=== PATIENT | female | born 1965 | race American Indian/Alaskan Native ===

== ENCOUNTER 2018-03-28 11:01 | Inpatient (IN) | payer MEDICARE, MEDICAID ==
--- NOTE | 2018-03-28 11:18 | ED PDOC ---
Arrival/HPI - General Chief Complaint: Weakness/Neurological Deficit Time Seen by Provider: 03/28/18 11:17 - History of Present Illness Narrative History of Present Illness (Text): 03/28/18 11:18 A 52 year old female, whose past medical history includes renal failure ( currently undergoing dialysis) and TIA, presents to the emergency department accompanied by family complaining of weakness in her bilateral lower extremities since yesterday. Patient reports her legs feel heavy and has been unable to ambulate due to this. Patient denies any fever, chills, shortness of breath, chest pain, diarrhea, nausea, vomiting, urinary symptoms, back pain, neck pain, headache, dizziness, or any other complaints. PMD: Dr. Pruitt Time/Duration: 24 hours (yesterday ) Symptom Onset: Gradual Symptom Course: Unchanged Activities at Onset: Light Context: Home Past Medical History - Provider Review Nursing Documentation Reviewed: Yes - Tetanus Immunization Tetanus Immunization: Unknown - Cardiac Hx Cardiac Disorders: Yes Hx Peripheral Vascular Disease: Yes - Pulmonary Hx Respiratory Disorders: Yes Hx Chronic Obstructive Pulmonary Disease (COPD): Yes Hx Emphysema: Yes - Neurological Hx Neurological Disorder: Yes Hx Transient Ischemic Attacks (TIA): Yes - HEENT Hx HEENT Disorder: Yes - Renal Hx Renal Disorder: Yes Hx Dialysis: Yes - Endocrine/Metabolic Hx Endocrine Disorders: Yes Hx Diabetes Mellitus Type 2: Yes - Integumentary Hx Dermatological Disorder: No - Musculoskeletal/Rheumatological Hx Musculoskeletal Disorders: Yes Hx Unsteady Gait: Yes - Gastrointestinal Hx Gastrointestinal Disorders: Yes Hx Gastroesophageal Reflux: Yes Other/Comment: Gastroparesis - Psychiatric Hx Psychophysiologic Disorder: Yes Hx Anxiety: Yes Hx Depression: Yes Hx Substance Use: No - Surgical History Hx Coronary Stent: Yes Hx Vascular Access Device: Yes - Anesthesia Hx Anesthesia: Yes Hx Anesthesia Reactions: No Family/Social History - Physician Review Nursing Documentation Reviewed: Yes Family/Social History: Unknown Family HX Smoking Status: Former Smoker Hx Alcohol Use: No Hx Substance Use: No Allergies/Home Meds Allergies/Adverse Reactions: Allergies levofloxacin [From Levaquin] Allergy (Verified 03/28/18 11:11) RASH Penicillins Allergy (Verified 03/28/18 11:11) RASH acetaminophen [From Tylenol PM] Adverse Reaction (Verified 03/28/18 11:11) NAUSEA diphenhydramine HCl [From Tylenol PM] Adverse Reaction (Verified 03/28/18 11:11) NAUSEA gabapentin Adverse Reaction (Verified 03/28/18 11:11) NAUSEA heparin Adverse Reaction (Verified 03/28/18 11:11) NAUSEA Shellfish Allergy (Uncoded 03/28/18 11:11) SWELLING Home Medications: Home Meds Medication Instructions Recorded Confirmed Aspirin [Ecotrin] 325 mg PO DAILY 08/03/17 03/28/18 Cinacalcet [Sensipar] 30 mg PO DAILY 08/03/17 03/28/18 Clopidogrel [Plavix] 1 tab PO DAILY 08/03/17 03/28/18 Isosorbide Mononitrate [Imdur] 1 tab PO DAILY 08/03/17 03/28/18 Multivitamin [Daily Mila] 1 tab PO DAILY 08/03/17 03/28/18 Omeprazole [Omeprazole] 40 mg PO DAILY 08/03/17 03/28/18 cloNIDine [Catapres] 1 tab PO TID 08/03/17 03/28/18 Labetalol [Trandate] 100 mg PO Q12 03/28/18 03/28/18 Review of Systems - Physician Review All systems were reviewed & negative as marked: Yes - Review of Systems Constitutional: absent: Fevers, Night Sweats Respiratory: absent: SOB Cardiovascular: absent: Chest Pain Gastrointestinal: absent: Diarrhea, Nausea, Vomiting Genitourinary Female: absent: Urine Output Changes Musculoskeletal: absent: Back Pain, Neck Pain Neurological: Other (weakness in bilateral lower extremities). absent: Headache , Dizziness Physical Exam Vital Signs Reviewed: Yes Vital Signs Temp Pulse Resp BP Pulse Ox 03/28/18 14:41 88 18 187/93 H 100 03/28/18 13:36 86 18 198/71 H 100 03/28/18 12:16 89 18 151/105 H 100 03/28/18 11:02 98.7 F 85 18 194/95 H 100 Temperature: Afebrile Blood Pressure: Hypertensive Pulse: Regular Respiratory Rate: Normal Appearance: Positive for: Well-Appearing, Non-Toxic, Comfortable Pain Distress: None Mental Status: Positive for: Alert and Oriented X 3 - Systems Exam Head: Present: Atraumatic, Normocephalic Pupils: Present: PERRL Extroacular Muscles: Present: EOMI Conjunctiva: Present: Normal Mouth: Present: Moist Mucous Membranes Neck: Present: Normal Range of Motion Respiratory/Chest: Present: Clear to Auscultation, Good Air Exchange. No: Respiratory Distress, Accessory Muscle Use Cardiovascular: Present: Murmurs (systolic ejection murmur radiating up to the neck), Other (thrill in right forearm ). No: Regular Rate and Rhythm, Normal S1 , S2, Irregular Rhythm, Peripheal Pulses Present, Tachycardic, Bradycardic, Rub , Gallop, Muffled Abdomen: No: Tenderness, Distention, Peritoneal Signs Back: Present: Normal Inspection Upper Extremity: Present: Normal Inspection. No: Cyanosis, Edema Lower Extremity: Present: Neurovascularly Intact (diminished sensations on bilateral lower extremities), Other (4 to 5 strenght bilateral extremities ). No: Normal Inspection, Edema, CALF TENDERNESS, NORMAL PULSES, Cyanosis, Normal ROM, Ankit's Sign, Tenderness, Swelling, Erythema, Deformity, Temperature Abnormalties, Capillary Refill < 2 s Neurological: Present: GCS=15, CN II-XII Intact, Speech Normal Skin: Present: Warm, Dry, Normal Color. No: Rashes Psychiatric: Present: Alert, Oriented x 3, Normal Insight, Normal Concentration Medical Decision Making ED Course and Treatment: 03/28/18 11:27 Impression: A 52 year old female presents to the emergency department complaining of weakness in her bilateral lower extremities. Differential Diagnosis included but are not limited to: Stroke Plan: -- Type and Screen stat -- Head CT without contrast [Code Stroke] -- EKG -- Labs -- Stroke Team consult -- CBC -- COAG -- Chest X-ray -- IV fluids -- Reassess and disposition Prior Visits: Notes and results from previous visits were reviewed. Progress Notes: 03/28/18 12:33 Dr. Newberry, neurology in the ED for eval 03/28/18 12:45 Dictator : Rafal Kim MD PROCEDURE: CT HEAD WITHOUT CONTRAST. FINDINGS: HEMORRHAGE: No acute parenchymal, subarachnoid or extra-axial hemorrhage. BRAIN: Mild moderate diffuse/confluent chronic periventricular white matter ischemic changes seen extending peripherally into the deep and subcortical white matter both cerebral hemispheres. In addition, there are age-indeterminate infarct changes seen in the left anterior basal ganglia. There appears to be a chronic small infarct left caudate head is well with localized ex vacuo dilatation of the left frontal horn. In addition, there are chronic appearing brainstem lacunar type infarcts. . Note that the possibility of a small hyperacute infarct cannot be excluded on this exam. VENTRICLES: No obstructive hydrocephalus CALVARIUM: There are no acute calvarial fracture seen. , PARANASAL SINUSES: Mild mucosal thickening seen within a few ethmoid air cells. MASTOID AIR CELLS: Unremarkable as visualized. No inflammatory changes. OTHER FINDINGS: Changes of bilateral cataract surgery. IMPRESSION: No acute intracranial hemorrhage. Chronic white matter ischemic changes. Age- indeterminate left anterior ganglia lacunar type infarcts. In addition, there are a few chronic appearing lacunar seen in the left caudate head and left the brainstem. Note that the possibility of a small hyperacute infarct cannot be excluded on this exam. Findings discussed with emergency room resident Dr. Bateman at approximately 11:45 a.m. with written down and read back verification. 03/28/18 15:[address] newberry, patient to maintain plavix for now. admit accepted by hospitalist, patient to be admitted for acute cva and further workup.mirian was not a candiate for thrombolysis as she presented far out of therpeutic window. 03/28/18 15:12 patient is able to swallow, patient does not have swallowing difficulty and can take po aspirin 03/28/18 15:13 03/28/18 15:41 Staff Home Therapy Rn : Rafal Kim MD PROCEDURE: CHEST XRAY Portable FINDINGS: LUNGS: Poor inspiration with low lung volumes, crowded bronchovascular markings and minor bibasilar atelectasis. PLEURA: No significant pleural effusion identified, no pneumothorax apparent. CARDIOVASCULAR: Heart appears mildly enlarged. . Re- demonstrated is an endovascular stent in the right subclavian region. The OSSEOUS STRUCTURES: No significant abnormalities. VISUALIZED UPPER ABDOMEN: Normal. OTHER FINDINGS: None. IMPRESSION: Poor inspiration with low lung volumes, crowded bronchovascular markings and minor bibasilar atelectasis. -------- Dictator: Rafal Kim MD PROCEDURE: MRI BRAIN WITHOUT CONTRAST FINDINGS: HEMORRHAGE: No acute parenchymal, subarachnoid or extra-axial hemorrhage. No evidence of hemosiderin deposition seen on gradient echo weighted sequence. DWI: There is a tiny acute infarct in the left posterolateral thalamus. . BRAIN PARENCHYMA: Moderate diffuse/ confluent chronic periventricular white matter ischemic changes the seen extending peripherally into the deep and subcortical white matter both cerebral hemispheres. There is also some involvement of the anterior margin of the corpus callosum as well. Chronic appearing bilateral basal nuclei and brainstem lacunar type infarcts also present. Moderate generalized volume loss. VENTRICLES: No obstructive hydrocephalus. CRANIUM: Unremarkable. ORBITS: Grossly unremarkable. PARANASAL SINUSES/MASTOIDS: Clear VASCULAR SYSTEM: Skull base flow voids intact. OTHER FINDINGS: None. IMPRESSION: Very limited motion degraded study. There is a small acute infarct left posterolateral thalamus. Mild to moderate chronic white matter ischemic changes with scattered chronic bilateral basal nuclei lacunar type infarcts. Chronic appearing brainstem Moderate generalized volume loss. Lacunar type infarcts also present. Findings discussed with me at approximately 2:40 p.m. with written down and read back verification. - Lab Interpretations Lab Results: 03/28/18 11:35 03/28/18 13:25 Lab Results 03/28/18 13:25: Sodium 139, Potassium 5.4 H, Chloride 96 L, Carbon Dioxide 26, Anion Gap 22 H, BUN 38 H, Creatinine 9.0 H*, Est GFR ( Amer) 6, Est GFR ( Non-Af Amer) 5, Random Glucose 126 H, Calcium 8.8, Total Bilirubin 1.0, AST 23, ALT 11, Alkaline Phosphatase 240 H D, Troponin I 0.04, Total Protein 8.2, Albumin 4.8, Globulin 3.5, Albumin/Globulin Ratio 1.4, Triglycerides 106, Cholesterol 232 H, LDL Cholesterol Direct 117, HDL Cholesterol 55 03/28/18 12:55: Blood Type Confirm O POSITIVE 03/28/18 12:04: Blood Type O POSITIVE, Antibody Screen Negative, BBK History Checked No verified bt 03/28/18 11:35: PT 10.9, INR 0.95, APTT 31.6 03/28/18 11:35: WBC 5.8, RBC 4.55, Hgb 13.2, Hct 39.2, MCV 86.2, MCH 29.0, MCHC 33.7, RDW 15.9 H, Plt Count 259, MPV 12.7 H, Gran % 57.4, Lymph % (Auto) 26.1, Coffey % (Auto) 6.6 H, Eos % (Auto) 8.7 H, Baso % (Auto) 1.2, Gran # 3.32, Lymph # (Auto) 1.5, Coffey # (Auto) 0.4, Eos # (Auto) 0.5, Baso # (Auto) 0.07 - RAD Interpretation Radiology Orders: 03/28/18 11:20 HEAD W/O (CODE STROKE) [CT] Stat CHEST PORTABLE [RAD] Stat 03/28/18 12:38 BRAIN WITHOUT CONTRAST [MRI] Stat 03/28/18 12:39 SPINAL CANAL LUMBAR W/O CONT [MRI] Stat - EKG Interpretation EKG Interpretation (Text): 03/28/18 12:14 1206: nsr at 87 bpm, nml qrs, nml axis, lateral t wave abn, prolonged qt, findings unchanged from prior ekg in [facility] records Interpreted by ED Physician: Yes - Medication Orders Current Medication Orders: Sodium Chloride (Sodium Chloride 0.9%) 1,000 mls @ 100 mls/hr IV .Q10H LUIS Last Admin: 03/28/18 12:20 Dose: 100 mls/hr eMAR Start Stop Document 03/28/18 12:20 GMD (Rec: 03/28/18 12:20 GMD [id number]) Intravenous Solution Start Date 03/28/18 Start Time 12:20 Discontinued Medications Aspirin (Ecotrin) 81 mg PO STAT STA Stop: 03/28/18 15:11 Last Admin: 03/28/18 15:38 Dose: 81 mg Lorazepam (Ativan) 1 mg IVP ONCE ONE PRN Reason: Protocol Stop: 03/28/18 13:18 Last Admin: 03/28/18 13:28 Dose: 1 mg IVP Administration Document 03/28/18 13:28 GMD (Rec: 03/28/18 13:28 GMD [id number]) Charges for Administration # of IVP Administrations 1 NIHSS Stroke Scale 3 - Date/Time Evaluation Performed Date Performed: 03/28/18 Time Performed: 15:13 When Was NIHSS Performed: Baseline - How Severe is the Stroke Level of Consciousness: 0=Alert LOC to Questions: 0=Both comments correct LOC to commands: 0=Obeys both correctly Best Gaze: 0=Normal Visual: 0=No visual loss Facial: 0=Normal Motor Arm - Left: 0=No drift Motor Arm - Right: 0=No drift Motor Leg - Left: 0=No drift Motor Leg - Right: 0=No drift Limb Ataxia: 0=Absent Sensory: 1=Mild to moderate loss Best Language: 0=No aphasia Dysarthia: 0=Normal articulation Extinction & Inattention (Neglect): 0=Normal, no object Score: 1 - Scribe Statement The provider has reviewed the documentation as recorded by the Ildefonsoibeva Pabon All medical record entries made by the Scribe were at my direction and personally dictated by me. I have reviewed the chart and agree that the record accurately reflects my personal performance of the history, physical exam, medical decision making, and the department course for this patient. I have also personally directed, reviewed, and agree with the discharge instructions and disposition. Disposition/Present on Arrival - Present on Arrival Any Indicators Present on Arrival: No History of DVT/PE: No History of Uncontrolled Diabetes: Yes Urinary Catheter: No History of Decub. Ulcer: No History Surgical Site Infection Following: None - Disposition Have Diagnosis and Disposition been Completed?: Yes Diagnosis: CVA (cerebral vascular accident) Disposition: HOSPITALIZED Disposition Time: 15:09 Patient Plan: Admission Patient Problems: Current Active Problems Problem Status Onset CVA (cerebral vascular accident) Acute Condition: STABLE Forms: [employer] (Finnish)
[2018-03-28] MEDS ORDERED: Sodium Chloride 0.9% 1,000 ML IV SCH (11:30)
--- NOTE | 2018-03-28 12:02 | CT ---
Date of service: 03/28/2018 PROCEDURE: CT HEAD WITHOUT CONTRAST. HISTORY: Code Stroke COMPARISON: No prior study available comparison TECHNIQUE: Axial computed tomography images were obtained through the head/brain without intravenous contrast. Radiation dose: Total exam DLP = 921.68 mGy-cm. This CT exam was performed using one or more of the following dose reduction techniques: Automated exposure control, adjustment of the mA and/or kV according to patient size, and/or use of iterative reconstruction technique. FINDINGS: HEMORRHAGE: No acute parenchymal, subarachnoid or extra-axial hemorrhage. BRAIN: Mild moderate diffuse/confluent chronic periventricular white matter ischemic changes seen extending peripherally into the deep and subcortical white matter both cerebral hemispheres. In addition, there are age-indeterminate infarct changes seen in the left anterior basal ganglia. There appears to be a chronic small infarct left caudate head is well with localized ex vacuo dilatation of the left frontal horn. In addition, there are chronic appearing brainstem lacunar type infarcts. . Note that the possibility of a small hyperacute infarct cannot be excluded on this exam. VENTRICLES: No obstructive hydrocephalus CALVARIUM: There are no acute calvarial fracture seen. , PARANASAL SINUSES: Mild mucosal thickening seen within a few ethmoid air cells. MASTOID AIR CELLS: Unremarkable as visualized. No inflammatory changes. OTHER FINDINGS: Changes of bilateral cataract surgery. IMPRESSION: No acute intracranial hemorrhage. Chronic white matter ischemic changes. Age-indeterminate left anterior ganglia lacunar type infarcts. In addition, there are a few chronic appearing lacunar seen in the left caudate head and left the brainstem. Note that the possibility of a small hyperacute infarct cannot be excluded on this exam. Findings discussed with emergency room resident Dr. Bateman at approximately 11:45 a.m. with written down and read back verification.
[2018-03-28 12:20] LABS: BASO # 0.07 K/mm3 (0.0-2.0); BASO % 1.2 % (0.0-3.0); EOS # 0.5 (0.0-0.7); EOS % 8.7 % (1.5-5.0); GRAN # 3.32 (1.4-6.5); GRAN % 57.4 % (50.0-68.0); HEMOGLOBIN 13.2 g/dL (12.0-16.0); LYMPH # 1.5 (1.2-3.4); LYMPH % 26.1 % (22.0-35.0); MEAN CELL VOLUME 86.2 fl (80.0-105.0); MEAN CORPUSCULAR HGB CONC 33.7 g/dl (31.0-37.0); MEAN PLATELET VOLUME 12.7 fl (7.0-11.0); MONO # 0.4 (0.1-0.6); MONO % 6.6 % (1.0-6.0); RBC 4.55 10^6/uL (3.5-6.1); RED CELL DISTRIBUTION WIDTH 15.9 % (11.5-14.5); WHITE BLOOD COUNT 5.8 10^3/ul (4.5-11.0)
[2018-03-28 12:25] LABS: INR 0.95; PARTIAL THROMBOPLASTIN TIME 31.6 Seconds (25.1-36.5); PROTHROMBIN TIME 10.9 SECONDS (9.4-12.5)
--- NOTE | 2018-03-28 12:56 | CP.PCM.CON ---
History of Present Illness - History of Present Illness History of Present Illness: As per chart: 52 year old female, whose past medical history includes renal failure (currently undergoing dialysis) and TIA, presents to the emergency department accompanied by family complaining of weakness in her bilateral lower extremities since yesterday. Patient reports her legs feel heavy and has been unable to ambulate due to this. Patient denies any fever, chills, shortness of breath, chest pain, diarrhea, nausea, vomiting, urinary symptoms, back pain, neck pain, headache, dizziness, or any other complaints. PMD: Dr. Pruitt on exam: Neurological exam is normal, with normal strength, sensory and reflexes in upper and lower limbs. There is no sensory level, nor is there bowel or bladder incontinence. Patient refusing to walk. Past Patient History - Tetanus Immunizations Tetanus Immunization: Unknown - Past Medical History & Family History Past Medical History?: Yes - Past Social History Smoking Status: Former Smoker - CARDIAC Hx Cardiac Disorders: Yes Hx Peripheral Vascular Disease: Yes - PULMONARY Hx Respiratory Disorders: Yes Hx Chronic Obstructive Pulmonary Disease (COPD): Yes Hx Emphysema: Yes - NEUROLOGICAL Hx Neurological Disorder: Yes Hx Transient Ischemic Attacks (TIA): Yes - HEENT Hx HEENT Problems: Yes - RENAL Hx Chronic Kidney Disease: Yes Hx Dialysis: Yes - ENDOCRINE/METABOLIC Hx Endocrine Disorders: Yes Hx Diabetes Mellitus Type 2: Yes - INTEGUMENTARY Hx Dermatological Problems: No - MUSCULOSKELETAL/RHEUMATOLOGICAL Hx Musculoskeletal Disorders: Yes Hx Unsteady Gait: Yes - GASTROINTESTINAL Hx Gastrointestinal Disorders: Yes Hx Gastroesophageal Reflux: Yes Other/Comment: Gastroparesis - PSYCHIATRIC Hx Psychophysiologic Disorder: Yes Hx Anxiety: Yes Hx Depression: Yes Hx Substance Use: No - SURGICAL HISTORY Hx Coronary Stent: Yes Hx Vascular Access Device: Yes - ANESTHESIA Hx Anesthesia: Yes Hx Anesthesia Reactions: No Meds Allergies/Adverse Reactions: Allergies Allergy/AdvReac Type Severity Reaction Status Date / Time levofloxacin [From Levaquin] Allergy RASH Verified 03/28/18 18:14 Penicillins Allergy RASH Verified 03/28/18 18:14 acetaminophen AdvReac NAUSEA Verified 03/28/18 18:14 [From Tylenol PM] diphenhydramine HCl AdvReac NAUSEA Verified 03/28/18 18:14 [From Tylenol PM] gabapentin AdvReac NAUSEA Verified 03/28/18 18:14 heparin AdvReac NAUSEA Verified 03/28/18 18:14 Shellfish Allergy SWELLING Uncoded 03/28/18 18:14 - Medications Medications: Current Medications Sodium Chloride (Sodium Chloride 0.9%) 1,000 mls @ 100 mls/hr IV .Q10H LUIS Last Admin: 03/28/18 12:20 Dose: 100 mls/hr Results - Vital Signs Recent Vital Signs: Last Vital Signs Temp 98.7 F 03/28/18 11:02 Pulse 89 03/28/18 12:16 Resp 18 03/28/18 12:16 BP 151/105 H 03/28/18 12:16 Pulse Ox 100 03/28/18 12:16 - Labs Result Diagrams: 03/29/18 06:30 03/29/18 06:30 Labs: Laboratory Results - last 24 hr 03/28/18 03/28/18 03/28/18 11:35 11:35 12:04 WBC 5.8 RBC 4.55 Hgb 13.2 Hct 39.2 MCV 86.2 MCH 29.0 MCHC 33.7 RDW 15.9 H Plt Count 259 MPV 12.7 H Gran % 57.4 Lymph % (Auto) 26.1 Bryan % (Auto) 6.6 H Eos % (Auto) 8.7 H Baso % (Auto) 1.2 Gran # 3.32 Lymph # (Auto) 1.5 Bryan # (Auto) 0.4 Eos # (Auto) 0.5 Baso # (Auto) 0.07 PT 10.9 INR 0.95 APTT 31.6 BBK History Checked No verified bt Assessment & Plan - Assessment and Plan (Free Text) Assessment: Ct head : shows no acute strokes, but chronic lacunar infarcts. A/p: 52 yr old woman with ESRD on HD, who has a perception of generalized leg weakness, but no neurological indication of weakness. However, with her old history of stroke, we will obtain an MRI Brain and await results. This also does not appear to be Guillain Felicity syndrome. Plan: 1. MRI brain without contrast If normal, would recommend discharge. Thank you Dr. Magana
[2018-03-28 14:00] LABS: TROPONIN I 0.04 ng/mL
[2018-03-28 14:10] LABS: ALB/GLOB RATIO 1.4 (1.1-1.8); ALBUMIN 4.8 g/dL (3.0-4.8); CALCIUM 8.8 mg/dL (8.4-10.5)
--- NOTE | 2018-03-28 14:39 | MRI ---
Date of service: 03/28/2018 PROCEDURE: MRI BRAIN WITHOUT CONTRAST HISTORY: weakness COMPARISON: None available. TECHNIQUE: Multiplanar, multisequence MR images of the brain were obtained without intravenous contrast enhancement. Limited motion degraded study. FINDINGS: HEMORRHAGE: No acute parenchymal, subarachnoid or extra-axial hemorrhage. No evidence of hemosiderin deposition seen on gradient echo weighted sequence. DWI: There is a tiny acute infarct in the left posterolateral thalamus. . BRAIN PARENCHYMA: Moderate diffuse/ confluent chronic periventricular white matter ischemic changes the seen extending peripherally into the deep and subcortical white matter both cerebral hemispheres. There is also some involvement of the anterior margin of the corpus callosum as well. Chronic appearing bilateral basal nuclei and brainstem lacunar type infarcts also present. Moderate generalized volume loss. VENTRICLES: No obstructive hydrocephalus. CRANIUM: Unremarkable. ORBITS: Grossly unremarkable. PARANASAL SINUSES/MASTOIDS: Clear VASCULAR SYSTEM: Skull base flow voids intact. OTHER FINDINGS: None. IMPRESSION: Very limited motion degraded study. There is a small acute infarct left posterolateral thalamus. Mild to moderate chronic white matter ischemic changes with scattered chronic bilateral basal nuclei lacunar type infarcts. Chronic appearing brainstem Moderate generalized volume loss. Lacunar type infarcts also present Findings discussed with Dr. Tobar at approximately 2:40 p.m. with written down and read back verification.
--- NOTE | 2018-03-28 15:34 | RAD ---
Date of service: 03/28/2018 HISTORY: Code Stroke COMPARISON: No prior. FINDINGS: LUNGS: Poor inspiration with low lung volumes, crowded bronchovascular markings and minor bibasilar atelectasis. PLEURA: No significant pleural effusion identified, no pneumothorax apparent. CARDIOVASCULAR: Heart appears mildly enlarged. . Re- demonstrated is an endovascular stent in the right subclavian region. The OSSEOUS STRUCTURES: No significant abnormalities. VISUALIZED UPPER ABDOMEN: Normal. OTHER FINDINGS: None. IMPRESSION: Poor inspiration with low lung volumes, crowded bronchovascular markings and minor bibasilar atelectasis.
[2018-03-28] MEDS ORDERED: Aspirin 325 mg EC Tablets PO SCH (16:30)
--- NOTE | 2018-03-28 16:43 | MRI ---
Date of service: 03/28/2018 PROCEDURE: MR LUMBAR SPINE WITHOUT CONTRAST HISTORY: leg weakness COMPARISON: None available. TECHNIQUE: Multiecho multiplanar sequences were performed through the lumbar spine without the use of intravenous contrast. FINDINGS: Study is limited by motion artifact. Normal lumbar lordosis. Vertebral body heights are preserved. Marrow signal unremarkable. Conus medullaris unremarkable at the level of Paraspinal soft tissues are unremarkable. T12-L1: No disc herniation, spinal canal stenosis or neural foraminal narrowing. L1-2: No disc herniation, spinal canal stenosis or neural foraminal narrowing. L2-3: Adequate disc height and hydration. No disc herniation or significant disc bulge. Mild facet overgrowth. Central canal and exit foramina adequate. L3-4: Adequate disc height and hydration No disc herniation or significant disc bulge. Mild facet arthropathy. L4-5: Adequate disc height and hydration. No disc herniation or significant disc bulge. Mild to moderate facet arthropathy. The proximal exit format on marginal to minimally narrowed. . L5-S1: Adequate disc height and hydration. No disc herniation or significant disc bulge. Mild facet arthropathy. . Central canal appears adequate. Proximal exit foramina appear narrowed. OTHER FINDINGS: Note made of bilateral atrophic kidneys which contain multiple varying sized cysts. IMPRESSION: Limited motion degraded study. There are no acute compression fractures no retropulsed fragments. . Atrophic kidneys with containing multiple bilateral renal cysts.
--- NOTE | 2018-03-28 19:31 | CP.PCM.HP ---
<ParveenGordy morales - Last Filed: 03/30/18 15:20> History of Present Illness - History of Present Illness History of Present Illness: Gordy Tate, PGY-[address] Connors 52 y/o female PMHx of ESRD on HD (MWF), GERD, HTN, DM, CVA, TIA dyslipidemia presents to the ED with bilateral lower extremities weakness for 2 days . Her blood pressure is consistently high despite taking her BP meds. She is on Metoprolol 50 mg and Clonidine 0.1 mg x3 and Labetalol 100 mg BID. She also complains of abdominal pain that is persistent for more than one year which she relates to her diabetes. Patient denies headache, blurry vision, chest pain, palpitations, shortness of breath, nausea vomiting or diarrhea, urinary or bowel incontinence, numbness or tingling, loss of sensation or other focal newrologic symptoms. 12-point ROS reviewed with pertinent positives as per HPI PMH: DM2, Diabetic Neuropathy; Gastroparesis,HTN, ESRD on HD, CAD s/p stentsX4, COPD, TIA, GERD PSH: Kidney transplant 2007; Reversal on transplant 2014; retinopathy surgery to both eyes; Cataract surgery;Dialysis graft at the right upper arm SH: ex smoker. denied alcohol, illicit drug use. lives alone FH: mother at age 74 of CAD, bother had complicated diabetic limb amputation. Father of TB MEDS: Metoprolol 50 mg and Clonidine 0.1 mg x3 and Labetalol 100 mg BID Allergies: Levaquin.PCN;Tylenol; Benadryl Pharmacy: [facility] Quarter Backer : Dr Churchill Present on Admission - Present on Admission Any Indicators Present on Admission: No Review of Systems - Constitutional Constitutional: absent: Chills, Fever, Headache - EENT Eyes: absent: Blurred Vision, Discharge, Pain Nose/Mouth/Throat: absent: Nasal Congestion, Sinus Pain, Bleeding Gums - Cardiovascular Cardiovascular: absent: Chest Pain, Claudication, Edema, Palpitations, Pedal Edema - Respiratory Respiratory: absent: Cough, Dyspnea, Hemoptysis - Gastrointestinal Gastrointestinal: Bloating, Dyspepsia, Early Satiety, Heartburn. absent: Cramping, Diarrhea - Genitourinary Genitourinary: absent: Change in Urinary Stream, Pyuria, Urinary Hesitance, Freq UTI - Musculoskeletal Musculoskeletal: Muscle Weakness, Numbness - Integumentary Integumentary: absent: Lesions, Rash - Neurological Neurological: Burning Sensations. absent: Focal Weakness, Headaches, Radicular Pain, Sensory Deficit - Psychiatric Psychiatric: absent: Anxiety, Panic Attacks - Endocrine Endocrine: absent: Cold Intolorance, Flushing - Hematologic/Lymphatic Hematologic: absent: Easy Bleeding, Easy Bruising Past Patient History - Tetanus Immunizations Tetanus Immunization: Unknown - Past Medical History & Family History Past Medical History?: Yes - Past Social History Smoking Status: Former Smoker - CARDIAC Hx Cardiac Disorders: Yes Hx Peripheral Vascular Disease: Yes - PULMONARY Hx Respiratory Disorders: Yes Hx Chronic Obstructive Pulmonary Disease (COPD): Yes Hx Emphysema: Yes - NEUROLOGICAL Hx Neurological Disorder: Yes Hx Transient Ischemic Attacks (TIA): Yes - HEENT Hx HEENT Problems: Yes - RENAL Hx Chronic Kidney Disease: Yes Hx Dialysis: Yes - ENDOCRINE/METABOLIC Hx Endocrine Disorders: Yes Hx Diabetes Mellitus Type 2: Yes - INTEGUMENTARY Hx Dermatological Problems: No - MUSCULOSKELETAL/RHEUMATOLOGICAL Hx Musculoskeletal Disorders: Yes Hx Unsteady Gait: Yes - GASTROINTESTINAL Hx Gastrointestinal Disorders: Yes Hx Gastroesophageal Reflux: Yes Other/Comment: Gastroparesis - PSYCHIATRIC Hx Psychophysiologic Disorder: Yes Hx Anxiety: Yes Hx Depression: Yes Hx Substance Use: No - SURGICAL HISTORY Hx Coronary Stent: Yes Hx Vascular Access Device: Yes - ANESTHESIA Hx Anesthesia: Yes Hx Anesthesia Reactions: No Meds Allergies/Adverse Reactions: Allergies Allergy/AdvReac Type Severity Reaction Status Date / Time levofloxacin [From Levaquin] Allergy RASH Verified 03/28/18 18:14 Penicillins Allergy RASH Verified 03/28/18 18:14 acetaminophen AdvReac NAUSEA Verified 03/28/18 18:14 [From Tylenol PM] diphenhydramine HCl AdvReac NAUSEA Verified 03/28/18 18:14 [From Tylenol PM] gabapentin AdvReac NAUSEA Verified 03/28/18 18:14 heparin AdvReac NAUSEA Verified 03/28/18 18:14 Shellfish Allergy SWELLING Uncoded 03/28/18 18:14 Physical Exam - Constitutional Appears: Well, No Acute Distress - Head Exam Head Exam: ATRAUMATIC, NORMAL INSPECTION, NORMOCEPHALIC - Eye Exam Eye Exam: EOMI, Normal appearance, PERRL Pupil Exam: NORMAL ACCOMODATION, PERRL - ENT Exam ENT Exam: Mucous Membranes Moist, Normal Exam - Neck Exam Neck exam: Positive for: Normal Inspection. Negative for: Thyromegaly - Respiratory Exam Respiratory Exam: Clear to Auscultation Bilateral, NORMAL BREATHING PATTERN - Cardiovascular Exam Cardiovascular Exam: REGULAR RHYTHM, +S1, +S2 - GI/Abdominal Exam GI & Abdominal Exam: Normal Bowel Sounds, Soft. absent: Organomegaly, Rigid Additional comments: diffuse TTP - Rectal Exam Rectal Exam: Deferred - Extremities Exam Extremities exam: Positive for: normal inspection - Back Exam Back exam: NORMAL INSPECTION - Neurological Exam Neurological exam: Alert, CN II-XII Intact, Normal Gait, Oriented x3, Reflexes Normal Additional comments: 4/5 muscle strength b/l. intact sensation. - Skin Skin Exam: Dry, Intact, Normal Color, Warm Results - Vital Signs Recent Vital Signs: Last Vital Signs Temp 98.7 F 03/28/18 11:02 Pulse 93 H 03/28/18 18:12 Resp 18 03/28/18 18:12 BP 177/61 H 03/28/18 18:12 Pulse Ox 100 03/28/18 18:12 - Labs Result Diagrams: 03/28/18 11:35 03/28/18 13:25 Assessment & Plan - Assessment and Plan (Free Text) Assessment: 52 y/o female PMHx of ESRD on HD (MWF), GERD, HTN, DM, CVA, TIA dyslipidemia presents to the ED with bilateral lower extremities weakness for [address] head is negative for acute changes. Patient was admitted to the telemetry unit for blood pressure management Plan: Bilateral lower extremity weakness -Patient has 4/5 muscle strength b/l LE on physical exam -CT head : shows no acute strokes. chronic lacunar infarcts -Neuo consulted Dr Magana: perception of generalized leg weakness, but no neurological indication of weakness. MRI brain without contrast, if normal, would recommend discharge -MRI Brain ordered -Swallow screen test ESRD on HD: - Patient on HD M/W/F. last HD yesterday - Nephro consulted Dr Dimitri Churchill - Renal diet. Low potassium - Trop 0.4 x1 - BUN/Cr 38/9 - K 5.4 HTN -Uncontrolled BP despite patient's compliance with meds -Admitted to the telemetry unit for blood pressure management -Resume home meds amlodipine 10 -Continue home med Clonidine 0.1mg TID -Continue home med Labetalol 100 mg BID -Continue home med asa 81, plavix 75, lipitor 80 -Vital signs q4hr DM2 -HgA1c -ISS-medium -Accu-check -neuro check -Fall precations -Aspiration precaution -PT eval/treat -GI ppx Pantoprazole -DVT ppx SCD - Date & Time Date: 03/28/18 Time: 16:15 <Lexi Connors - Last Filed: 03/30/18 18:15> Results - Vital Signs Recent Vital Signs: Last Vital Signs Temp 99 F 03/30/18 12:00 Pulse 72 03/30/18 12:00 Resp 18 03/30/18 12:00 BP 179/78 H 03/30/18 12:00 Pulse Ox 100 03/30/18 06:00 - Labs Result Diagrams: 03/30/18 11:20 03/30/18 11:20 Labs: Laboratory Results - last 24 hr 03/28/18 03/28/18 03/29/18 15:13 21:49 07:03 WBC RBC Hgb Hct MCV MCH MCHC RDW Plt Count MPV Gran % Lymph % (Auto) [place] % (Auto) Eos % (Auto) Baso % (Auto) Gran # Lymph # (Auto) [place] # (Auto) Eos # (Auto) Baso # (Auto) Sodium Potassium Chloride Carbon Dioxide Anion Gap BUN Creatinine Est GFR ( Amer) Est GFR (Non-Af Amer) POC Glucose (mg/dL) 128 H 223 H 221 H Random Glucose Calcium Total Bilirubin AST ALT Alkaline Phosphatase Total Protein Albumin Globulin Albumin/Globulin Ratio 03/29/18 03/29/18 03/29/18 11:01 16:05 21:35 WBC RBC Hgb Hct MCV MCH MCHC RDW Plt Count MPV Gran % Lymph % (Auto) [place] % (Auto) Eos % (Auto) Baso % (Auto) Gran # Lymph # (Auto) [place] # (Auto) Eos # (Auto) Baso # (Auto) Sodium Potassium Chloride Carbon Dioxide Anion Gap BUN Creatinine Est GFR ( Amer) Est GFR (Non-Af Amer) POC Glucose (mg/dL) 240 H 214 H 310 H Random Glucose Calcium Total Bilirubin AST ALT Alkaline Phosphatase Total Protein Albumin Globulin Albumin/Globulin Ratio 03/30/18 03/30/18 03/30/18 07:08 11:20 11:20 WBC 4.9 RBC 4.24 Hgb 12.4 Hct 36.5 MCV 86.1 MCH 29.2 MCHC 34.0 RDW 15.7 H Plt Count 202 MPV 11.6 H Gran % 49.5 L Lymph % (Auto) 33.9 [place] % (Auto) 6.7 H Eos % (Auto) 8.3 H Baso % (Auto) 1.6 Gran # 2.44 Lymph # (Auto) 1.7 [place] # (Auto) 0.3 Eos # (Auto) 0.4 Baso # (Auto) 0.08 Sodium 140 Potassium 5.6 H* Chloride 96 L Carbon Dioxide 23 Anion Gap 27 H BUN 73 H Creatinine 13.8 H* D Est GFR ( Amer) 3 Est GFR (Non-Af Amer) 3 POC Glucose (mg/dL) 233 H Random Glucose 201 H Calcium 8.3 L Total Bilirubin 0.8 AST 18 ALT 12 Alkaline Phosphatase 209 H Total Protein 8.2 Albumin 4.8 Globulin 3.4 Albumin/Globulin Ratio 1.4 03/30/18 11:58 WBC RBC Hgb Hct MCV MCH MCHC RDW Plt Count MPV Gran % Lymph % (Auto) [place] % (Auto) Eos % (Auto) Baso % (Auto) Gran # Lymph # (Auto) [place] # (Auto) Eos # (Auto) Baso # (Auto) Sodium Potassium Chloride Carbon Dioxide Anion Gap BUN Creatinine Est GFR ( Amer) Est GFR (Non-Af Amer) POC Glucose (mg/dL) 234 H Random Glucose Calcium Total Bilirubin AST ALT Alkaline Phosphatase Total Protein Albumin Globulin Albumin/Globulin Ratio Attending/Attestation - Attestation I have personally seen and examined this patient.: Yes I have fully participated in the care of the patient.: Yes I have reviewed all pertinent clinical information: Yes Notes (Text): 03/30/18 18:07 Attending note; Patient seen and examined with resident. Patient is a 52 year old female with PMHx of ESRD on HD (MWF), GERD, HTN, DM, CVA, TIA dyslipidemia presents to the ED with bilateral lower extremities weakness for 2 days. The patient was found to have elevated blood pressure in the ER. CT head is negative for acute stroke. MRI ordered. Patient passed the swallow eval. Continue aspirin and Plavix. End-stage renal disease on dialysis; patient got dialysis yesterday. Hyperkalemia; low potassium diet ordered. Hypertension; uncontrolled. Started on clonidine, labetalol and Norvasc. Monitor blood pressure closely. Neurology evaluation requested. Monitor patient closely in telemetry floor. Upon discharge the patient will follow-up with PMD Dr. Mcgowan.
[2018-03-28 21:13] VITALS: BMI 31.5
[2018-03-28] MEDS ORDERED: Pneumococcal 23-Valent Vaccine IM ONE (21:13)
[2018-03-28] MEDS: Insulin Reg-MEDIUM-Coverage SC SCH (22:17)
--- NOTE | 2018-03-29 05:41 | CP.PCM.PN ---
<[place] - Last Filed: 03/29/18 05:46> Subjective - Date & Time of Evaluation Date of Evaluation: 03/29/18 Time of Evaluation: 05:39 - Subjective Subjective: Ms. Bah was seen and examined at the bedside. She is alert, oriented in all spheres. She denies any headache. 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 Her pupils are reactive to the left eye, 2 mm., sensation is asymmetrical especially in her right facial area which is diminished. She has slight right side weakness ( pt. has hx of CVA). MRI of the brain showed There is a small acute infarct left posterolateral thalamus.Mild to moderate chronic white matter ischemic changes with scattered chronic bilateral basal nuclei lacunar type infarcts. Chronic appearing brainstem .Moderate generalized volume loss. Lacunar type infarcts also present. MRI of the lumbar spine showed There are no acute compression fractures no retropulsed fragments. Atrophic kidneys with containing multiple bilateral renal cysts. There was no untoward events overnight. Objective - Vital Signs/Intake and Output Vital Signs (last 24 hours): Temp Pulse Resp BP Pulse Ox 98.6 F 82 18 166/82 H 100 03/28/18 20:49 03/29/18 05:19 03/28/18 20:49 03/29/18 00:00 03/28/18 18:12 Intake and Output: 03/28/18 03/29/18 18:59 06:59 Intake Total 240 Balance 240 - Medications Medications: Current Medications Amlodipine Besylate (Norvasc) 10 mg PO DAILY [facility] Last Admin: 03/28/18 19:15 Dose: Not Given Aspirin (Ecotrin) 81 mg PO DAILY [facility] Atorvastatin Calcium (Lipitor) 80 mg PO HS [facility] Last Admin: 03/28/18 22:16 Dose: 80 mg Cinacalcet (Sensipar) 30 mg PO DAILY [facility] Clonidine HCl (Catapres) 0.1 mg PO TID [facility] Clopidogrel Bisulfate (Plavix) 75 mg PO DAILY [facility] Insulin Human Regular (Humulin R Med) 0 units SC ACHS [facility] PRN Reason: Protocol Last Admin: 03/28/18 22:17 Dose: Not Given Labetalol HCl (Trandate) 100 mg PO Q12 [facility] Last Admin: 03/28/18 22:16 Dose: 100 mg Multivitamins/Minerals (Therapeutic-M Tab) 1 tab PO DAILY [facility] Pantoprazole Sodium (Protonix Ec Tab) 40 mg PO 0600 [facility] - Labs Labs: PT 10.9 SECONDS (9.4-12.5) 03/28/18 11:35 INR 0.95 03/28/18 11:35 APTT 31.6 Seconds (25.1-36.5) 03/28/18 11:35 - Constitutional Appears: No Acute Distress - Head Exam Head Exam: NORMAL INSPECTION - Eye Exam Pupil Exam: Unequal Additional comments: right eye 4 mm fixed ( blind), left eye 2mm sluggish - Neurological Exam Neurological Exam: Alert, Awake, Oriented x3 Neuro motor strength exam: Left Upper Extremity: 5, Right Upper Extremity: 5, Left Lower Extremity: 5, Right Lower Extremity: 4 Additional comments: alert, awake, oriented in all spheres, follows commands, sensation is asymmetrical in her right facial area. Assessment and Plan (1) CVA (cerebral vascular accident) Assessment & Plan: Continue all current medical, physical, occupational therapies. Recommend permissive HTN until 12 noon today, treat blood pressure above 220/110 mmHG. Blood pressure control after 12 nn, echocardiogram, carotid doppler, hypercoagulability studt, ST eval and treat, keep head of bed elevated at least 30 degrees. Status: Acute <Newberry,Gautami - Last Filed: 03/31/18 12:55> Objective - Vital Signs/Intake and Output Vital Signs (last 24 hours): Temp Pulse Resp BP Pulse Ox 98.3 F 71 20 130/73 100 03/31/18 11:55 03/31/18 11:55 03/31/18 11:55 03/31/18 11:55 03/31/18 06:00 Intake and Output: 03/31/18 03/31/18 06:59 18:59 Intake Total 180 Output Total 0 Balance 180 - Medications Medications: Current Medications Amlodipine Besylate (Norvasc) 10 mg PO DAILY [facility] Last Admin: 03/31/18 10:09 Dose: 10 mg Aspirin (Ecotrin) 81 mg PO DAILY [facility] Last Admin: 03/31/18 10:09 Dose: 81 mg Atorvastatin Calcium (Lipitor) 80 mg PO HS [facility] Last Admin: 03/30/18 22:40 Dose: 80 mg Cinacalcet (Sensipar) 30 mg PO DAILY [facility] Last Admin: 03/31/18 10:10 Dose: 30 mg Clonidine HCl (Catapres) 0.1 mg PO TID [facility] Last Admin: 03/31/18 10:09 Dose: 0.1 mg Clopidogrel Bisulfate (Plavix) 75 mg PO DAILY [facility] Last Admin: 03/31/18 10:13 Dose: 75 mg Insulin Detemir (Levemir) 10 unit SC HS [facility] Last Admin: 03/30/18 22:42 Dose: 10 unit Insulin Human Regular (Humulin R Med) 0 units SC ACHS [facility] PRN Reason: Protocol Last Admin: 03/31/18 10:11 Dose: 1 units Labetalol HCl (Trandate) 100 mg PO Q12 [facility] Last Admin: 03/31/18 10:10 Dose: 100 mg Losartan Potassium (Cozaar) 50 mg PO DAILY [facility] Last Admin: 03/31/18 10:09 Dose: 50 mg Pantoprazole Sodium (Protonix Ec Tab) 40 mg PO 0600 [facility] Last Admin: 03/31/18 06:56 Dose: 40 mg Sevelamer HCl (Renagel) 1,600 mg PO TID [facility] Last Admin: 03/31/18 10:11 Dose: Not Given Vitamin B Complex/Vit C/Folic Acid (Nephro-Mila) 1 tab PO 0800 [facility] Last Admin: 03/31/18 10:10 Dose: 1 tab - Labs Labs: 03/31/18 07:00 03/31/18 06:30 PT 10.9 SECONDS (9.4-12.5) 03/28/18 11:35 INR 0.95 03/28/18 11:35 APTT 31.6 Seconds (25.1-36.5) 03/28/18 11:35 Assessment and Plan - Assessment and Plan (Free Text) Plan: Attestation: I examined the patient myself and found the neurological exam to be unchanged. Agree with the assessment and the plan that i assisted in formulating. Thank you Dr. newberry
[2018-03-29] MEDS: Pantoprazole 40 mg EC Tab PO SCH (06:13)
[2018-03-29 07:29] LABS: BASO # 0.06 K/mm3 (0.0-2.0); BASO % 1.3 % (0.0-3.0); EOS # 0.5 (0.0-0.7); EOS % 10.2 % (1.5-5.0); GRAN # 2.01 (1.4-6.5); GRAN % 43.7 % (50.0-68.0); HEMOGLOBIN 12.4 g/dL (12.0-16.0); LYMPH # 1.8 (1.2-3.4); LYMPH % 38.3 % (22.0-35.0); MEAN CELL VOLUME 86.9 fl (80.0-105.0); MEAN CORPUSCULAR HGB CONC 33.4 g/dl (31.0-37.0); MEAN PLATELET VOLUME 11.1 fl (7.0-11.0); MONO # 0.3 (0.1-0.6); MONO % 6.5 % (1.0-6.0); RBC 4.27 10^6/uL (3.5-6.1); RED CELL DISTRIBUTION WIDTH 15.8 % (11.5-14.5); WHITE BLOOD COUNT 4.6 10^3/ul (4.5-11.0)
[2018-03-29 07:53] LABS: ALB/GLOB RATIO 1.4 (1.1-1.8); ALBUMIN 4.3 g/dL (3.0-4.8); CALCIUM 8.5 mg/dL (8.4-10.5)
[2018-03-29] MEDS: Insulin Reg-MEDIUM-Coverage SC SCH ×4 (08:13→21:43)
--- NOTE | 2018-03-29 10:03 | CP.PCM.PN ---
<Gordy Tate - Last Filed: 03/29/18 13:40> Subjective - Date & Time of Evaluation Date of Evaluation: 03/29/18 Time of Evaluation: 06:10 - Subjective Subjective: Patient seen and examined at bedside. No significant overnight events. Patent states that her lower extremity weakness is improving on left side but still the same on the right side. She does not ambulate out of bed and waiting for PT to evaluate her. She denied chest pain, SOB, palpitation, fever, N/V/D, headache, dizziness, blurry vision. Objective - Vital Signs/Intake and Output Vital Signs (last 24 hours): Temp Pulse Resp BP Pulse Ox 98 F 82 20 193/89 H 100 03/29/18 05:51 03/29/18 05:51 03/29/18 05:51 03/29/18 05:51 03/28/18 18:12 Intake and Output: 03/29/18 03/29/18 06:59 18:59 Intake Total 720 Balance 720 - Medications Medications: Current Medications Amlodipine Besylate (Norvasc) 10 mg PO DAILY [facility] Last Admin: 03/28/18 19:15 Dose: Not Given Aspirin (Ecotrin) 81 mg PO DAILY [facility] Atorvastatin Calcium (Lipitor) 80 mg PO HS [facility] Last Admin: 03/28/18 22:16 Dose: 80 mg Cinacalcet (Sensipar) 30 mg PO DAILY [facility] Clonidine HCl (Catapres) 0.1 mg PO TID [facility] Clopidogrel Bisulfate (Plavix) 75 mg PO DAILY [facility] Insulin Human Regular (Humulin R Med) 0 units SC ACHS [facility] PRN Reason: Protocol Last Admin: 03/29/18 08:13 Dose: 3 units Labetalol HCl (Trandate) 100 mg PO Q12 [facility] Last Admin: 03/28/18 22:16 Dose: 100 mg Multivitamins/Minerals (Therapeutic-M Tab) 1 tab PO DAILY [facility] Pantoprazole Sodium (Protonix Ec Tab) 40 mg PO 0600 [facility] Last Admin: 03/29/18 06:13 Dose: 40 mg - Labs Labs: 03/29/18 06:30 03/29/18 06:30 PT 10.9 SECONDS (9.4-12.5) 03/28/18 11:35 INR 0.95 03/28/18 11:35 APTT 31.6 Seconds (25.1-36.5) 03/28/18 11:35 - Constitutional Appears: Well - Head Exam Head Exam: ATRAUMATIC, NORMAL INSPECTION, NORMOCEPHALIC - Eye Exam Eye Exam: EOMI, Normal appearance, PERRL - ENT Exam ENT Exam: Mucous Membranes Moist, Normal Exam - Neck Exam Neck Exam: Full ROM, Normal Inspection. absent: Lymphadenopathy - Respiratory Exam Respiratory Exam: Clear to Ausculation Bilateral, NORMAL BREATHING PATTERN - Cardiovascular Exam Cardiovascular Exam: REGULAR RHYTHM, +S1, +S2. absent: Murmur - GI/Abdominal Exam GI & Abdominal Exam: Soft, Normal Bowel Sounds. absent: Tenderness - Rectal Exam Rectal Exam: Deferred - Extremities Exam Extremities Exam: Full ROM, Normal Capillary Refill, Normal Inspection. absent : Joint Swelling, Pedal Edema - Back Exam Back Exam: NORMAL INSPECTION - Neurological Exam Neurological Exam: Alert, Awake, CN II-XII Intact, Motor Sensory Deficit (5/5 muscle strength left LE. 4/5 muscle strength right LE), Normal Gait, Oriented x3 - Psychiatric Exam Psychiatric exam: Normal Affect, Normal Mood - Skin Skin Exam: Dry, Intact, Normal Color, Warm Assessment and Plan - Assessment and Plan (Free Text) Assessment: 52 y/o female PMHx of ESRD on HD (MWF), GERD, HTN, DM, CVA, TIA dyslipidemia presents to the ED with bilateral lower extremities weakness for 2 days . Her blood pressure is consistently high despite taking her BP meds Plan: Bilateral lower extremity weakness -Patient has 5/5 muscle strength left LE. 4/5 muscle strength right LE, on physical exam today -CT head : shows no acute strokes. chronic lacunar infarcts -Neuo consulted Dr Magana: perception of generalized leg weakness, but no neurological indication of weakness. -MRI brain: There is a small acute infarct left posterolateral thalamus -As per consult, permissive HTN until 12 noon today, treat blood pressure above 220/110 mmHG. Blood pressure control after 12 nn, -Echocardiogram, carotid doppler, hypercoagulability study -ST eval and treat -keep head of bed elevated at least 30 degrees ESRD on HD: - Patient on HD M// - As per Nephro consulted Dr Dimitri Churchill: continue sensipar, will start renagel for phos, takes velphoro at home, will resume nephrocap. HD Friday. HgB ok no need for SANDEEP - Renal diet. Low potassium HTN -Uncontrolled BP despite patient's compliance with meds -Admitted to the telemetry unit for blood pressure management -Resume home meds amlodipine 10 -Continue home med Clonidine 0.1mg TID -Continue home med Labetalol 100 mg BID -Continue home med asa 81, plavix 75, lipitor 80 -can resume home med hydralazine 100 TID, depending on neuro BP goal -Vital signs q4hr DM2 -HgA1c -ISS-medium -Accu-check -neuro check -Fall precations -Aspiration precaution -PT eval/treat -GI ppx Pantoprazole -DVT ppx SCD <Lexi Connors - Last Filed: 03/30/18 18:19> Objective - Vital Signs/Intake and Output Vital Signs (last 24 hours): Temp Pulse Resp BP Pulse Ox 99 F 72 18 179/78 H 100 03/30/18 12:00 03/30/18 12:00 03/30/18 12:00 03/30/18 12:00 03/30/18 06:00 - Medications Medications: Current Medications Amlodipine Besylate (Norvasc) 10 mg PO DAILY [facility] Last Admin: 03/30/18 17:47 Dose: Not Given Aspirin (Ecotrin) 81 mg PO DAILY [facility] Last Admin: 03/29/18 10:05 Dose: 81 mg Atorvastatin Calcium (Lipitor) 80 mg PO HS [facility] Last Admin: 03/29/18 21:25 Dose: 80 mg Cinacalcet (Sensipar) 30 mg PO DAILY [facility] Last Admin: 03/30/18 17:46 Dose: Not Given Clonidine HCl (Catapres) 0.1 mg PO TID [facility] Last Admin: 03/30/18 17:46 Dose: Not Given Clopidogrel Bisulfate (Plavix) 75 mg PO DAILY [facility] Last Admin: 03/29/18 10:05 Dose: 75 mg Insulin Human Regular (Humulin R Med) 0 units SC [facility] PRN Reason: Protocol Last Admin: 03/30/18 17:46 Dose: Not Given Labetalol HCl (Trandate) 100 mg PO Q12 [facility] Last Admin: 03/30/18 17:47 Dose: Not Given Losartan Potassium (Cozaar) 50 mg PO DAILY [facility] Pantoprazole Sodium (Protonix Ec Tab) 40 mg PO 0600 [facility] Last Admin: 03/30/18 05:56 Dose: 40 mg Sevelamer HCl (Renagel) 1,600 mg PO TID [facility] Last Admin: 03/30/18 17:46 Dose: Not Given Vitamin B Complex/Vit C/Folic Acid (Nephro-Mila) 1 tab PO 0800 [facility] Last Admin: 03/30/18 17:46 Dose: Not Given - Labs Labs: 03/30/18 11:20 03/30/18 11:20 PT 10.9 SECONDS (9.4-12.5) 03/28/18 11:35 INR 0.95 03/28/18 11:35 APTT 31.6 Seconds (25.1-36.5) 03/28/18 11:35 Attending/Attestation - Attestation I have personally seen and examined this patient.: Yes I have fully participated in the care of the patient.: Yes I have reviewed all pertinent clinical information, including history, physical exam and plan: Yes Notes (Text): 03/30/18 18:16 Attending note; Patient seen and examined with resident. Patient is alert and awake. Still complaining of bilateral leg weakness right greater than the left. Patient is a 52 year old female with PMHx of ESRD on HD (MWF), GERD, HTN, DM, CVA, TIA dyslipidemia presents to the ED with bilateral lower extremities weakness for 2 days. The patient was found to have elevated blood pressure in the ER. CT head is negative for acute stroke. MRI showed small acute left thalamic infarct. Patient passed the swallow eval. Continue aspirin and Plavix. End-stage renal disease on dialysis; nephrology evaluation appreciated. Plan for hemodialysis on Friday via right arm AV graft. Hypertension; blood pressure is improving. Started on clonidine, labetalol and Norvasc. Monitor blood pressure closely. Neurology evaluation appreciated . Carotid Doppler, echocardiogram ordered. PT evaluation requested. Upon discharge the patient will follow-up with PMD Dr. Mcgowan.
[2018-03-29] MEDS: Multivitamin With Minerals Tab PO SCH (10:25)
--- NOTE | 2018-03-29 11:24 | CARD ---
APPROVED REPORT Date of service: 03/28/2018 EKG Measurement Heart [id number] <Conclusion> Normal sinus rhythm Septal infarct, age undetermined T wave abnormality, consider lateral ischemia Prolonged QT Abnormal ECG
[2018-03-29 12:59] LABS: FOLATE > 20.0 ng/mL
--- NOTE | 2018-03-29 13:03 | CP.PCM.CON ---
History of Present Illness - History of Present Illness History of Present Illness: RENAL CONSULT 52 y/o female PMHx of ESRD on HD (MWF), CVA, HTN, DM that presented w/ wweakness. SHe states that she had some sort of negative verbal interaction w/ another pt at her HD unit on Friday and came home to rest after dialysis. She needed some assistance she states with ambulation from her transportation company that evening and when she awoke still felt weak w/ difficulty walking. She came for further evaluation. She also states that she is normally on clonidine but ran out of it about 1-2 weeks ago she wasnt clear exactly what date. She had been trying to get in touch w/ cardiology re: this she states. She is being worked up for CVA. A full detailed ros is otherwise negative except as above PMH: ESRD MWF, DM, HTN, CVA, CAD SH: no active etoh ivdu or smoking FH: brother dm all: as below pe: VS as below GEN: nad sclera: anicteric op: clear neck: Supple No thyromegaly cv: +s1+s2 no rub lungs: cta b/l abd: soft ntnd no organomegaly ext: no edema neuro: a+ox3 follows command no appreciable focal defecit psych: nml affect skin no rash labs and imaging reviewed IMP: ESRD/ Hypertensive kidney disease/ CVA/ Anemia of renal disease/ Secondary hyperparathyroidism/hyperphosphatemia plan: HD tomorrow Resume home bp meds w/ goal BP as per neurology, was also taking hydralazine 100 mg tid at home she stated, can resume hydral depending on neuro bp goal hgb ok no need for SANDEEP continue sensipar will start renagel for phos, takes velphoro at home will resume nephrocap Past Patient History - Tetanus Immunizations Tetanus Immunization: Unknown - Past Medical History & Family History Past Medical History?: Yes - Past Social History Smoking Status: Former Smoker - CARDIAC Hx Cardiac Disorders: Yes Hx Hypercholesterolemia: Yes Hx Peripheral Vascular Disease: Yes - PULMONARY Hx Respiratory Disorders: Yes (USED TO SMOKE CIGARETTES . 6-8 CIG A DAY. QUIT 2002) Hx Chronic Obstructive Pulmonary Disease (COPD): Yes Hx Emphysema: Yes Hx Sleep Apnea: Yes (IS NOT USING HER CPAP) - NEUROLOGICAL Hx Neurological Disorder: Yes (CEREBRAL INFARCT 03-28-18) HX Cerebrovascular Accident: Yes Hx Transient Ischemic Attacks (TIA): Yes - HEENT Hx HEENT Problems: Yes - RENAL Hx Chronic Kidney Disease: Yes Hx Dialysis: Yes ([facility]) Date of Last Dialysis Treatment: 03/27/18 - ENDOCRINE/METABOLIC Hx Endocrine Disorders: Yes Hx Diabetes Mellitus Type 2: Yes - HEMATOLOGICAL/ONCOLOGICAL Hx Blood Disorders: No - INTEGUMENTARY Hx Dermatological Problems: No (R ARM SHUNT WITH STRONG BRUIT) - MUSCULOSKELETAL/RHEUMATOLOGICAL Hx Musculoskeletal Disorders: Yes Hx Falls: Yes Hx Unsteady Gait: Yes - GASTROINTESTINAL Hx Gastrointestinal Disorders: Yes Hx Gastroesophageal Reflux: Yes Other/Comment: Gastroparesis - GENITOURINARY/GYNECOLOGICAL Hx Genitourinary Disorders: Yes (ANURIC) - PSYCHIATRIC Hx Psychophysiologic Disorder: Yes Hx Anxiety: Yes Hx Depression: Yes Hx Substance Use: No - SURGICAL HISTORY Hx Surgeries: Yes (RIGHT CHEST UDALL IN/OUT,FISTULA RIGHT ARM.) Hx Coronary Stent: Yes (X4) - ANESTHESIA Hx Anesthesia: Yes Hx Anesthesia Reactions: No Meds Allergies/Adverse Reactions: Allergies Allergy/AdvReac Type Severity Reaction Status Date / Time levofloxacin [From Levaquin] Allergy RASH Verified 03/28/18 18:14 Penicillins Allergy RASH Verified 03/28/18 18:14 acetaminophen AdvReac NAUSEA Verified 03/28/18 18:14 [From Tylenol PM] diphenhydramine HCl AdvReac NAUSEA Verified 03/28/18 18:14 [From Tylenol PM] gabapentin AdvReac NAUSEA Verified 03/28/18 18:14 heparin AdvReac NAUSEA Verified 03/28/18 18:14 Shellfish Allergy SWELLING Uncoded 03/28/18 18:14 - Medications Medications: Current Medications Amlodipine Besylate (Norvasc) 10 mg PO DAILY [facility] Last Admin: 03/29/18 10:05 Dose: 10 mg Aspirin (Ecotrin) 81 mg PO DAILY [facility] Last Admin: 03/29/18 10:05 Dose: 81 mg Atorvastatin Calcium (Lipitor) 80 mg PO HS [facility] Last Admin: 03/28/18 22:16 Dose: 80 mg Cinacalcet (Sensipar) 30 mg PO DAILY [facility] Last Admin: 03/29/18 10:26 Dose: 30 mg Clonidine HCl (Catapres) 0.1 mg PO TID [facility] Last Admin: 03/29/18 10:25 Dose: 0.1 mg Clopidogrel Bisulfate (Plavix) 75 mg PO DAILY [facility] Last Admin: 03/29/18 10:05 Dose: 75 mg Insulin Human Regular (Humulin R Med) 0 units SC ACHS [facility] PRN Reason: Protocol Last Admin: 03/29/18 12:19 Dose: 3 units Labetalol HCl (Trandate) 100 mg PO Q12 [facility] Last Admin: 03/29/18 10:05 Dose: 100 mg Multivitamins/Minerals (Therapeutic-M Tab) 1 tab PO DAILY [facility] Last Admin: 03/29/18 10:25 Dose: 1 tab Pantoprazole Sodium (Protonix Ec Tab) 40 mg PO 0600 [facility] Last Admin: 03/29/18 06:13 Dose: 40 mg Results - Vital Signs Recent Vital Signs: Last Vital Signs Temp 98 F 03/29/18 05:51 Pulse 82 03/29/18 10:25 Resp 20 03/29/18 05:51 BP 193/89 H 03/29/18 10:25 Pulse Ox 100 03/28/18 18:12 - Labs Result Diagrams: 03/29/18 06:30 03/29/18 06:30 Labs: Laboratory Results - last 24 hr 03/29/18 03/29/18 03/29/18 06:30 06:30 06:30 WBC 4.6 D RBC 4.27 Hgb 12.4 Hct 37.1 MCV 86.9 MCH 29.0 MCHC 33.4 RDW 15.8 H Plt Count 197 MPV 11.1 H Gran % 43.7 L Lymph % (Auto) 38.3 H [place] % (Auto) 6.5 H Eos % (Auto) 10.2 H Baso % (Auto) 1.3 Gran # 2.01 Lymph # (Auto) 1.8 [place] # (Auto) 0.3 Eos # (Auto) 0.5 Baso # (Auto) 0.06 ESR 20 Sodium 140 Potassium 5.1 H Chloride 95 L Carbon Dioxide 27 Anion Gap 23 H BUN 52 H Creatinine 10.8 H* Est GFR ( Amer) 5 Est GFR (Non-Af Amer) 4 Random Glucose 206 H Calcium 8.5 Phosphorus 6.4 H Magnesium 2.4 H Total Bilirubin 0.9 AST 22 ALT 22 Alkaline Phosphatase 205 H C-React Prot High Sens 2.34 Total Protein 7.6 Albumin 4.3 Globulin 3.2 Albumin/Globulin Ratio 1.4 25-OH Vitamin D Total 03/29/18 06:30 WBC RBC Hgb Hct MCV MCH MCHC RDW Plt Count MPV Gran % Lymph % (Auto) [place] % (Auto) Eos % (Auto) Baso % (Auto) Gran # Lymph # (Auto) [place] # (Auto) Eos # (Auto) Baso # (Auto) ESR Sodium Potassium Chloride Carbon Dioxide Anion Gap BUN Creatinine Est GFR ( Amer) Est GFR (Non-Af Amer) Random Glucose Calcium Phosphorus Magnesium Total Bilirubin AST ALT Alkaline Phosphatase C-React Prot High Sens Total Protein Albumin Globulin Albumin/Globulin Ratio 25-OH Vitamin D Total 34.6
--- NOTE | 2018-03-29 20:00 | US ---
PROCEDURE: Bilateral carotid artery duplex ultrasound HISTORY: Carotid stenosis PHYSICIAN(S): Chester Espinoza MD. TECHNIQUE: Duplex sonography and color-flow Doppler were used to evaluate the carotid bifurcations and limited segments of the vertebral arteries bilaterally. FINDINGS: There is mild smooth heterogeneous plaque noted at the carotid bifurcations bilaterally. The peak systolic velocity in the proximal right internal carotid artery is 69 cm/sec. This corresponds to a 20 to 39% proximal right ICA stenosis. Normal systolic velocities are noted in the proximal right external carotid artery. There is antegrade flow in the right vertebral artery. The peak systolic velocity in the proximal left internal carotid artery is 62 cm/sec. This corresponds to a 20 to 39% proximal left ICA stenosis. Normal systolic velocities are noted in the proximal left external carotid artery. There is antegrade flow in the left vertebral artery. IMPRESSION: 1. Bilateral 20-39% proximal ICA stenoses. 2. Antegrade flow in both vertebral arteries.
[2018-03-30 01:23] VITALS: O2SAT 100
[2018-03-30] MEDS: Pantoprazole 40 mg EC Tab PO SCH (05:56)
--- NOTE | 2018-03-30 06:18 | CP.PCM.PN ---
<Gordy Tate - Last Filed: 03/30/18 14:33> Subjective - Date & Time of Evaluation Date of Evaluation: 03/30/18 Time of Evaluation: 05:45 - Subjective Subjective: Patient seen and examined at bedside. No significant overnight events. Patent states that her lower extremity weakness is improving on left side but still the same on the right side. She does not ambulate out of bed and waiting for PT to evaluate her. She denied chest pain, SOB, palpitation, fever, N/V/D, headache , dizziness, blurry vision. No bowel movement since Friday. Objective - Vital Signs/Intake and Output Vital Signs (last 24 hours): Temp Pulse Resp BP Pulse Ox 98.6 F 73 18 127/61 100 03/30/18 00:01 03/30/18 00:01 03/30/18 00:01 03/30/18 00:01 03/30/18 00:01 Intake and Output: 03/29/18 03/30/18 18:59 06:59 Intake Total 840 Output Total 0 Balance 840 - Medications Medications: Current Medications Amlodipine Besylate (Norvasc) 10 mg PO DAILY [facility] Last Admin: 03/29/18 10:05 Dose: 10 mg Aspirin (Ecotrin) 81 mg PO DAILY [facility] Last Admin: 03/29/18 10:05 Dose: 81 mg Atorvastatin Calcium (Lipitor) 80 mg PO HS [facility] Last Admin: 03/29/18 21:25 Dose: 80 mg Cinacalcet (Sensipar) 30 mg PO DAILY [facility] Last Admin: 03/29/18 10:26 Dose: 30 mg Clonidine HCl (Catapres) 0.1 mg PO TID [facility] Last Admin: 03/29/18 17:04 Dose: 0.1 mg Clopidogrel Bisulfate (Plavix) 75 mg PO DAILY [facility] Last Admin: 03/29/18 10:05 Dose: 75 mg Insulin Human Regular (Humulin R Med) 0 units SC ACHS [facility] PRN Reason: Protocol Last Admin: 03/29/18 21:43 Dose: 2 units Labetalol HCl (Trandate) 100 mg PO Q12 [facility] Last Admin: 03/29/18 21:25 Dose: 100 mg Multivitamins/Minerals (Therapeutic-M Tab) 1 tab PO DAILY [facility] Last Admin: 03/29/18 10:25 Dose: 1 tab Pantoprazole Sodium (Protonix Ec Tab) 40 mg PO 0600 [facility] Last Admin: 03/30/18 05:56 Dose: 40 mg Sevelamer HCl (Renagel) 1,600 mg PO TID [facility] Last Admin: 03/29/18 13:16 Dose: Not Given Vitamin B Complex/Vit C/Folic Acid (Nephro-Mila) 1 tab PO 0800 [facility] - Labs Labs: 03/29/18 06:30 03/29/18 06:30 PT 10.9 SECONDS (9.4-12.5) 03/28/18 11:35 INR 0.95 03/28/18 11:35 APTT 31.6 Seconds (25.1-36.5) 03/28/18 11:35 - Constitutional Appears: Well, No Acute Distress - Head Exam Head Exam: ATRAUMATIC, NORMAL INSPECTION, NORMOCEPHALIC - Eye Exam Eye Exam: EOMI, Normal appearance, PERRL Pupil Exam: NORMAL ACCOMODATION, PERRL - Neck Exam Neck Exam: Full ROM, Normal Inspection. absent: Lymphadenopathy - Respiratory Exam Respiratory Exam: Clear to Ausculation Bilateral, NORMAL BREATHING PATTERN - Cardiovascular Exam Cardiovascular Exam: REGULAR RHYTHM, +S1, +S2. absent: Murmur - Rectal Exam Rectal Exam: Deferred - Extremities Exam Extremities Exam: Full ROM, Normal Capillary Refill, Normal Inspection. absent : Calf Tenderness, Joint Swelling, Pedal Edema, Tenderness Additional comments: 5/5 muscle strength left LE. 4/5 muscle strength right LE 5/5 muscle strength both UE no sensory deficits dialysis graft on right forearm, clean, no signs of infection, bruit heard. - Back Exam Back Exam: NORMAL INSPECTION - Neurological Exam Neurological Exam: Alert, Awake, CN II-XII Intact, Oriented x3 - Psychiatric Exam Psychiatric exam: Normal Affect, Normal Mood - Skin Skin Exam: Dry, Intact, Normal Color, Warm Assessment and Plan - Assessment and Plan (Free Text) Assessment: 52 y/o female PMHx of ESRD on HD (MWF), GERD, HTN, DM, CVA, TIA, dyslipidemia presents to the ED with bilateral lower extremities weakness for 2 days . MRI brain showed a small acute infarct left posterolateral thalamus. Plan: Bilateral lower extremity weakness in the setting of acute left thalamic stroke -Patient has 5/5 muscle strength left LE. 4/5 muscle strength right LE, on physical exam today -MRI brain: There is a small acute infarct left posterolateral thalamus -CT head : shows no acute strokes. chronic lacunar infarcts -Carotid doppler: b/l 20-39% proximal ICA stenosis -MRI lumbar spine: no acute fractures, no retropulsed fragments -Tomas consulted Dr Magana -Echocardiogram: read pending -PT/PTT/INR 10.9/31.6/0.95 -ST eval and treat. pending -keep head of bed elevated at least 30 degrees ESRD on HD: - Patient on HD M/W/F - Going for HD today - As per Nephro consulted Dr Dimitri Churchill: continue sensipar, will start renagel for phos, takes velphoro at home, will resume nephrocap. HgB ok no need for SANDEEP - Renal diet. Low potassium HTN -BP 127/61 -Uncontrolled BP despite patient's compliance with meds as an outpatient -Admitted to the telemetry unit for blood pressure management -Resume home meds amlodipine 10 -Continue home med Clonidine 0.1mg TID -Continue home med Labetalol 100 mg BID -Continue home med asa 81, plavix 75, lipitor 80 -can resume home med hydralazine 100 TID, depending on neuro BP goal -Vital signs q4hr DM2 -HgA1c 8.5 -ISS-medium -Accu-check -Regular diet -neuro check -Fall precations -Aspiration precaution -PT eval/treat for MARILU -GI ppx Pantoprazole -DVT ppx SCD Case reviewed and discussed with Dr Connors <Lexi Connors - Last Filed: 03/30/18 18:24> Objective - Vital Signs/Intake and Output Vital Signs (last 24 hours): Temp Pulse Resp BP Pulse Ox 99 F 82 18 179/78 H 100 03/30/18 12:00 03/30/18 18:00 03/30/18 12:00 03/30/18 12:00 03/30/18 06:00 - Medications Medications: Current Medications Amlodipine Besylate (Norvasc) 10 mg PO DAILY [facility] Last Admin: 03/30/18 17:47 Dose: Not Given Aspirin (Ecotrin) 81 mg PO DAILY [facility] Last Admin: 03/29/18 10:05 Dose: 81 mg Atorvastatin Calcium (Lipitor) 80 mg PO [facility] Last Admin: 03/29/18 21:25 Dose: 80 mg Cinacalcet (Sensipar) 30 mg PO DAILY [facility] Last Admin: 03/30/18 17:46 Dose: Not Given Clonidine HCl (Catapres) 0.1 mg PO TID [facility] Last Admin: 03/30/18 17:46 Dose: Not Given Clopidogrel Bisulfate (Plavix) 75 mg PO DAILY [facility] Last Admin: 03/29/18 10:05 Dose: 75 mg Insulin Human Regular (Humulin R Med) 0 units SC ACHS [facility] PRN Reason: Protocol Last Admin: 03/30/18 17:46 Dose: Not Given Labetalol HCl (Trandate) 100 mg PO Q12 [facility] Last Admin: 03/30/18 17:47 Dose: Not Given Losartan Potassium (Cozaar) 50 mg PO DAILY [facility] Pantoprazole Sodium (Protonix Ec Tab) 40 mg PO 0600 [facility] Last Admin: 03/30/18 05:56 Dose: 40 mg Sevelamer HCl (Renagel) 1,600 mg PO TID [facility] Last Admin: 03/30/18 17:46 Dose: Not Given Vitamin B Complex/Vit C/Folic Acid (Nephro-Mila) 1 tab PO 0800 [facility] Last Admin: 03/30/18 17:46 Dose: Not Given - Labs Labs: 03/30/18 11:20 03/30/18 11:20 PT 10.9 SECONDS (9.4-12.5) 03/28/18 11:35 INR 0.95 03/28/18 11:35 APTT 31.6 Seconds (25.1-36.5) 03/28/18 11:35 Attending/Attestation - Attestation I have personally seen and examined this patient.: Yes I have fully participated in the care of the patient.: Yes I have reviewed all pertinent clinical information, including history, physical exam and plan: Yes Notes (Text): 03/30/18 18:20 Attending note; Patient seen and examined with resident. Patient is alert and awake. Leg weakness is improving. Patient is a 52 year old female with PMHx of ESRD on HD (MWF), GERD, HTN, DM, CVA, TIA dyslipidemia presents to the ED with bilateral lower extremities weakness for [address] head is negative for acute stroke. MRI showed small acute left thalamic infarct. Continue aspirin and Plavix. End-stage renal disease on dialysis; nephrology evaluation appreciated. Plan for hemodialysis on Friday via right arm AV graft. Hypertension; blood pressure is improving. Started on clonidine, labetalol and Norvasc. Started on Cozaar. Diabetes; Levemir added. Continue regular insulin sliding scale . Dietary education given . Carotid Doppler without significant stenosis .echocardiogram pending . PT evaluation appreciated. Acute rehabilitation recommended. Will follow up with case resource manager/social science research assistant for discharge planning. Upon discharge the patient will follow-up with PMD Dr. Mcgowan. 03/30/18 18:22
[2018-03-30] MEDS: Insulin Reg-MEDIUM-Coverage SC SCH ×4 (08:04→22:42)
[2018-03-30 11:31] LABS: BASO # 0.08 K/mm3 (0.0-2.0); BASO % 1.6 % (0.0-3.0); EOS # 0.4 (0.0-0.7); EOS % 8.3 % (1.5-5.0); GRAN # 2.44 (1.4-6.5); GRAN % 49.5 % (50.0-68.0); HEMOGLOBIN 12.4 g/dL (12.0-16.0); LYMPH # 1.7 (1.2-3.4); LYMPH % 33.9 % (22.0-35.0); MEAN CELL VOLUME 86.1 fl (80.0-105.0); MEAN CORPUSCULAR HEMOGLOBIN 29.2 pg (25.0-35.0); MEAN PLATELET VOLUME 11.6 fl (7.0-11.0); MONO # 0.3 (0.1-0.6); MONO % 6.7 % (1.0-6.0); RBC 4.24 10^6/uL (3.5-6.1); RED CELL DISTRIBUTION WIDTH 15.7 % (11.5-14.5); WHITE BLOOD COUNT 4.9 10^3/ul (4.5-11.0)
--- NOTE | 2018-03-30 11:45 | CP.PCM.PN ---
Subjective - Date & Time of Evaluation Date of Evaluation: 03/30/18 Time of Evaluation: 09:44 - Subjective Subjective: Jose Alberto Ruffin PGY2 Neurology Progress Note for Dr. Magana Patient was seen and examined at bedside. There were no acute overnight events. Her symptoms are improving and she is pending PT eval. 12-pt ROS was reviewed and is otherwise unremarkable. Objective - Vital Signs/Intake and Output Vital Signs (last 24 hours): Temp Pulse Resp BP Pulse Ox 97.7 F 68 20 147/70 100 03/30/18 06:00 03/30/18 10:00 03/30/18 06:00 03/30/18 06:00 03/30/18 06:00 - Medications Medications: Current Medications Amlodipine Besylate (Norvasc) 10 mg PO DAILY [facility] Last Admin: 03/29/18 10:05 Dose: 10 mg Aspirin (Ecotrin) 81 mg PO DAILY [facility] Last Admin: 03/29/18 10:05 Dose: 81 mg Atorvastatin Calcium (Lipitor) 80 mg PO HS [facility] Last Admin: 03/29/18 21:25 Dose: 80 mg Cinacalcet (Sensipar) 30 mg PO DAILY [facility] Last Admin: 03/29/18 10:26 Dose: 30 mg Clonidine HCl (Catapres) 0.1 mg PO TID [facility] Last Admin: 03/29/18 17:04 Dose: 0.1 mg Clopidogrel Bisulfate (Plavix) 75 mg PO DAILY [facility] Last Admin: 03/29/18 10:05 Dose: 75 mg Insulin Human Regular (Humulin R Med) 0 units SC ACHS [facility] PRN Reason: Protocol Last Admin: 03/30/18 08:04 Dose: 3 units Labetalol HCl (Trandate) 100 mg PO Q12 [facility] Last Admin: 03/29/18 21:25 Dose: 100 mg Multivitamins/Minerals (Therapeutic-M Tab) 1 tab PO DAILY [facility] Last Admin: 03/29/18 10:25 Dose: 1 tab Pantoprazole Sodium (Protonix Ec Tab) 40 mg PO 0600 [facility] Last Admin: 03/30/18 05:56 Dose: 40 mg Sevelamer HCl (Renagel) 1,600 mg PO TID [facility] Last Admin: 03/29/18 18:00 Dose: Not Given Vitamin B Complex/Vit C/Folic Acid (Nephro-Mila) 1 tab PO 0800 [facility] - Labs Labs: 03/30/18 11:20 03/29/18 06:30 PT 10.9 SECONDS (9.4-12.5) 03/28/18 11:35 INR 0.95 03/28/18 11:35 APTT 31.6 Seconds (25.1-36.5) 03/28/18 11:35 - Additional Findings Additional findings: - Constitutional Appears: Well, No Acute Distress - Head Exam Head Exam: ATRAUMATIC, NORMAL INSPECTION, NORMOCEPHALIC - Eye Exam Eye Exam: EOMI, Normal appearance, PERRL Pupil Exam: NORMAL ACCOMODATION, PERRL - Neck Exam Neck Exam: Full ROM, Normal Inspection. absent: Lymphadenopathy - Respiratory Exam Respiratory Exam: Clear to Ausculation Bilateral, NORMAL BREATHING PATTERN - Cardiovascular Exam Cardiovascular Exam: REGULAR RHYTHM, +S1, +S2. absent: Murmur - Rectal Exam Rectal Exam: Deferred - Extremities Exam Extremities Exam: Full ROM, Normal Capillary Refill, Normal Inspection. absent : Calf Tenderness, Joint Swelling, Pedal Edema, Tenderness - Back Exam Back Exam: NORMAL INSPECTION - Neurological Exam Neurological Exam: Alert, Awake, CN II-XII Intact, Oriented x3 Additional comments: 5/5 muscle strength left LE. 4/5 muscle strength right LE 5/5 muscle strength both UE no sensory deficits - Psychiatric Exam Psychiatric exam: Normal Affect, Normal Mood - Skin Skin Exam: Dry, Intact, Normal Color, Warm Assessment and Plan - Assessment and Plan (Free Text) Assessment: 52 year old female with a PMH of ESRD on HD (MWF), GERD, HTN, DM, CVA, TIA, dyslipidemia presents to the ED with bilateral lower extremities weakness for 2 days. Acute thalamic stroke noted on imaging. Plan: - cont ASA/Plavix - cont Lipitor 80mg - Echo done, pending official report - patient to be dialyzed today - carotid US reviewed - PT eval pending - further recs per Dr. Magana Case was reviewed and discussed with attending, Dr. Chino Ruffin PGY2
[2018-03-30 12:00] LABS: ALB/GLOB RATIO 1.4 (1.1-1.8); ALBUMIN 4.8 g/dL (3.0-4.8); CALCIUM 8.3 mg/dL (8.4-10.5)
--- NOTE | 2018-03-30 15:53 | CP.PCM.PN ---
Subjective - Date & Time of Evaluation Date of Evaluation: 03/30/18 Time of Evaluation: 15:50 - Subjective Subjective: Nephrology Consultation Note Assessment: Stable Acute CVA Diabetic chronic Kidney Disease (E11.22) Hypertensive Chronic Kidney Disease (I12.0) End stage renal disease (N18.6) dependence on hemodialysis (Z99.2) (MWF) via AVF Anemia (D64.9), Hyperphosphatemia (E83.39), Secondary Hyperparathyroidism (E21.1 ), HTN (I12.0) Plan: Will plan for HD today as ordered. Continue with Nephrovite 1 tab/day. PRBC as needed for anemia. not on SANDEEP with dialysis as last Hb 12.4 Continue with phos binders, last phos level 6.4 Continue with sensipar BP control with meds as ordered. Patient not on RAAS yuliet hence added losartan 50 mg/day Glycemic control, Dialysis consistent diet Further work up/management as per primary team Dose meds/antibiotics (if needed) for ESRD status. Avoid fleets enema/magnesium based laxatives. neurology following Thanks for allowing me to participate in care of your patient. Will follow patient with you. Please call if any Qs Dr Con Tejada Office: [phone] Subjective: Noted events overnight. Patients feels okay. Denies chest pain, palpitation, shortness of breath, leg swelling. c/o leg weakness R>L. All other negative Physical Examination: seen on HD General Appearance: Comfortable, in no acute respiratory distress, co-operative . Vitals reviewed and noted as below Head; Atraumatic, normocephalic ENT: no ulcers no thrush. Tongue is midline. Oropharynx: no rash or ulcers. EYES: Pupils are equal, round and reactive to light accommodation. Eye muscles and extraocular movement intact. Sclera is anicteric. Neck; supple no lymphadenopathy, no thyromegaly or bruit Lungs: Normal respiratory rate/effort. Breath sounds bilateral equal and clear Heart: Normal rate. s1s2 normal. No rub or gallop. Extremities: no edema. No varicose veins Neurological: Patient is alert, awake and oriented to person, place and time. b/ l lower legs weakness R>L Skin: Warm and dry. Normal turgor. No rash. Palpitation: Normal elasticity for age Abdomen: Abdomen is soft. Bowel sounds +. There is no abdominal tenderness, no guarding/rigidity or organomegaly Psych: normal insight and normal affect/mood MSK: no joint tenderness or swelling. Digits and nails normal, no deformity : kidney or bladder not palpable Access: AVF Labs/imaging reviewed. Past medical history, past surgical history, family history, social history, allergy reviewed and noted as below Family Hx: no hx of CKD. Non contributory Objective - Vital Signs/Intake and Output Vital Signs (last 24 hours): Temp Pulse Resp BP Pulse Ox 99 F 72 18 179/78 H 100 03/30/18 12:00 03/30/18 12:00 03/30/18 12:00 03/30/18 12:00 03/30/18 06:00 - Medications Medications: Current Medications Amlodipine Besylate (Norvasc) 10 mg PO DAILY [facility] Last Admin: 03/29/18 10:05 Dose: 10 mg Aspirin (Ecotrin) 81 mg PO DAILY [facility] Last Admin: 03/29/18 10:05 Dose: 81 mg Atorvastatin Calcium (Lipitor) 80 mg PO HS [facility] Last Admin: 03/29/18 21:25 Dose: 80 mg Cinacalcet (Sensipar) 30 mg PO DAILY [facility] Last Admin: 03/29/18 10:26 Dose: 30 mg Clonidine HCl (Catapres) 0.1 mg PO TID [facility] Last Admin: 03/30/18 12:07 Dose: Not Given Clopidogrel Bisulfate (Plavix) 75 mg PO DAILY [facility] Last Admin: 03/29/18 10:05 Dose: 75 mg Insulin Human Regular (Humulin R Med) 0 units SC [facility] PRN Reason: Protocol Last Admin: 03/30/18 13:14 Dose: 3 units Labetalol HCl (Trandate) 100 mg PO Q12 [facility] Last Admin: 03/29/18 21:25 Dose: 100 mg Multivitamins/Minerals (Therapeutic-M Tab) 1 tab PO DAILY [facility] Last Admin: 03/29/18 10:25 Dose: 1 tab Pantoprazole Sodium (Protonix Ec Tab) 40 mg PO 0600 [facility] Last Admin: 03/30/18 05:56 Dose: 40 mg Sevelamer HCl (Renagel) 1,600 mg PO TID [facility] Last Admin: 08/20/18 12:07 Dose: Not Given Vitamin B Complex/Vit C/Folic Acid (Nephro-Mila) 1 tab PO 0800 [facility] - Labs Labs: 03/30/18 11:20 03/30/18 11:20 PT 10.9 SECONDS (9.4-12.5) 03/28/18 11:35 INR 0.95 03/28/18 11:35 APTT 31.6 Seconds (25.1-36.5) 03/28/18 11:35
[2018-03-30] MEDS: Multivitamin Vitamin B Complex (Nephro-Vite) Tab PO SCH (17:46)
[2018-03-30] MEDS: Multivitamin With Minerals Tab PO SCH (17:47)
--- NOTE | 2018-03-30 19:21 | CARD ---
APPROVED REPORT Date of service: 03/30/2018 EXAM: Two-dimensional and M-mode echocardiogram with Doppler and color Doppler. INDICATION CVA/TIA 2D DIMENSIONS Left Atrium (2D)5.0 (1.6-4.0cm)IVSd1.8 (0.7-1.1cm) LVDd4.2 (3.9-5.9cm)PWd1.6 (0.7-1.1cm) LVDs2.7 (2.5-4.0cm)FS (%) 35.2 % LVEF (%)65.0 (>50%) M-Mode DIMENSIONS Aortic Root2.60 (2.2-3.7cm)Aortic Cusp Exc.1.30 (1.5-2.0cm) Aortic Valve AoV Peak Jzkisozo151.0cm/Nadine Peak GR.10mmHg Mitral Valve MV E Djvegbsf081.0cm/sMV A Oafpnfys983.0cm/sMV [id number] E/A ratio0.7MVA (PHT)1.80cm2 TDI E/Lateral E'0.0E/Medial E'0.0 Tricuspid Valve TR Peak [id number]/sRAP [id number] Peak Gr.18mmHg [id number] LEFT VENTRICLE The left ventricle is normal size. There is moderate to severe concentric left ventricular hypertrophy. The left ventricular function is normal. The left ventricular ejection fraction is within the normal range. There is normal LV segmental wall motion. Transmitral Doppler flow pattern is Grade I-abnormal relaxation pattern. RIGHT VENTRICLE The right ventricle is normal size. There is normal right ventricular wall thickness. The right ventricular systolic function is normal. ATRIA The left atrium is mildly dilated. The right atrium size is normal. AORTIC VALVE The aortic valve is moderately thickened. There is trace subvalvular aortic stenosis. MITRAL VALVE The mitral valve is moderately thickened. Mitral annular calcification is moderate. Mitral regurgitation is mild to moderate. TRICUSPID VALVE The tricuspid valve is normal in structure. There is trace tricuspid regurgitation. GREAT VESSELS The aortic root displays severe sclerocalcific changes of the aortic <Conclusion> The left ventricle is normal size. There is moderate to severe concentric left ventricular hypertrophy. The left ventricular function is normal. The left ventricular ejection fraction is within the normal range. There is normal LV segmental wall motion. Transmitral Doppler flow pattern is Grade I-abnormal relaxation pattern. Mitral regurgitation is mild to moderate. The aortic root displays severe sclerocalcific changes of the aortic A small PFO can not be ruled out
[2018-03-30] MEDS ORDERED: Insulin Detemir 100 units/ml Vial (Levemir) SC SCH (22:00)
[2018-03-31 02:32] VITALS: RESP 20
--- NOTE | 2018-03-31 06:04 | CP.PCM.PN ---
Subjective - Date & Time of Evaluation Date of Evaluation: 03/31/18 Time of Evaluation: 05:35 Objective - Vital Signs/Intake and Output Vital Signs (last 24 hours): Temp Pulse Resp BP Pulse Ox 98.8 F 81 20 142/74 100 03/31/18 00:01 03/31/18 02:00 03/31/18 00:01 03/31/18 00:01 03/31/18 00:01 Intake and Output: 03/30/18 03/31/18 18:59 06:59 Intake Total 780 Output Total 0 Balance 780 - Medications Medications: Current Medications Amlodipine Besylate (Norvasc) 10 mg PO DAILY [facility] Last Admin: 03/30/18 17:47 Dose: Not Given Aspirin (Ecotrin) 81 mg PO DAILY [facility] Last Admin: 03/30/18 18:59 Dose: 81 mg Atorvastatin Calcium (Lipitor) 80 mg PO HS [facility] Last Admin: 03/30/18 22:40 Dose: 80 mg Cinacalcet (Sensipar) 30 mg PO DAILY [facility] Last Admin: 03/30/18 17:46 Dose: Not Given Clonidine HCl (Catapres) 0.1 mg PO TID [facility] Last Admin: 03/30/18 18:58 Dose: 0.1 mg Clopidogrel Bisulfate (Plavix) 75 mg PO DAILY [facility] Last Admin: 03/30/18 18:58 Dose: 75 mg Insulin Detemir (Levemir) 10 unit SC [facility] Last Admin: 03/30/18 22:42 Dose: 10 unit Insulin Human Regular (Humulin R Med) 0 units SC [facility] PRN Reason: Protocol Last Admin: 03/30/18 22:42 Dose: Not Given Labetalol HCl (Trandate) 100 mg PO Q12 [facility] Last Admin: 03/30/18 22:40 Dose: 100 mg Losartan Potassium (Cozaar) 50 mg PO DAILY [facility] Pantoprazole Sodium (Protonix Ec Tab) 40 mg PO 0600 [facility] Last Admin: 03/30/18 05:56 Dose: 40 mg Sevelamer HCl (Renagel) 1,600 mg PO TID [facility] Last Admin: 03/30/18 17:46 Dose: Not Given Vitamin B Complex/Vit C/Folic Acid (Nephro-Mila) 1 tab PO 0800 [facility] Last Admin: 03/30/18 17:46 Dose: Not Given - Labs Labs: 03/30/18 11:20 03/30/18 11:20 PT 10.9 SECONDS (9.4-12.5) 03/28/18 11:35 INR 0.95 03/28/18 11:35 APTT 31.6 Seconds (25.1-36.5) 03/28/18 11:35
[2018-03-31] MEDS: Pantoprazole 40 mg EC Tab PO SCH (06:56)
[2018-03-31 07:45] LABS: BASO # 0.05 K/mm3 (0.0-2.0); BASO % 1.1 % (0.0-3.0); EOS # 0.4 (0.0-0.7); EOS % 8.9 % (1.5-5.0); GRAN # 2.04 (1.4-6.5); GRAN % 46.5 % (50.0-68.0); HEMOGLOBIN 11.7 g/dL (12.0-16.0); LYMPH # 1.7 (1.2-3.4); LYMPH % 37.6 % (22.0-35.0); MEAN CORPUSCULAR HEMOGLOBIN 28.2 pg (25.0-35.0); MEAN CORPUSCULAR HGB CONC 32.8 g/dl (31.0-37.0); MEAN PLATELET VOLUME 11.7 fl (7.0-11.0); MONO # 0.3 (0.1-0.6); MONO % 5.9 % (1.0-6.0); RBC 4.15 10^6/uL (3.5-6.1); RED CELL DISTRIBUTION WIDTH 15.5 % (11.5-14.5); WHITE BLOOD COUNT 4.4 10^3/ul (4.5-11.0)
[2018-03-31 08:06] LABS: ALB/GLOB RATIO 1.3 (1.1-1.8); ALBUMIN 4.3 g/dL (3.0-4.8); CALCIUM 8.5 mg/dL (8.4-10.5)
--- NOTE | 2018-03-31 09:53 | CP.PCM.PN ---
Subjective - Date & Time of Evaluation Date of Evaluation: 03/31/18 Time of Evaluation: 08:47 - Subjective Subjective: Jose Alberto Ruffin PGY2 Neurology Progress Note for Dr. Magana Patient was seen and examined at bedside. There were no acute overnight events. Her symptoms are improving and PT eval recommending acute rehab, pending placement. She states that she was tolerated the therapy very well, and was able to ambulate with minimal assistance with me. 12-pt ROS was reviewed and is otherwise unremarkable. Objective - Vital Signs/Intake and Output Vital Signs (last 24 hours): Temp Pulse Resp BP Pulse Ox 97.8 F 76 20 151/76 H 100 03/31/18 06:00 03/31/18 06:00 03/31/18 06:00 03/31/18 06:00 03/31/18 06:00 Intake and Output: 03/31/18 03/31/18 06:59 18:59 Intake Total 180 Output Total 0 Balance 180 - Medications Medications: Current Medications Amlodipine Besylate (Norvasc) 10 mg PO DAILY [facility] Last Admin: 03/30/18 17:47 Dose: Not Given Aspirin (Ecotrin) 81 mg PO DAILY [facility] Last Admin: 03/30/18 18:59 Dose: 81 mg Atorvastatin Calcium (Lipitor) 80 mg PO HS [facility] Last Admin: 03/30/18 22:40 Dose: 80 mg Cinacalcet (Sensipar) 30 mg PO DAILY [facility] Last Admin: 03/30/18 17:46 Dose: Not Given Clonidine HCl (Catapres) 0.1 mg PO TID [facility] Last Admin: 03/30/18 18:58 Dose: 0.1 mg Clopidogrel Bisulfate (Plavix) 75 mg PO DAILY [facility] Last Admin: 03/30/18 18:58 Dose: 75 mg Insulin Detemir (Levemir) 10 unit SC HS [facility] Last Admin: 03/30/18 22:42 Dose: 10 unit Insulin Human Regular (Humulin R Med) 0 units SC [facility] PRN Reason: Protocol Last Admin: 03/30/18 22:42 Dose: Not Given Labetalol HCl (Trandate) 100 mg PO Q12 [facility] Last Admin: 03/30/18 22:40 Dose: 100 mg Losartan Potassium (Cozaar) 50 mg PO DAILY [facility] Pantoprazole Sodium (Protonix Ec Tab) 40 mg PO 0600 [facility] Last Admin: 08/21/18 06:56 Dose: 40 mg Sevelamer HCl (Renagel) 1,600 mg PO TID [facility] Last Admin: 03/30/18 17:46 Dose: Not Given Vitamin B Complex/Vit C/Folic Acid (Nephro-Mila) 1 tab PO 0800 [facility] Last Admin: 03/30/18 17:46 Dose: Not Given - Labs Labs: 03/31/18 07:00 03/31/18 06:30 PT 10.9 SECONDS (9.4-12.5) 03/28/18 11:35 INR 0.95 03/28/18 11:35 APTT 31.6 Seconds (25.1-36.5) 03/28/18 11:35 - Additional Findings Additional findings: - Constitutional Appears: Well, No Acute Distress - Head Exam Head Exam: ATRAUMATIC, NORMAL INSPECTION, NORMOCEPHALIC - Eye Exam Eye Exam: EOMI, Normal appearance, PERRL Pupil Exam: NORMAL ACCOMODATION, PERRL - Neck Exam Neck Exam: Full ROM, Normal Inspection. absent: Lymphadenopathy - Respiratory Exam Respiratory Exam: Clear to Ausculation Bilateral, NORMAL BREATHING PATTERN - Cardiovascular Exam Cardiovascular Exam: REGULAR RHYTHM, +S1, +S2. absent: Murmur - Rectal Exam Rectal Exam: Deferred - Extremities Exam Extremities Exam: Full ROM (limited hip flexion RLE due to pain, likely arthritic), Normal Capillary Refill, Normal Inspection. absent: Calf Tenderness , Joint Swelling, Pedal Edema, Tenderness - Back Exam Back Exam: NORMAL INSPECTION - Neurological Exam Neurological Exam: Alert, Awake, CN II-XII Intact, Oriented x3 Additional comments: 5/5 muscle strength b/l LE 5/5 muscle strength b/l UE no sensory deficits - Psychiatric Exam Psychiatric exam: Normal Affect, Normal Mood - Skin Skin Exam: Dry, Intact, Normal Color, Warm Assessment and Plan - Assessment and Plan (Free Text) Assessment: 52 year old female with a PMH of ESRD on HD (MWF), CVA, DM2, peripheral neuropathy, arthritis, GERD, HTN, and HLD presents to the ED with bilateral lower extremities weakness for 2 days. Acute thalamic stroke noted on imaging. Plan: - cont ASA/Plavix - cont Lipitor 80mg - Echo, carotid US and Lumbar MRI reviewed - PT eval recommending acute rehab, pending placement - further recs per Dr. Magana Case was reviewed and discussed with attending, Dr. Chino Ruffin PGY2
[2018-03-31] MEDS: Multivitamin Vitamin B Complex (Nephro-Vite) Tab PO SCH (10:10)
[2018-03-31] MEDS: Insulin Reg-MEDIUM-Coverage SC SCH ×2 (10:11→13:34)
[2018-03-31 11:56] VITALS: PULSE 71; TEMP 98.3
--- NOTE | 2018-03-31 12:55 | CP.PCM.DIS ---
<ParveenGordy morales - Last Filed: 03/31/18 20:58> Provider - Provider Date of Admission: 03/28/18 15:10 Attending physician: Lexi Connors MD Primary care physician: Dr Mcgowan Consults: Neurology Nephrology Time Spent in preparation of Discharge (in minutes): 45 Hospital Course - Lab Results Lab Results: Most Recent Lab Values WBC 4.4 10^3/ul (4.5-11.0) L 03/31/18 07:00 RBC 4.15 10^6/uL (3.5-6.1) 03/31/18 07:00 Hgb 11.7 g/dL (12.0-16.0) L 03/31/18 07:00 Hct 35.7 % (36.0-48.0) L 03/31/18 07:00 MCV 86.0 fl (80.0-105.0) 03/31/18 07:00 MCH 28.2 pg (25.0-35.0) 03/31/18 07:00 MCHC 32.8 g/dl (31.0-37.0) 03/31/18 07:00 RDW 15.5 % (11.5-14.5) H 03/31/18 07:00 Plt Count 183 10^3/uL (120.0-450.0) 03/31/18 07:00 MPV 11.7 fl (7.0-11.0) H 03/31/18 07:00 Gran % 46.5 % (50.0-68.0) L 03/31/18 07:00 Lymph % (Auto) 37.6 % (22.0-35.0) H 03/31/18 07:00 [place] % (Auto) 5.9 % (1.0-6.0) 03/31/18 07:00 Eos % (Auto) 8.9 % (1.5-5.0) H 03/31/18 07:00 Baso % (Auto) 1.1 % (0.0-3.0) 03/31/18 07:00 Gran # 2.04 (1.4-6.5) 03/31/18 07:00 Lymph # (Auto) 1.7 (1.2-3.4) 03/31/18 07:00 [place] # (Auto) 0.3 (0.1-0.6) 03/31/18 07:00 Eos # (Auto) 0.4 (0.0-0.7) 03/31/18 07:00 Baso # (Auto) 0.05 K/mm3 (0.0-2.0) 03/31/18 07:00 ESR 20 mm/hr (0.0-20.0) 03/29/18 06:30 PT 10.9 SECONDS (9.4-12.5) 03/28/18 11:35 INR 0.95 03/28/18 11:35 APTT 31.6 Seconds (25.1-36.5) 03/28/18 11:35 Sodium 136 mmol/L (132-148) 03/31/18 06:30 Potassium 5.1 mmol/L (3.6-5.0) H 03/31/18 06:30 Chloride 97 mmol/L (98-107) L 03/31/18 06:30 Carbon Dioxide 21 mmol/L (21-33) 03/31/18 06:30 Anion Gap 23 (10-20) H 03/31/18 06:30 BUN 52 mg/dL (7-21) H 03/31/18 06:30 Creatinine 9.9 mg/dl (0.7-1.2) H* D 03/31/18 06:30 Est GFR ( Amer) 5 03/31/18 06:30 Est GFR (Non-Af Amer) 4 03/31/18 06:30 POC Glucose (mg/dL) 188 mg/dL (65-110) H 03/31/18 07:21 Random Glucose 184 mg/dL (70-110) H 03/31/18 06:30 Hemoglobin A1c 8.5 % (4.2-6.5) H 03/28/18 11:35 Calcium 8.5 mg/dL (8.4-10.5) 03/31/18 06:30 Phosphorus 6.4 mg/dL (2.5-4.5) H 03/29/18 06:30 Magnesium 2.4 mg/dL (1.7-2.2) H 03/29/18 06:30 Total Bilirubin 0.7 mg/dL (0.2-1.3) 03/31/18 06:30 AST 17 U/L (14-36) 03/31/18 06:30 ALT 6 U/L (7-56) L 03/31/18 06:30 Alkaline Phosphatase 188 U/L (38-126) H 03/31/18 06:30 Troponin I 0.04 ng/mL 03/28/18 13:25 C-React Prot High Sens 2.34 mg/L (1.00-3.00) 03/29/18 06:30 Total Protein 7.6 g/dL (5.8-8.3) 03/31/18 06:30 Albumin 4.3 g/dL (3.0-4.8) 03/31/18 06:30 Globulin 3.3 gm/dL 03/31/18 06:30 Albumin/Globulin Ratio 1.3 (1.1-1.8) 03/31/18 06:30 Triglycerides 106 mg/dL (35-160) 03/28/18 13:25 Cholesterol 232 mg/dL (130-200) H 03/28/18 13:25 LDL Cholesterol Direct 117 mg/dL (0-129) 03/28/18 13:25 HDL Cholesterol 55 mg/dL (29-60) 03/28/18 13:25 Vitamin B12 975 pg/mL (239-931) H 03/29/18 06:30 25-OH Vitamin D Total 34.6 NG/ML (30.0-100.0) 03/29/18 06:30 Folate > 20.0 ng/mL 03/29/18 06:30 Homocysteine 23.6 umol/L (4.7-12.6) H 03/29/18 06:30 Blood Type O POSITIVE 03/28/18 12:04 Blood Type Confirm O POSITIVE 03/28/18 12:55 Antibody Screen Negative 03/28/18 12:04 BBK History Checked No verified bt 03/28/18 12:04 - Hospital Course Hospital Course: On admission: 52 y/o female PMHx of ESRD on HD (MWF), GERD, HTN, DM, CVA, TIA, dyslipidemia presents to the ED with bilateral lower extremities weakness for 2 days . MRI brain showed a small acute infarct left posterolateral thalamus. Hospital course: Patient got admitted for bilateral lower extremity weakness in the setting of acute left thalamic stroke. MRI brain brain There is a small acute infarct left posterolateral thalamus. Patient has 3/5 muscle strength left LE. 3/5 muscle strength right LE, on physical exam. CT head showed no acute strokes but there was chronic lacunar infarcts. Carotid doppler showed bilateral 20-39% proximal ICA stenosis. MRI lumbar spine showed no acute fractures, no retropulsed fragments. Echocardiogram showed . PT/PTT/INR 10.9/31.6/0.95 . Patient was adviced to keep head of bed elevated at least 30 degrees. Patient has end stage kidney disease, on HD M//. Went for HD on Friday. As per Nephro consulted Dr Dimitri Churchill, patient continued sensipar, started renagel for phosphate, takes velphoro at home, nephrocap started. HgB was ok no need for SANDEEP at that time. Renal diet with low potassium established. Patient had Uncontrolled hypertension despite patient's compliance with meds as an outpatient. She was dmitted to the telemetry unit for blood pressure management. Hypertension home meds were resumed; Clonidine 0.1mg TID, amlodipine 10, Labetalol 100 mg BID, hydralazine 100 TID. Asprin 81, plavix 75 , lipitor 80 were resumed as well. Vital signs checked q4hr. Patient had a history of DM2 WITH HgA1c 8.5. ISS-medium initiated with accuchecks. Physical therapy evaluated the patient and recommended that the patient should be transferred to a rehab facility to resume her muscle strength.. Patient was medically optimized, hemadynamically stable and was able to be discharged today for rehab. On Discharge: Follow up with your PMD Dr Mcgowan upon discharge from rehab Follow up with your director strategy Take medications as prescribed Follow exercise and diet regimen for better control of hypertension and diabetes to avoid recurrent estes Please return to emergency department if symptoms recur - Date & Time of H&P Date of H&P: 03/31/18 Time of H&P: 12:52 Discharge Exam - Head Exam Head Exam: ATRAUMATIC, NORMAL INSPECTION, NORMOCEPHALIC - Eye Exam Eye Exam: EOMI, Normal appearance, PERRL Pupil Exam: NORMAL ACCOMODATION, PERRL - ENT Exam ENT Exam: Mucous Membranes Moist, Normal Exam - Neck Exam Neck exam: Normal Inspection - Respiratory Exam Respiratory Exam: Clear to PA & Lateral, NORMAL BREATHING PATTERN - Cardiovascular Exam Cardiovascular Exam: REGULAR RHYTHM, +S1, +S2 - GI/Abdominal Exam GI & Abdominal Exam: Normal Bowel Sounds, Soft - Rectal Exam Rectal Exam: Deferred - Extremities Exam Extremities exam: normal capillary refill, normal inspection - Back Exam Back exam: FULL ROM, NORMAL INSPECTION - Neurological Exam Neurological exam: CN II-XII Intact, Oriented x3 Additional comments: bilateral lower extremity weakness. Muscle strength 3/5 right and left LE intact sensation - Psychiatric Exam Psychiatric exam: Normal Affect, Normal Mood - Skin Skin Exam: Dry, Intact, Normal Color, Warm Discharge Plan - Follow Up Plan Condition: STABLE Disposition: REHAB FACILITY/REHAB UNIT Instructions: Stroke (DC), Lowering the Risk of Having Another Stroke, Diabetes and Diet, Dialysis and Diet, Renal Failure Diet (DC), Hypertension (DC) Additional Instructions: Follow up with your PMD Dr Mcgowan upon discharge from rehab Follow up with your director strategy Take medications as prescribed Follow exercise and diet regimen for better control of hypertension and diabetes to avoid recurrent estes Please return to emergency department if symptoms recur Referrals: Mj Degroot MD [Staff Provider] - Nicky Magana MD [Staff Provider] - <Lexi Connors - Last Filed: 04/01/18 14:09> Provider - Provider Date of Admission: 03/28/18 15:10 Attending physician: Lexi Connors MD Hospital Course - Lab Results Lab Results: Most Recent Lab Values WBC 4.4 10^3/ul (4.5-11.0) L 03/31/18 07:00 RBC 4.15 10^6/uL (3.5-6.1) 03/31/18 07:00 Hgb 11.7 g/dL (12.0-16.0) L 03/31/18 07:00 Hct 35.7 % (36.0-48.0) L 03/31/18 07:00 MCV 86.0 fl (80.0-105.0) 03/31/18 07:00 MCH 28.2 pg (25.0-35.0) 03/31/18 07:00 MCHC 32.8 g/dl (31.0-37.0) 03/31/18 07:00 RDW 15.5 % (11.5-14.5) H 03/31/18 07:00 Plt Count 183 10^3/uL (120.0-450.0) 03/31/18 07:00 MPV 11.7 fl (7.0-11.0) H 03/31/18 07:00 Gran % 46.5 % (50.0-68.0) L 03/31/18 07:00 Lymph % (Auto) 37.6 % (22.0-35.0) H 03/31/18 07:00 [place] % (Auto) 5.9 % (1.0-6.0) 03/31/18 07:00 Eos % (Auto) 8.9 % (1.5-5.0) H 03/31/18 07:00 Baso % (Auto) 1.1 % (0.0-3.0) 03/31/18 07:00 Gran # 2.04 (1.4-6.5) 03/31/18 07:00 Lymph # (Auto) 1.7 (1.2-3.4) 03/31/18 07:00 [place] # (Auto) 0.3 (0.1-0.6) 03/31/18 07:00 Eos # (Auto) 0.4 (0.0-0.7) 03/31/18 07:00 Baso # (Auto) 0.05 K/mm3 (0.0-2.0) 03/31/18 07:00 ESR 20 mm/hr (0.0-20.0) 03/29/18 06:30 PT 10.9 SECONDS (9.4-12.5) 03/28/18 11:35 INR 0.95 03/28/18 11:35 APTT 31.6 Seconds (25.1-36.5) 03/28/18 11:35 Sodium 136 mmol/L (132-148) 03/31/18 06:30 Potassium 5.1 mmol/L (3.6-5.0) H 03/31/18 06:30 Chloride 97 mmol/L (98-107) L 03/31/18 06:30 Carbon Dioxide 21 mmol/L (21-33) 03/31/18 06:30 Anion Gap 23 (10-20) H 03/31/18 06:30 BUN 52 mg/dL (7-21) H 03/31/18 06:30 Creatinine 9.9 mg/dl (0.7-1.2) H* D 03/31/18 06:30 Est GFR ( Amer) 5 03/31/18 06:30 Est GFR (Non-Af Amer) 4 03/31/18 06:30 POC Glucose (mg/dL) 163 mg/dL (65-110) H 03/31/18 16:09 Random Glucose 184 mg/dL (70-110) H 03/31/18 06:30 Hemoglobin A1c 8.5 % (4.2-6.5) H 03/28/18 11:35 Calcium 8.5 mg/dL (8.4-10.5) 03/31/18 06:30 Phosphorus 6.4 mg/dL (2.5-4.5) H 03/29/18 06:30 Magnesium 2.4 mg/dL (1.7-2.2) H 03/29/18 06:30 Total Bilirubin 0.7 mg/dL (0.2-1.3) 03/31/18 06:30 AST 17 U/L (14-36) 03/31/18 06:30 ALT 6 U/L (7-56) L 03/31/18 06:30 Alkaline Phosphatase 188 U/L (38-126) H 03/31/18 06:30 Troponin I 0.04 ng/mL 03/28/18 13:25 C-React Prot High Sens 2.34 mg/L (1.00-3.00) 03/29/18 06:30 Total Protein 7.6 g/dL (5.8-8.3) 03/31/18 06:30 Albumin 4.3 g/dL (3.0-4.8) 03/31/18 06:30 Globulin 3.3 gm/dL 03/31/18 06:30 Albumin/Globulin Ratio 1.3 (1.1-1.8) 03/31/18 06:30 Triglycerides 106 mg/dL (35-160) 03/28/18 13:25 Cholesterol 232 mg/dL (130-200) H 03/28/18 13:25 LDL Cholesterol Direct 117 mg/dL (0-129) 03/28/18 13:25 HDL Cholesterol 55 mg/dL (29-60) 03/28/18 13:25 Vitamin B12 975 pg/mL (239-931) H 03/29/18 06:30 25-OH Vitamin D Total 34.6 NG/ML (30.0-100.0) 03/29/18 06:30 Folate > 20.0 ng/mL 03/29/18 06:30 Homocysteine 23.6 umol/L (4.7-12.6) H 03/29/18 06:30 Blood Type O POSITIVE 03/28/18 12:04 Blood Type Confirm O POSITIVE 03/28/18 12:55 Antibody Screen Negative 03/28/18 12:04 BBK History Checked No verified bt 03/28/18 12:04 Attending/Attestation - Attestation I have personally seen and examined this patient.: Yes I have fully participated in the care of the patient.: Yes I have reviewed all pertinent clinical information, including history, physical exam and plan: Yes Notes (Text): 04/01/18 14:05 Attending note; Patient seen and examined with resident. Patient is alert and awake. Leg weakness is improving. Patient is a 52 year old female with PMHx of ESRD on HD (MWF), GERD, HTN, DM, CVA, TIA dyslipidemia presents to the ED with bilateral lower extremities weakness for [address] head is negative for acute stroke. MRI showed small acute left thalamic infarct. Continue aspirin and Plavix. End-stage renal disease on dialysis; nephrology evaluation appreciated. Had hemodialysis on Friday via right arm AV graft. Hypertension; blood pressure improved. continue clonidine, labetalol and Norvasc. Started on Cozaar. Diabetes; continue Levemir added. Continue regular insulin sliding scale . Dietary education given . Carotid Doppler without significant stenosis. PT evaluation appreciated. Acute rehabilitation recommended. The need for strict blood pressure and diabetic control discussed with patient in detail. Education given multiple times. case discussed with casey saw operator/social sciences lecturer for discharge planning. patient will be transferred to [facility] acute rehabilitation today. Upon discharge the patient will follow-up with PMD Dr. Mcgowan.
--- NOTE | 2018-03-31 14:00 | CP.PCM.PN ---
Subjective - Date & Time of Evaluation Date of Evaluation: 03/31/18 Time of Evaluation: 13:59 - Subjective Subjective: Nephrology Consultation Note Assessment: Stable Acute CVA Diabetic chronic Kidney Disease (E11.22) Hypertensive Chronic Kidney Disease (I12.0) End stage renal disease (N18.6) dependence on hemodialysis (Z99.2) (MWF) via AVF Anemia (D64.9), Hyperphosphatemia (E83.39), Secondary Hyperparathyroidism (E21.1 ), HTN (I12.0) Plan: Will plan for HD tomorrow as ordered. Continue with Nephrovite 1 tab/day. PRBC as needed for anemia. not on SANDEEP with dialysis as last Hb 12.4 Continue with phos binders, last phos level 6.4 Continue with sensipar BP control with meds as ordered. Patient not on RAAS yuliet hence added losartan 50 mg/day Glycemic control, Dialysis consistent diet Further work up/management as per primary team Dose meds/antibiotics (if needed) for ESRD status. Avoid fleets enema/magnesium based laxatives. neurology following pt for d/c to rehab [facility] soon Thanks for allowing me to participate in care of your patient. Will follow patient with you. Please call if any Qs Dr Con Tejada Office: [phone] Subjective: Noted events overnight. Patients feels okay. Denies chest pain, palpitation, shortness of breath, leg swelling. improved leg weakness All other negative Physical Examination: General Appearance: Comfortable, in no acute respiratory distress, co-operative . Vitals reviewed and noted as below Head; Atraumatic, normocephalic ENT: no ulcers no thrush. Tongue is midline. Oropharynx: no rash or ulcers. EYES: Pupils are equal, round and reactive to light accommodation. Eye muscles and extraocular movement intact. Sclera is anicteric. Neck; supple no lymphadenopathy, no thyromegaly or bruit Lungs: Normal respiratory rate/effort. Breath sounds bilateral equal and clear Heart: Normal rate. s1s2 normal. No rub or gallop. Extremities: no edema. No varicose veins Neurological: Patient is alert, awake and oriented to person, place and time. b/ l lower legs weakness improving Skin: Warm and dry. Normal turgor. No rash. Palpitation: Normal elasticity for age Abdomen: Abdomen is soft. Bowel sounds +. There is no abdominal tenderness, no guarding/rigidity or organomegaly Psych: normal insight and normal affect/mood MSK: no joint tenderness or swelling. Digits and nails normal, no deformity : kidney or bladder not palpable Access: AVF Labs/imaging reviewed. Past medical history, past surgical history, family history, social history, allergy reviewed and noted as below Family Hx: no hx of CKD. Non contributory Objective - Vital Signs/Intake and Output Vital Signs (last 24 hours): Temp Pulse Resp BP Pulse Ox 98.3 F 71 20 130/73 100 03/31/18 11:55 03/31/18 11:55 03/31/18 11:55 03/31/18 11:55 03/31/18 06:00 Intake and Output: 03/31/18 03/31/18 06:59 18:59 Intake Total 180 Output Total 0 Balance 180 - Medications Medications: Current Medications Amlodipine Besylate (Norvasc) 10 mg PO DAILY [facility] Last Admin: 03/31/18 10:09 Dose: 10 mg Aspirin (Ecotrin) 81 mg PO DAILY [facility] Last Admin: 03/31/18 10:09 Dose: 81 mg Atorvastatin Calcium (Lipitor) 80 mg PO HS [facility] Last Admin: 03/30/18 22:40 Dose: 80 mg Cinacalcet (Sensipar) 30 mg PO DAILY [facility] Last Admin: 03/31/18 10:10 Dose: 30 mg Clonidine HCl (Catapres) 0.1 mg PO TID [facility] Last Admin: 03/31/18 10:09 Dose: 0.1 mg Clopidogrel Bisulfate (Plavix) 75 mg PO DAILY [facility] Last Admin: 03/31/18 10:13 Dose: 75 mg Insulin Detemir (Levemir) 10 unit SC [facility] Last Admin: 03/30/18 22:42 Dose: 10 unit Insulin Human Regular (Humulin R Med) 0 units SC [facility] PRN Reason: Protocol Last Admin: 03/31/18 13:34 Dose: 3 units Labetalol HCl (Trandate) 100 mg PO Q12 [facility] Last Admin: 03/31/18 10:10 Dose: 100 mg Losartan Potassium (Cozaar) 50 mg PO DAILY [facility] Last Admin: 03/31/18 10:09 Dose: 50 mg Pantoprazole Sodium (Protonix Ec Tab) 40 mg PO 0600 [facility] Last Admin: 03/31/18 06:56 Dose: 40 mg Sevelamer HCl (Renagel) 1,600 mg PO TID [facility] Vitamin B Complex/Vit C/Folic Acid (Nephro-Mila) 1 tab PO 0800 [facility] Last Admin: 03/31/18 10:10 Dose: 1 tab - Labs Labs: 03/31/18 07:00 03/31/18 06:30 PT 10.9 SECONDS (9.4-12.5) 03/28/18 11:35 INR 0.95 03/28/18 11:35 APTT 31.6 Seconds (25.1-36.5) 03/28/18 11:35
[2018-03-31 15:20] VITALS: BP 130/83
== END 2018-03-31 17:16 | DRG 64 ==
LOC: ED 11:01 → ERH 15:10 → 2RSO 18:18
PROVIDERS: ADMIT Internal Medicine; ATTEND Internal Medicine
PROC: 5A1D70Z Performance of Urinary Filtration, Intermittent, Less than 6 Hours Per Day (ICD-10-PCS; principal; 2018-03-30)
DX: I63.9 Cerebral infarction, unspecified (principal); N18.6 End stage renal disease; N25.81 Secondary hyperparathyroidism of renal origin; I12.0 Hypertensive chronic kidney disease with stage 5 chronic kidney disease or end stage renal disease; I25.10 Atherosclerotic heart disease of native coronary artery without angina pectoris; E11.22 Type 2 diabetes mellitus with diabetic chronic kidney disease; E11.319 Type 2 diabetes mellitus with unspecified diabetic retinopathy without macular edema; D63.1 Anemia in chronic kidney disease; E11.42 Type 2 diabetes mellitus with diabetic polyneuropathy; E11.43 Type 2 diabetes mellitus with diabetic autonomic (poly)neuropathy; K31.84 Gastroparesis; I65.23 Occlusion and stenosis of bilateral carotid arteries; J44.9 Chronic obstructive pulmonary disease, unspecified; E78.00 Pure hypercholesterolemia, unspecified; N28.1 Cyst of kidney, acquired; K21.9 Gastro-esophageal reflux disease without esophagitis; E83.39 Other disorders of phosphorus metabolism; Z99.2 Dependence on renal dialysis; Z86.73 Personal history of transient ischemic attack (TIA), and cerebral infarction without residual deficits; Z95.5 Presence of coronary angioplasty implant and graft; Z87.891 Personal history of nicotine dependence

== ENCOUNTER 2018-04-23 05:36 | Inpatient (IN) | payer MEDICARE, MEDICAID ==
[2018-04-23 05:38] VITALS: BMI 32.2
--- NOTE | 2018-04-23 05:39 | EDPD ---
HPI Stroke - General Time Seen by Provider: 04/23/18 05:38 Historian: Patient, EMS - History of Present Illness Narrative History of Present Illness (Free Text): 04/23/18 05:32 Carlyn Bah is a 52 year old female, whose past medical history includes ESRD on hemodialysis (Friday/Friday/Friday), hypertension, TIA/CVA, diabetes, dyslipidemia, and GERD, who presents to the Emergency department brought in by ALS complaining of left-sided facial droop. Patient states she woke up this morning at approximately 04:30 with a left-sided facial droop and slurred speech. Patient notified her sisters, who called 911. Patient was last well prior to going to bed at 20:30 yesterday evening. Patient denies any chest pain , shortness of breath, abdominal pain, vomiting, urinary symptoms, or any other complaints. Patient regularly takes Plavix. Patient was fully dialyzed yesterday. Date:: 04/23/18 Time: 05:33 Onset:: This morning Timing: Currently Symptomatic Context: Home Associated Symptoms: Dysarthria (slurred speech) Exacerbated by: Nothing Relieved by: Nothing - Location Location: Speech Locate Left: Face rTPA Inclusion/Exclusion - Refusal of Treatment Patient Refused Treatment: No - Inclusion Criteria for Altepase Patient is 18 years or Older: Yes The Clinical Diagnosis of Ischemic Stroke That is Causing a Potentially Disabling Neurological Deficit: No Time of Onset is Well Established to be Less Than 270 Minute Before Treatment Would Begin: No Risk/Benefit Discussed With Patient/Family Member Present: Yes - Exclusion Criteria for Altepase Uncontrolled Hypertension at Time of Treatment (Systolic BP above 185 or Diastolic BP above 110 mmHg): No Active Internal Bleeding: No Known Bleeding Diathesis Including but Not Limited to: Platelets Below 100,000/ mm,PTT Above 40 sec After Heparin Use, Current Use of Oral Anitcoagulant With INR Greater Than 1.7 or PT Greater Than 15 secs: No Evidence of an Intracranial Hemorrhage: No Evidence of Major Acute Infarct With Signs Greater Than 1/3 MCA Territory: No Suspicion of Subarachnoid Hemorrhage on Pretreatment Evaluation Even if CT Head Negative For Hemorrhage: No Past Medical History - Provider Review Nursing Documentation Reviewed: Yes - Tetanus Immunization Tetanus Immunization: Unknown - Cardiac Hx Cardiac Disorders: Yes Hx Congestive Heart Failure: Yes Hx Hypertension: Yes - Pulmonary Hx Chronic Obstructive Pulmonary Disease (COPD): Yes - Neurological HX Cerebrovascular Accident: Yes - HEENT Hx HEENT Disorder: Yes Hx Blind: Yes (Right eye) - Renal Hx Renal Failure: Yes - Endocrine/Metabolic Hx Diabetes Mellitus Type 1: Yes Hx Diabetes Mellitus Type 2: Yes - Hematological/Oncological Hx Blood Disorders: No Hx AIDS: No - Integumentary Hx Dermatological Disorder: No - Musculoskeletal/Rheumatological Hx Musculoskeletal Disorders: Yes Hx Falls: No Hx Unsteady Gait: Yes - Gastrointestinal Hx Gastrointestinal Disorders: Yes Hx Gastroesophageal Reflux: Yes Other/Comment: Gastroparesis - Genitourinary/Gynecological Hx Genitourinary Disorders: Yes Other/Comment: Anuric - Psychiatric Hx Psychophysiologic Disorder: Yes Hx Anxiety: Yes Hx Depression: Yes Hx Substance Use: No - Surgical History Hx Angiogram: Yes (LLE) Hx Coronary Stent: Yes (X4 2006) Hx Kidney Transplant: Yes (2007, Reversed 2014) Hx Vascular Access Device: Yes (Right Forearm AV fistula) Other/Comment: Right arm Lipoma excision - Anesthesia Hx Anesthesia: Yes Hx Anesthesia Reactions: No Hx Malignant Hyperthermia: No Family/Social History - Family/Social History Family History: Non-Contributory - Review Nursing documentation reviewed.: Yes Allergies/Home Meds Allergies/Adverse Reactions: Allergies levofloxacin [From Levaquin] Allergy (Verified 03/31/18 18:01) RASH Penicillins Allergy (Verified 03/31/18 18:01) RASH acetaminophen [From Tylenol PM] Adverse Reaction (Verified 03/31/18 18:01) NAUSEA diphenhydramine HCl [From Tylenol PM] Adverse Reaction (Verified 03/31/18 18:01) NAUSEA gabapentin Adverse Reaction (Verified 03/31/18 18:01) NAUSEA heparin Adverse Reaction (Verified 03/31/18 18:01) NAUSEA Shellfish Allergy (Uncoded 03/31/18 18:01) SWELLING Home Medications: Home Meds Medication Instructions Recorded Confirmed Aspirin [Ecotrin] 81 mg PO DAILY 08/03/17 03/31/18 Cinacalcet [Sensipar] 30 mg PO DAILY 08/03/17 03/31/18 Clopidogrel [Plavix] 1 tab PO DAILY 08/03/17 03/31/18 cloNIDine [Catapres] 0.1 mg PO Q8 08/03/17 03/31/18 Labetalol [Trandate] 100 mg PO Q12 03/28/18 03/31/18 Insulin Regular, Human [Novolin R] See Protocol SC ACHS 03/31/18 03/31/18 Losartan [Cozaar] 50 mg PO DAILY 03/31/18 03/31/18 Pantoprazole [Protonix EC Tab] 40 mg PO 0600 03/31/18 03/31/18 Review of Systems - Physician Review All systems were reviewed & negative as marked: Yes - Review of Systems Constitutional: Normal. absent: Fevers Eyes: Normal ENT: Normal Respiratory: Normal. absent: SOB, Cough Cardiovascular: Normal. absent: Chest Pain Gastrointestinal: Normal. absent: Abdominal Pain, Diarrhea, Nausea, Vomiting Genitourinary Female: Normal. absent: Dysuria, Frequency, Hematuria, Urine Output Changes Musculoskeletal: Normal. absent: Back Pain, Neck Pain Skin: Normal Neurological: Speech Changes (+slurred speech), Facial Droop Endocrine: Normal Hemo/Lymphatic: Normal Psychiatric: Normal ED Stroke Physical Exam Vital Signs Reviewed: Yes Temperature: Afebrile Blood Pressure: Normal Pulse: Regular Respiratory Rate: Normal Appearance: Positive for: Well-Appearing, Non-Toxic Pain Distress: None Mental Status: Positive for: Alert and Oriented X 3 - Systems Exam Head: Present: Atraumatic, Normocephalic Pupils: Present: PERRL Extroacular Muscles: Present: EOMI Conjunctiva: Present: Normal Mouth: Present: Moist Mucous Membranes Neck: Present: Normal Range of Motion. No: Meningeal Signs, MIDLINE TENDERNESS , Paraspinal Tenderness Respiratory/Chest: Present: Clear to Auscultation, Good Air Exchange. No: Respiratory Distress, Accessory Muscle Use Cardiovascular: Present: Regular Rate and Rhythm, Normal S1, S2. No: Murmurs Abdomen: Present: Normal Bowel Sounds. No: Tenderness, Distention, Peritoneal Signs Upper Extremity: Present: Normal Inspection. No: Cyanosis, Edema Lower Extremity: Present: Normal Inspection Neurologic: Present: GCS=15, Motor Func Grossly Intact (Mild right lower extremity weakness, residual from old stroke), Memory Normal, Facial Droop (Left -sided facial droop). No: Speech Normal (Slurred speech) Skin: Present: Warm, Dry, Normal Color. No: Rashes Psychiatric: Present: Alert, Oriented x 3 Medical Decision Making ED Course and Treatment: 04/23/18 05:39 Impression: 52 year old female complaining of left-sided facial droop and slurred speech since waking up at 04:30. Plan: -- CT Head w/o contrast -- EKG -- Chest X-ray -- Labs, blood type and screen, troponin, lipid panel, hemoglobin A1C -- Urinalysis -- IV fluids -- Reassess and disposition Prior Visits: Notes and results from previous visits were reviewed. On 03/28/2018, pt was seen in the Emergency department for bilateral lower extremity weakness. Code stroke was called. Pt was admitted to the hospital for further evaluation. Progress Notes: 04/23/18 05:32 Pt seen on arrival, Code Stroke called. Pt taken to CT scan. 04/23/18 05:[address] Magana, who is aware and agrees with plan. Pt not a candidate for CTA Head/Neck due to history of ESRD on hemodialysis. 04/23/18 05:53 Reviewed EKG, NSR at [address] bpm[address] Non-specific ST/T wave changes. Prolonged QT. 04/23/18 05:56 CT Head shows: Brain: Generalized volume loss. There is nonspecific periventricular and deep white matter disease. Left internal capsule and left pontine chronic lacunar infarcts noted. No hemorrhage. Ventricles: No acute findings. No ventriculomegaly. Bones/joints: No acute findings. No acute fracture. Soft tissues: No acute findings. Sinuses: No acute findings. No acute sinusitis. Mastoid air cells: No acute findings. No mastoid effusion. IMPRESSION: No acute findings. If there is continued clinical concern for acute ischemia, consider diffusionweighted MRI imaging. Dictated and Authenticated by: Eduardo Garcia MD 04/23/2018 5:56 AM Eastern Time ([place] & [place]) 04/23/18 06:[address] Magana, states pt is not a candidate for tPA due to history of ESRD. - Lab Interpretations I have reviewed the lab results: Yes - RAD Interpretation Hand Profiler: Radiologist - EKG Interpretation Interpreted by ED Physician: Yes Type: 12 lead EKG - Scribe Statement The provider has reviewed the documentation as recorded by the Scribe Filomena Valenzuela Provider Scribe Attestation: All medical record entries made by the Scribe were at my direction and personally dictated by me. I have reviewed the chart and agree that the record accurately reflects my personal performance of the history, physical exam, medical decision making, and the department course for this patient. I have also personally directed, reviewed, and agree with the discharge instructions and disposition. NIHSS Scale ([place]) Time Performed: 05:33 - How Severe is the Stoke Baseline Level of Consciousness: 0=Alert LOC to Questions: 0=Both comments correct LOC to commands: 0=Obeys both correctly Best Gaze: 0=Normal Visual: 0=No visual loss Facial: 2=Partial (lower face paralysis) Motor Arm - Left: 0=No drift Motor Arm - Right: 0=No drift Motor Leg - Left: 0=No drift Motor Leg - Right: 0=No drift Limb Ataxia: 0=Absent Sensory: 0=Normal Best Language: 0=No aphasia Dysarthia: 1=Mild to moderate slurring Extinction & Inattention (Neglect): 0=Normal, no object Score: 3 Risk Level: Minor Stroke Risk Disposition/Present on Arrival - Present on Arrival Any Indicators Present on Arrival: No History of DVT/PE: No History of Uncontrolled Diabetes: Yes Urinary Catheter: No History Surgical Site Infection Following: None - Disposition Have Diagnosis and Disposition been Completed?: Yes Diagnosis: CVA (cerebral vascular accident) Disposition: HOSPITALIZED Disposition Time: 06:15 Condition: FAIR
[2018-04-23] MEDS: Sodium Chloride 0.9% 1,000 ML IV SCH ×2 (05:50→17:08)
[2018-04-23 06:16] LABS: BASO # 0.06 K/mm3 (0.0-2.0); BASO % 1.3 % (0.0-3.0); EOS # 0.3 (0.0-0.7); EOS % 7.5 % (1.5-5.0); GRAN # 2.26 (1.4-6.5); GRAN % 49.8 % (50.0-68.0); HEMOGLOBIN 11.3 g/dL (12.0-16.0); LYMPH # 1.6 (1.2-3.4); LYMPH % 34.8 % (22.0-35.0); MEAN CELL VOLUME 85.6 fl (80.0-105.0); MEAN CORPUSCULAR HGB CONC 33.9 g/dl (31.0-37.0); MEAN PLATELET VOLUME 10.7 fl (7.0-11.0); MONO # 0.3 (0.1-0.6); MONO % 6.6 % (1.0-6.0); RBC 3.89 10^6/uL (3.5-6.1); RED CELL DISTRIBUTION WIDTH 15.4 % (11.5-14.5); WHITE BLOOD COUNT 4.5 10^3/ul (4.5-11.0)
[2018-04-23 06:23] LABS: INR 0.91; PARTIAL THROMBOPLASTIN TIME 35.3 Seconds (25.1-36.5); PROTHROMBIN TIME 10.5 SECONDS (9.4-12.5)
[2018-04-23 06:35] LABS: TROPONIN I 0.03 ng/mL
[2018-04-23 06:40] LABS: ALB/GLOB RATIO 1.5 (1.1-1.8); ALBUMIN 4.8 g/dL (3.0-4.8); CALCIUM 8.9 mg/dL (8.4-10.5)
--- NOTE | 2018-04-23 08:34 | CT ---
Date of service: 04/23/2018 PROCEDURE: CT HEAD WITHOUT CONTRAST. HISTORY: Code Stroke COMPARISON: 03/28/2018 TECHNIQUE: Axial computed tomography images were obtained through the head/brain without intravenous contrast. Radiation dose: Total exam DLP = 895 mGy-cm. This CT exam was performed using one or more of the following dose reduction techniques: Automated exposure control, adjustment of the mA and/or kV according to patient size, and/or use of iterative reconstruction technique. FINDINGS: HEMORRHAGE: No intracranial hemorrhage. BRAIN: No mass effect or edema. Severe chronic microvascular changes are seen in the periventricular white matter and basal ganglia. VENTRICLES: Unremarkable. No hydrocephalus. CALVARIUM: Unremarkable. PARANASAL SINUSES: Unremarkable as visualized. No significant inflammatory changes. MASTOID AIR CELLS: Unremarkable as visualized. No inflammatory changes. OTHER FINDINGS: The report concurs with the preliminary [facility] report IMPRESSION: No acute findings
--- NOTE | 2018-04-23 09:19 | RAD ---
Date of service: 04/23/2018 PROCEDURE: CHEST RADIOGRAPH, 1 VIEW HISTORY: Code Stroke COMPARISON: Frontal chest radiograph 03/28/2018. FINDINGS: LUNGS: Diminished inspiratory volume persists. Borderline patchy airspace disease right infrahilar space though this could reflect chronic crowding of bronchovascular markings due to limited inspiratory volume. Clinically correlate further. No definite left-sided airspace disease. PLEURA: No pneumothorax or pleural fluid seen. CARDIOVASCULAR: Prominent cardiac silhouette identified. No pulmonary vascular congestion. OSSEOUS STRUCTURES: No significant abnormalities. VISUALIZED UPPER ABDOMEN: Normal. OTHER FINDINGS: Incidental wall stent identified at right upper extremity medially. Right subclavian wall stent also identified. IMPRESSION: Borderline right infrahilar patchy atelectasis or infiltrate. Stable prominent cardiac silhouette. No pulmonary vascular congestion.
--- NOTE | 2018-04-23 09:44 | CARD ---
APPROVED REPORT Date of service: 04/23/2018 EKG Measurement Heart [id number] <Conclusion> Normal sinus rhythm T wave abnormality, consider lateral ischemia Prolonged QT Abnormal ECG
--- NOTE | 2018-04-23 13:00 | CP.PCM.HP ---
<Amy Chavis - Last Filed: 04/23/18 16:29> History of Present Illness - History of Present Illness History of Present Illness: PGY-3 H&P for hospitalist service 52 yo female with PMH includes ESRD on hemodialysis (Friday/Friday/Friday) last received yesterday, hypertension, TIA/CVA, diabetes, dyslipidemia, and GERD , who presents to the Emergency department brought in by ALS complaining of left -sided facial droop. Patient states last night she was talking on the phone and was told that she was slurring her speech and this morning she woke up at approximately 04:30 with a left-sided facial droop. Patient notified her sisters , who called 911. Patient was last well prior to going to bed at 20:30 yesterday evening. She states that she went to hemodialysis yesterday adn was given medication for low hgb. She also states that she was evaluated and treated for stroke about 1 month ago and was recently discharged from rehab about 1 week ago. She also reports 2 CVA last year but denies any residual defects. Patient denies any chest pain, shortness of breath, abdominal pain, vomiting, urinary symptoms, dizziness weakness, fever, chills or any other complaints. Patient regularly takes Plavix. PMH: DM2, Diabetic Neuropathy, Gastroparesis, HTN, ESRD on HD, CAD s/p stentsX4 , COPD, TIA, GERD PSH: Kidney transplant 2007; Reversal on transplant 2014; retinopathy surgery to both eyes; Cataract surgery; Dialysis graft at the right upper arm Social history: former smoker, quit 5 yo, denied alcohol, illicit drug use, Family History: mother at age 74 of stroke, bother had complicated diabetic limb amputation. Father of TB Allergies: Levaquin.PCN;Tylenol; Benadryl [facility] Behavior Therapist : Dr. Churchill Present on Admission - Present on Admission Any Indicators Present on Admission: No Review of Systems - Constitutional Constitutional: absent: Chills, Fever, Headache, Lethargy, Weakness - EENT Eyes: Loss of Vision (chronic ). absent: Change in Vision Ears: absent: Dizziness Nose/Mouth/Throat: Tongue Swelling. absent: Nasal Congestion, Nasal Discharge - Cardiovascular Cardiovascular: absent: Chest Pain, Diaphoresis, Dyspnea, Edema, Irregular Heart Rhythm - Respiratory Respiratory: absent: Cough, Dyspnea, Hemoptysis, Wheezing - Gastrointestinal Gastrointestinal: absent: Abdominal Pain, Constipation, Diarrhea, Nausea, Vomiting - Genitourinary Genitourinary: Other (does not produce urine) - Musculoskeletal Musculoskeletal: absent: Abnormal Gait, Arthralgias, Back Pain, Myalgias, Numbness, Stiffness, Tingling - Integumentary Integumentary: absent: Rash, Sores, Swelling, Wounds - Neurological Neurological: Headaches, Other (slurred speech, facial droop). absent: Dizziness, Numbness, Focal Weakness, Weakness - Hematologic/Lymphatic Hematologic: absent: Easy Bleeding, Easy Bruising Past Patient History - Tetanus Immunizations Tetanus Immunization: Unknown - Past Medical History & Family History Past Medical History?: Yes - Past Social History Smoking Status: Former Smoker - CARDIAC Hx Cardiac Disorders: Yes Hx Congestive Heart Failure: Yes Hx Hypertension: Yes - PULMONARY Hx Chronic Obstructive Pulmonary Disease (COPD): Yes - NEUROLOGICAL HX Cerebrovascular Accident: Yes - HEENT Hx HEENT Problems: Yes Hx Blind: Yes (Right eye) - RENAL Hx Renal Failure: Yes - ENDOCRINE/METABOLIC Hx Diabetes Mellitus Type 1: Yes Hx Diabetes Mellitus Type 2: Yes - HEMATOLOGICAL/ONCOLOGICAL Hx Blood Disorders: No Hx AIDS: No - INTEGUMENTARY Hx Dermatological Problems: No - MUSCULOSKELETAL/RHEUMATOLOGICAL Hx Musculoskeletal Disorders: Yes Hx Falls: No Hx Unsteady Gait: Yes - GASTROINTESTINAL Hx Gastrointestinal Disorders: Yes Hx Gastroesophageal Reflux: Yes Other/Comment: Gastroparesis - GENITOURINARY/GYNECOLOGICAL Hx Genitourinary Disorders: Yes Other/Comment: Anuric - PSYCHIATRIC Hx Psychophysiologic Disorder: Yes Hx Anxiety: Yes Hx Depression: Yes Hx Substance Use: No - SURGICAL HISTORY Hx Angiogram: Yes (LLE) Hx Coronary Stent: Yes (X4 2006) Hx Kidney Transplant: Yes (2008, Reversed 2014) Hx Vascular Access Device: Yes (Right Forearm AV fistula) Other/Comment: Right arm Lipoma excision - ANESTHESIA Hx Anesthesia: Yes Hx Anesthesia Reactions: No Hx Malignant Hyperthermia: No Meds Allergies/Adverse Reactions: Allergies Allergy/AdvReac Type Severity Reaction Status Date / Time levofloxacin [From Levaquin] Allergy RASH Verified 03/31/18 18:01 Penicillins Allergy RASH Verified 03/31/18 18:01 acetaminophen AdvReac NAUSEA Verified 03/31/18 18:01 [From Tylenol PM] diphenhydramine HCl AdvReac NAUSEA Verified 03/31/18 18:01 [From Tylenol PM] gabapentin AdvReac NAUSEA Verified 03/31/18 18:01 heparin AdvReac NAUSEA Verified 03/31/18 18:01 Shellfish Allergy SWELLING Uncoded 03/31/18 18:01 Physical Exam - Constitutional Appears: No Acute Distress - Head Exam Head Exam: ATRAUMATIC - Eye Exam Eye Exam: EOMI, Normal appearance - ENT Exam ENT Exam: Mucous Membranes Dry - Respiratory Exam Respiratory Exam: Accessory Muscle Use, Clear to Auscultation Bilateral, Rales, Rhonchi, Wheezes, NORMAL BREATHING PATTERN - Cardiovascular Exam Cardiovascular Exam: Bradycardia, Tachycardia, REGULAR RHYTHM - GI/Abdominal Exam GI & Abdominal Exam: Normal Bowel Sounds, Soft. absent: Diminished Bowel Sounds , Distended, Firm, Guarding, Tenderness - Extremities Exam Extremities exam: Positive for: normal inspection. Negative for: pedal edema, tenderness - Neurological Exam Neurological exam: Alert, Oriented x3 Additional comments: left sided facial droop - Expanded Neurological Exam Expanded Patient oriented to: person, place, time Speech: Slurred Speech Cranial nerves: EOM's Intact: Normal Upper motor neuron: Pronator Drift: Normal Neuro motor strength exam: Left Upper Extremity: 5, Right Upper Extremity: 5, Left Lower Extremity: 5, Right Lower Extremity: 5 Coma Scale Eye Opening: SPONTANEOUS Coma Scale Motor Response: OBEYS COMMANDS Coma Scale Verbal: Oriented Coma Scale Total: 15 - Skin Skin Exam: Dry, Intact, Normal Color Results - Vital Signs Recent Vital Signs: Last Vital Signs Temp 98.8 F 04/23/18 12:04 Pulse 77 04/23/18 12:04 Resp 18 04/23/18 12:04 BP 162/86 H 04/23/18 12:04 Pulse Ox 99 04/23/18 07:35 - Labs Result Diagrams: 04/23/18 06:00 04/23/18 06:00 Labs: Laboratory Results - last 24 hr 04/23/18 07:29 POC Glucose (mg/dL) 263 H Assessment & Plan - Assessment and Plan (Free Text) Assessment: 52 yo female with PMH includes ESRD on hemodialysis (Friday/Friday/Friday) last received yesterday, hypertension, TIA/CVA, diabetes, dyslipidemia, and GERD , who presents complaining of left-sided facial droop further evaluation for CVA. Plan: left sided facial droop rule out CVA - CT head negative - recent echo on 03/30/18 showed EF of 65%, small PFO, grade 1 abnormal relaxation pattern - carotid US on 03/29/18 showed bilateral 20-35% proximal ICA stenoses - Neurologist, Dr. Magana consulted on admission - patient did not qualify for tPA due to ESRD - asa 325 was given, will continue with 81mg starting tomorrow - lipid panel within normal limits - lipitor 80mg HS started - continue plavix - will hold hypertension medications to avoid hypoperfusion of possible infarct - hgb a1c was 8.7 - consulted cardiology - continue IVF - MRI pending - continue neuro checks - swallow evaluation - PT and OT evaluations ESRD on HD - last dialysis yesterday 04/22, completed - consulted neprhologist Dr. Churchill HTN - currently controlled at 132/72 - hold all Blood pressure medications to avoid hypoperfusion of possible infarct area - continue to monitor diabetes - hgba1c 8.7 - continue levemir 10 units HS - ISS- med - POC blood glucose ACHS - NPO pending swallow eval Hyperlipidemia - lipid panel was within normal limits - continue lipitor 80mg HS GERD - continue protonix 40mg daily case seen and discussed with Dr. Osborn <Rosalia Osborn R - Last Filed: 04/23/18 18:04> Results - Vital Signs Recent Vital Signs: Last Vital Signs Temp 98.6 F 04/23/18 17:37 Pulse 75 04/23/18 17:37 Resp 18 04/23/18 17:37 BP 163/73 H 04/23/18 17:37 Pulse Ox 98 04/23/18 10:00 - Labs Result Diagrams: 04/23/18 06:00 04/23/18 06:00 Labs: Laboratory Results - last 24 hr 04/23/18 04/23/18 07:29 10:57 POC Glucose (mg/dL) 263 H 202 H Attending/Attestation - Attestation I have personally seen and examined this patient.: Yes I have fully participated in the care of the patient.: Yes I have reviewed all pertinent clinical information: Yes Notes (Text): Patient seen and examined by me at 10AM with resident. Case including HPI, physical exam, and assessment and plan discussed with resident. Agree with above with following additions/corrections. CC: Slurred speech and left facial droop. Patient is a 52-year-old female past medical history significant for end-stage renal disease on dialysis Friday/Friday/ Friday, hypertension, TIA/CVA, type 2 diabetes, diabetic neuropathy, coronary artery disease, COPD, dyslipidemia, and GERD the presented to the emergency room with left-sided facial droop and slurred speech. She states she went to dialysis yesterday morning and received an injection during dialysis for anemia. She states that she wasn't feeling well since then. She states in the evening around 9:30 PM, she was on the phone and was told that she was slurring her speech. She woke up around 4:30 AM, she noticed that her tongue felt large and her face was drooping. Patient states that she was treated for a stroke approximately one month ago and was discharged from [facility] approximately 1 week ago. She states that she had some right-sided leg weakness from the stroke. She states that she feels like she is having difficulty swallowing. She also complains of left- sided headache. No nausea or vomiting. Patient states that she has abdominal pain but this is chronic. No dizziness or change in vision. No fevers or chills. No chest pain or shortness of breath. No diarrhea or constipation. 12 point review of systems reviewed by me. Please see HPI. All other systems are negative. Home medications reviewed. Physical exam: General: Awake and alert lying in bed in no acute distress HEENT: Normocephalic atraumatic. Pupils equal reactive. No scleral icterus. Oropharynx is pink and moist. No pharyngeal erythema or exudate appreciated. Neck is supple. Hearing grossly intact. Ears and nose externally unremarkable Cardiovascular: Normal rhythm. Normal S1, S2. No murmurs, rubs, or gallops appreciated Pulmonary: Normal respiratory effort. No rhonchi, rales or wheezing appreciated. Gastrointestinal: Soft, nondistended. Mild generalized abdominal pain. Positive bowel sounds all 4 quadrants, no guarding. No organomegaly appreciated. Musculoskeletal: Moves all extremities, no calf tenderness, no edema appreciated. Central nervous system: AAOx3. Positive left sided facial droop. Positive dysarthria. 5/5 muscle strength all extremities. No pronator drift. Dermatologic: Skin warm and dry. Assessment and plan: Patient is a 52-year-old female past medical history significant for end-stage renal disease on dialysis Friday/Friday/ Friday, hypertension, TIA/CVA, type 2 diabetes, diabetic neuropathy, coronary artery disease, COPD, dyslipidemia, and GERD the presented to the emergency room with left-sided facial droop and slurred speech. 1. Left-sided facial droop. Dysarthria. Rule out CVA. CT head per radiologist shows no acute findings. MRI brain pending. Neurology checks every 4 hours. PT/ OT/speech and swallow evaluation and treatment. Patient did not qualify for post TPA due to end-stage renal disease. Aspirin 325 mg by mouth 1 dose given. Aspirin 81 mg daily. Started on Lipitor. Patient had carotid ultrasound on 03/29 which showed bilateral 20-35% proximal ICA stenosis. 2-D echo on 2017 per youth officer showed EF of 65%, possible small PFO, grade 1 abnormal relaxation pattern (see official read for full details). Neurology consulted, follow-up recommendations. Cardiology consulted, follow-up recommendations. We' ll hold blood pressure medications to allow for permissive hypertension for 24- 48 hours or until CVA is ruled out. Monitor on telemetry. 2. End-stage renal disease on dialysis. Continue dialysis Friday, Friday, Friday. Nephrology consulted, follow up recommendations. Continue nephrovite. 3. Hypertension. Patient's blood pressure medications held for now to allow for permissive hypertension for possible CVA. 4. DM2. Placed on insulin sliding scale. Monitor Accu-Cheks. Will hold home Levemir for now as patient is NPO until swallow eval. 5. CAD. Possible small PFO on recent echo. Continue ASA and plavix. Continue Lipitor. Beta yuliet on hold for now to allow for permissive hypertension. Cardiology consulted, follow up recommendations. 6. Hyperlipidemia. Continue Lipitor 7. History of CVA. Continue aspirin, Plavix, and Lipitor. PT eval and treat. 8. History of COPD. Not in acute exacerbation. Monitor for now. 9. GERD. Placed on Protonix. 10. GI/DVT prophylaxis. Protonix and SCDs. Can not place on heparin and lovenox secondary to allergies Case was discussed in detail with the patient regarding current diagnosis and treatment plan. All questions were answered.
[2018-04-23] MEDS: Insulin Reg-MEDIUM-Coverage SC SCH ×2 (16:46→21:06)
--- NOTE | 2018-04-23 16:57 | CP.PCM.CON ---
History of Present Illness - History of Present Illness History of Present Illness: Nephrology Consultation Note Assessment: Stable Acute CVA Diabetic chronic Kidney Disease (E11.22) Hypertensive Chronic Kidney Disease (I12.0) End stage renal disease (N18.6) dependence on hemodialysis (Z99.2) (MWF) via AVF Anemia (D64.9), Hyperphosphatemia (E83.39), Secondary Hyperparathyroidism (E21.1 ), HTN (I12.0) hx of CVAs Plan: Will plan for HD tomorrow as ordered per MW schedule. Continue with Nephrovite 1 tab/day. PRBC as needed for anemia. not on SANDEEP with dialysis as last Hb 11.3 Continue with phos binders, check phos level with next labs BP control with meds as ordered. Patient on RAAS yuliet as losartan Glycemic control, Dialysis consistent diet Further work up/management as per primary team Dose meds/antibiotics (if needed) for ESRD status. Avoid fleets enema/magnesium based laxatives. neurology following Thanks for allowing me to participate in care of your patient. Will follow patient with you. Please call if any Qs Dr Con Tejada Office: [phone] CC: slurred speech HPI: pt is a 52 F with hx of ESRD on HD MWF @ [facility], last HD yesterday, DM , HTN, CVA, Anemia, hyperlipidemia came with left facial droop and slurred speech since yesterday. she is admited and being managed for CVA. renal consult for ESRD management. pt feels same denies CP/SOB or nausea/vomitting ROS: Noted events overnight. Patients feels same Denies chest pain, palpitation, shortness of breath, leg swelling. besides facial drop, denies weakness in extremities All other negative but limited due to her slurred speech Physical Examination: General Appearance: Comfortable, in no acute respiratory distress, co-operative . Vitals reviewed and noted as below Head; Atraumatic, normocephalic ENT: no ulcers no thrush. Tongue is midline. Oropharynx: no rash or ulcers. EYES: Pupils are equal, round and reactive to light accommodation. Eye muscles and extraocular movement intact. Sclera is anicteric. Neck; supple no lymphadenopathy, no thyromegaly or bruit Lungs: Normal respiratory rate/effort. Breath sounds bilateral equal and clear Heart: Normal rate. s1s2 normal. No rub or gallop. Extremities: no edema. No varicose veins Neurological: Patient is alert, awake and oriented to person, place and time. left facial dropp with slurred speech noted Skin: Warm and dry. Normal turgor. No rash. Palpitation: Normal elasticity for age Abdomen: Abdomen is soft. Bowel sounds +. There is no abdominal tenderness, no guarding/rigidity or organomegaly Psych: normal insight and normal affect/mood MSK: no joint tenderness or swelling. Digits and nails normal, no deformity : kidney or bladder not palpable Access: AVF Labs/imaging reviewed. Past medical history, past surgical history, family history, social history, allergy reviewed and noted as below Family Hx: no hx of CKD. Non contributory Past Patient History - Tetanus Immunizations Tetanus Immunization: Unknown - Past Medical History & Family History Past Medical History?: Yes - Past Social History Smoking Status: Former Smoker - CARDIAC Hx Cardiac Disorders: Yes Hx Congestive Heart Failure: Yes Hx Hypertension: Yes - PULMONARY Hx Chronic Obstructive Pulmonary Disease (COPD): Yes - NEUROLOGICAL HX Cerebrovascular Accident: Yes - HEENT Hx HEENT Problems: Yes Hx Blind: Yes (Right eye) - RENAL Hx Renal Failure: Yes - ENDOCRINE/METABOLIC Hx Diabetes Mellitus Type 1: Yes Hx Diabetes Mellitus Type 2: Yes - HEMATOLOGICAL/ONCOLOGICAL Hx Blood Disorders: No Hx AIDS: No - INTEGUMENTARY Hx Dermatological Problems: No - MUSCULOSKELETAL/RHEUMATOLOGICAL Hx Musculoskeletal Disorders: Yes Hx Falls: No Hx Unsteady Gait: Yes - GASTROINTESTINAL Hx Gastrointestinal Disorders: Yes Hx Gastroesophageal Reflux: Yes Other/Comment: Gastroparesis - GENITOURINARY/GYNECOLOGICAL Hx Genitourinary Disorders: Yes Other/Comment: Anuric - PSYCHIATRIC Hx Psychophysiologic Disorder: Yes Hx Anxiety: Yes Hx Depression: Yes Hx Substance Use: No - SURGICAL HISTORY Hx Angiogram: Yes (LLE) Hx Coronary Stent: Yes (X4 2006) Hx Kidney Transplant: Yes (2007, Reversed 2014) Hx Vascular Access Device: Yes (Right Forearm AV fistula) Other/Comment: Right arm Lipoma excision - ANESTHESIA Hx Anesthesia: Yes Hx Anesthesia Reactions: No Hx Malignant Hyperthermia: No Meds Allergies/Adverse Reactions: Allergies Allergy/AdvReac Type Severity Reaction Status Date / Time levofloxacin [From Levaquin] Allergy RASH Verified 03/31/18 18:01 Penicillins Allergy RASH Verified 03/31/18 18:01 acetaminophen AdvReac NAUSEA Verified 03/31/18 18:01 [From Tylenol PM] diphenhydramine HCl AdvReac NAUSEA Verified 03/31/18 18:01 [From Tylenol PM] gabapentin AdvReac NAUSEA Verified 03/31/18 18:01 heparin AdvReac NAUSEA Verified 03/31/18 18:01 Shellfish Allergy SWELLING Uncoded 03/31/18 18:01 - Medications Medications: Current Medications Amlodipine Besylate (Norvasc) 10 mg PO DAILY [facility] Aspirin (Aspirin Chewable) 81 mg PO DAILY [facility] Atorvastatin Calcium (Lipitor) 80 mg PO HS [facility] Clonidine HCl (Catapres) 0.1 mg PO Q8 [facility] Clopidogrel Bisulfate (Plavix) 75 mg PO DAILY [facility] Insulin Detemir (Levemir) 10 unit SC HS [facility] Insulin Human Regular (Humulin R Med) 0 units SC ACHS [facility] PRN Reason: Protocol Last Admin: 04/23/18 16:46 Dose: Not Given Labetalol HCl (Trandate) 100 mg PO Q12 [facility] Losartan Potassium (Cozaar) 50 mg PO DAILY [facility] Pantoprazole Sodium (Protonix Ec Tab) 40 mg PO 0600 [facility] Vitamin B Complex/Vit C/Folic Acid (Nephro-Mila) 1 tab PO 0800 [facility] Results - Vital Signs Recent Vital Signs: Last Vital Signs Temp 98.8 F 04/23/18 12:04 Pulse 77 04/23/18 14:00 Resp 18 04/23/18 12:16 BP 162/86 H 04/23/18 12:04 Pulse Ox 98 04/23/18 10:00 - Labs Result Diagrams: 04/23/18 06:00 04/23/18 06:00 Labs: Laboratory Results - last 24 hr 04/23/18 04/23/18 07:29 10:57 POC Glucose (mg/dL) 263 H 202 H
--- NOTE | 2018-04-24 00:19 | CON ---
DATE: 04/23/2018 REASON FOR CONSULTATION: Cardiac evaluation, history of coronary artery disease, history of stent, admitted with TIA/CVA. BRIEF CLINICAL HISTORY: This is a 52-year-old female with past medical history significant for end-stage renal disease, on dialysis Friday, Friday and Friday; hypertension; TIA and CVA in the past; diabetes; hyperlipidemia; coronary artery disease, possible multiple stents according to the patient who had facial droop according to her and slurring of speech 4:30 a.m., so came to the emergency room. Since the patient has end-stage renal disease, it was thought to be not a candidate for tPA, so the patient is being treated medically. Cardiology consult was called because of underlying coronary artery disease. PAST MEDICAL HISTORY: Significant for diabetes, hypertension, hyperlipidemia, end-stage renal disease, on dialysis, history of coronary artery disease status post stent, history of loop recorder and removal of loop recorder, being followed by Dr. Ang Mora. SOCIAL HISTORY: Denies any smoking. Denies any history of alcohol abuse. Used to smoke, quit many years ago. RECENT WORKUP: The patient was recently admitted with acute CVA and recently discharged on 04/14/2018 and was admitted on 03/31/2018. The patient had echocardiography on 03/30/2018 that revealed normal LV function, [id number] mitral regurgitation, aortic root display severe scleral calcific changes of the aorta, small PFO cannot be ruled out. EKG on last admission, sinus-solomon dated 08/02/2017. Then, repeat EKG on 08/03/2017 also shows normal sinus, sinus tachycardia. Then, on the last admission on 03/28/2018, the EKG showed normal sinus, T-wave abnormality considered lateral ischemia and when compared from the EKG today 04/23, no significant change from 03/28/2018, normal sinus. CURRENT MEDICATIONS: The patient is taking clonidine 0.1 mg, amlodipine 10 mg, vitamin B complex, Renagel, Losartan, labetalol, insulin, clopidogrel, Plavix and atorvastatin. ALLERGIES: ALLERGIC TO LEVAQUIN, PENICILLIN, ACETAMINOPHEN, HEPARIN, AND SHELLFISH. REVIEW OF SYSTEMS: As per HPI. PHYSICAL EXAMINATION: GENERAL: Height of the patient 5 feet 2 inches, weight of the patient 182 pounds, and body mass index 34 kg/m2. VITAL SIGNS: Temperature afebrile, heart rate 77, blood pressure 162/86. HEENT: PERRLA. Extraocular muscles intact. NECK: Supple. No carotid bruit or thyromegaly. CHEST: Clear to auscultation. A scar noted of the loop recorder. HEART: S1 and S2 regular. ABDOMEN: Soft. EXTREMITIES: Clubbing and cyanosis negative. LABORATORY DATA: EKG shows normal sinus, T-inversion I and AVL, unchanged from 03/28/2018. Blood workup; WBC 4.5, hemoglobin 11.9, hematocrit 33.3, platelet count 192. Chemistry shows sodium of 140, potassium 4.7, chloride 97, carbon dioxide 20, anion gap of 20, BUN 36, creatinine 8.5. IMPRESSION: A 52-year-old female, morbidly obese with body mass index 33 kg/sq m, history of end-stage renal disease, diabetes, hypertension, hyperlipidemia, on hemodialysis Friday, Friday and Friday; history of cerebrovascular accident recently, admitted with slurring of speech, possible recurrent cerebrovascular accident and transient ischemic attack, history of coronary artery disease status post stent in the past, history of paroxysmal atrial fibrillation, history of loop recorder and status post removal of loop recorder, being followed by Dr. Mora. RECOMMENDATIONS: Resume previous medications. Discussed with Dr. oMra, he is going to see the patient tomorrow. We will sign off. We will continue the care till tomorrow morning and transfer care tomorrow to Dr. Mora. In the interim, we will continue aspirin, Plavix and resume all previous medications. Lipid profile, TSH, hemoglobin A1c. We will follow with you. Thank you, Dr. Osborn for providing us the opportunity in taking care of the patient, Carlyn Bah. As I mentioned, we will transfer care tomorrow to Dr. Mora. Ko Aggarwal MD
--- NOTE | 2018-04-24 02:05 | CP.PCM.CON ---
History of Present Illness - History of Present Illness History of Present Illness: Please note that this history is obtained from the chart as patient is poor historian. she is not a tpa candidate as we do not know the time of onset. ; 52 yo female with PMH includes ESRD on hemodialysis (Friday/Friday/Friday) last received yesterday, hypertension, TIA/CVA, diabetes, dyslipidemia, and GERD , who presents to the Emergency department brought in by ALS complaining of left -sided facial droop. Patient states last night she was talking on the phone and was told that she was slurring her speech and this morning she woke up at approximately 04:30 with a left-sided facial droop. Patient notified her sisters , who called 911. Patient was last well prior to going to bed at 20:30 yesterday evening. She states that she went to hemodialysis yesterday adn was given medication for low hgb. She also states that she was evaluated and treated for stroke about 1 month ago and was recently discharged from rehab about 1 week ago. She also reports 2 CVA last year but denies any residual defects. Patient denies any chest pain, shortness of breath, abdominal pain, vomiting, urinary symptoms, dizziness weakness, fever, chills or any other complaints. Patient regularly takes Plavix. PMH: DM2, Diabetic Neuropathy, Gastroparesis, HTN, ESRD on HD, CAD s/p stentsX4 , COPD, TIA, GERD PSH: Kidney transplant 2007; Reversal on transplant 2014; retinopathy surgery to both eyes; Cataract surgery; Dialysis graft at the right upper arm Social history: former smoker, quit 5 yo, denied alcohol, illicit drug use, Family History: mother at age 74 of stroke, bother had complicated diabetic limb amputation. Father of TB Allergies: Levaquin.PCN;Tylenol; Benadryl ROS; negative On exam: ON my exam earlier on 04/23/18,the patient had a clear left sided facial droop, but no other deficits. She was following commands, moving al extremties well. There was left sided mild drift, gait was wide based. NIHHS: 2 Past Patient History - Tetanus Immunizations Tetanus Immunization: Unknown - Past Medical History & Family History Past Medical History?: Yes - Past Social History Smoking Status: Former Smoker - CARDIAC Hx Cardiac Disorders: Yes Hx Congestive Heart Failure: Yes Hx Hypertension: Yes - PULMONARY Hx Chronic Obstructive Pulmonary Disease (COPD): Yes - NEUROLOGICAL HX Cerebrovascular Accident: Yes - HEENT Hx HEENT Problems: Yes Hx Blind: Yes (Right eye) - RENAL Hx Renal Failure: Yes - ENDOCRINE/METABOLIC Hx Diabetes Mellitus Type 1: Yes Hx Diabetes Mellitus Type 2: Yes - HEMATOLOGICAL/ONCOLOGICAL Hx Blood Disorders: No Hx AIDS: No - INTEGUMENTARY Hx Dermatological Problems: No - MUSCULOSKELETAL/RHEUMATOLOGICAL Hx Musculoskeletal Disorders: Yes Hx Falls: No Hx Unsteady Gait: Yes - GASTROINTESTINAL Hx Gastrointestinal Disorders: Yes Hx Gastroesophageal Reflux: Yes Other/Comment: Gastroparesis - GENITOURINARY/GYNECOLOGICAL Hx Genitourinary Disorders: Yes Other/Comment: Anuric - PSYCHIATRIC Hx Psychophysiologic Disorder: Yes Hx Anxiety: Yes Hx Depression: Yes Hx Substance Use: No - SURGICAL HISTORY Hx Angiogram: Yes (LLE) Hx Coronary Stent: Yes (X4 2006) Hx Kidney Transplant: Yes (2007, Reversed 2014) Hx Vascular Access Device: Yes (Right Forearm AV fistula) Other/Comment: Right arm Lipoma excision - ANESTHESIA Hx Anesthesia: Yes Hx Anesthesia Reactions: No Hx Malignant Hyperthermia: No Meds Allergies/Adverse Reactions: Allergies Allergy/AdvReac Type Severity Reaction Status Date / Time levofloxacin [From Levaquin] Allergy RASH Verified 03/31/18 18:01 Penicillins Allergy RASH Verified 03/31/18 18:01 acetaminophen AdvReac NAUSEA Verified 03/31/18 18:01 [From Tylenol PM] diphenhydramine HCl AdvReac NAUSEA Verified 03/31/18 18:01 [From Tylenol PM] gabapentin AdvReac NAUSEA Verified 03/31/18 18:01 heparin AdvReac NAUSEA Verified 03/31/18 18:01 Shellfish Allergy SWELLING Uncoded 03/31/18 18:01 - Medications Medications: Current Medications Amlodipine Besylate (Norvasc) 10 mg PO DAILY [facility] Aspirin (Aspirin Chewable) 81 mg PO DAILY [facility] Atorvastatin Calcium (Lipitor) 80 mg PO HS [facility] Last Admin: 04/23/18 22:23 Dose: 80 mg Clonidine HCl (Catapres) 0.1 mg PO Q8 [facility] Last Admin: 04/23/18 17:10 Dose: Not Given Clopidogrel Bisulfate (Plavix) 75 mg PO DAILY [facility] Insulin Detemir (Levemir) 10 unit SC HS [facility] Insulin Human Regular (Humulin R Med) 0 units SC ACHS [facility] PRN Reason: Protocol Last Admin: 04/23/18 16:46 Dose: Not Given Labetalol HCl (Trandate) 100 mg PO Q12 [facility] Losartan Potassium (Cozaar) 50 mg PO DAILY [facility] Pantoprazole Sodium (Protonix Ec Tab) 40 mg PO 0600 [facility] Vitamin B Complex/Vit C/Folic Acid (Nephro-Mila) 1 tab PO 0800 [facility] Results - Vital Signs Recent Vital Signs: Last Vital Signs Temp 98.6 F 04/23/18 17:37 Pulse 75 04/23/18 17:37 Resp 18 04/23/18 17:37 BP 163/73 H 04/23/18 17:37 Pulse Ox 98 04/23/18 10:00 - Labs Result Diagrams: 04/23/18 06:00 04/23/18 06:00 Labs: Laboratory Results - last 24 hr 04/23/18 04/23/18 04/23/18 07:29 10:57 16:23 POC Glucose (mg/dL) 263 H 202 H 158 H - Imaging and Cardiology CT scan - head Status: Image reviewed by me, Report reviewed by me (CT head: normal. ) Assessment & Plan - Assessment and Plan (Free Text) Assessment: MRI brain: reviewed by me shows several small acute strokes in the right midbrain, right and left basal ganglia, tiny in size. A/p: 52 yr odl woman well known to our service, who presented with small stroke sevreal months ago, now presents with new events that may be emboli from riight carotid stenosis. Plan: 1. CTA head and neck. 2. PLavix and aspirin. 3. Echo, 4. PT/St/Ot 5. dysphagia eval 6. PLease keep bp elevated to 180/90 7.lipid profile. 8. telemetry Thank you Dr. newberry
[2018-04-24 06:30] LABS: BASO # 0.07 K/mm3 (0.0-2.0); BASO % 1.3 % (0.0-3.0); EOS # 0.5 (0.0-0.7); EOS % 8.6 % (1.5-5.0); GRAN # 2.39 (1.4-6.5); GRAN % 45.9 % (50.0-68.0); HEMOGLOBIN 11.5 g/dL (12.0-16.0); LYMPH % 37.9 % (22.0-35.0); MEAN CELL VOLUME 85.4 fl (80.0-105.0); MEAN CORPUSCULAR HEMOGLOBIN 28.5 pg (25.0-35.0); MEAN CORPUSCULAR HGB CONC 33.3 g/dl (31.0-37.0); MEAN PLATELET VOLUME 11.2 fl (7.0-11.0); MONO # 0.3 (0.1-0.6); MONO % 6.3 % (1.0-6.0); RBC 4.04 10^6/uL (3.5-6.1); RED CELL DISTRIBUTION WIDTH 15.4 % (11.5-14.5); WHITE BLOOD COUNT 5.2 10^3/ul (4.5-11.0)
[2018-04-24 07:09] LABS: ALB/GLOB RATIO 1.6 (1.1-1.8); ALBUMIN 4.4 g/dL (3.0-4.8); CALCIUM 9.1 mg/dL (8.4-10.5)
[2018-04-24] MEDS: Pantoprazole 40 mg EC Tab PO SCH ×2 (07:14→10:14)
[2018-04-24] MEDS: Insulin Reg-MEDIUM-Coverage SC SCH ×4 (08:57→23:07)
--- NOTE | 2018-04-24 09:31 | MRI ---
Date of service: 04/23/2018 PROCEDURE: MRI BRAIN WITHOUT CONTRAST HISTORY: code stroke COMPARISON: None available. TECHNIQUE: Multiplanar, multisequence MR images of the brain were obtained without intravenous contrast enhancement. FINDINGS: HEMORRHAGE: None DWI: There is an acute infarct in the posterior limb of the internal capsule on the right side. This measures 6 x 12 mm. There is also an acute 3 mm infarct in the jerzy just to the right of midline. Image 10 series 3 There is also a recent small infarct in the left internal capsule which was seen on the previous study. BRAIN PARENCHYMA: No mass effect or edema. Chronic microvascular changes are seen in the periventricular white matter VENTRICLES: Unremarkable. No hydrocephalus. CRANIUM: Unremarkable. ORBITS: Grossly unremarkable. PARANASAL SINUSES/MASTOIDS: Clear VASCULAR SYSTEM: Skull base flow voids intact. OTHER FINDINGS: There is no preliminary report provided for comparison IMPRESSION: 6 x 12 mm acute infarct in the posterior limb of the internal capsule on the right. 3 mm acute infarct on the right side of the jerzy.
--- NOTE | 2018-04-24 09:56 | CT ---
Date of service: 04/24/2018 PROCEDURE: CT Angiography of the neck with contrast HISTORY: stroke COMPARISON: None. TECHNIQUE: Contiguous axial images of the neck were obtained from the level of the skull-base to the superior mediastinum in the arteriographic phase of enhancement. Coronal and sagittal reformats or also generated. IV contrast dose: 150 cc of Omni 350 Radiation Dose - DLP: 496 mGy-cm This CT exam was performed using one or more of the following dose reduction techniques: Automated exposure control, adjustment of the mA and/or kV according to patient size, and/or use of iterative reconstruction technique. FINDINGS: RIGHT CAROTID ARTERIES: Common Carotid Artery: Normal. Carotid Bifurcation: Normal. Internal Carotid Artery:Calcified plaque without stenosis External Carotid Artery (proximal branches): Normal. LEFT CAROTID ARTERIES: Common Carotid Artery: Normal. Carotid Bifurcation: Normal. Internal Carotid Artery:Calcified plaque without stenosis External Carotid Artery (proximal branches): Normal. VERTEBRAL ARTERIES: Right Vertebral Artery: Normal. Left Vertebral Artery: Normal. OTHER FINDINGS: None. IMPRESSION: No significant stenosis or occlusion. Calcified plaque in the internal carotids bilaterally PROCEDURE: CT Angiography of the Brain. HISTORY: stroke COMPARISON: None available. TECHNIQUE: CT angiography of the intracranial arteries was performed. Coronal and sagittal maximum intensity projection reformated images were generated. This CT exam was performed using one or more of the following dose reduction techniques: Automated exposure control, adjustment of the mA and/or kV according to patient size, and/or use of iterative reconstruction technique. FINDINGS: INTERNAL CEREBRAL ARTERIES: Unremarkable. The skull base, petrous, cavernous and supraclinoid segments are bilaterally widely patent. ANTERIOR CEREBRAL ARTERIES: Unremarkable. A1 and A2 segments are widely patent. Smaller distal branches unremarkable, as visualized. MIDDLE CEREBRAL ARTERIES: Unremarkable. M1 and M2 segments are widely patent. Perisylvian branches grossly symmetric. POSTERIOR CIRCULATION: Basilar Artery: Unremarkable. Distal Vertebral Arteries: Unremarkable. Posterior Cerebral Arteries: Unremarkable. Posterior Inferior Cerebellar Arteries: Unremarkable. ANEURYSM/ VASCULAR MALFORMATIONS: None. OTHER FINDINGS: None. IMPRESSION: Unremarkable CT Angiography of the Brain.
[2018-04-24] MEDS: Multivitamin Vitamin B Complex (Nephro-Vite) Tab PO SCH (10:13)
--- NOTE | 2018-04-24 12:51 | CP.PCM.PN ---
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 Patient states she woke up this morning at approximately 04: 30 with a left-sided facial droop and slurred speech. Patient notified her sisters, who called 911. Patient was last well prior to going to bed at 20:30 yesterday evening. Patient denies any chest pain, shortness of breath, abdominal pain, vomiting, urinary symptoms, or any other complaints. Patient regularly takes Plavix. MRI + for acute infarct R. internal capsule and R. jerzy CARDIAC HISTORY: Normal stress test 03/2017 History of diffuse non-obstructive CAD Surgical history Failed renal transplant: since removed 2014 L. arm AV graft for HD Objective - Vital Signs/Intake and Output Vital Signs (last 24 hours): Temp Pulse Resp BP Pulse Ox 98.7 F 80 20 195/88 H 99 04/24/18 12:00 04/24/18 12:00 04/24/18 12:00 04/24/18 12:00 04/24/18 06:00 Intake and Output: 04/24/18 04/24/18 06:59 18:59 Intake Total 0 Balance 0 - Medications Medications: Current Medications Amlodipine Besylate (Norvasc) 10 mg PO DAILY [facility] Aspirin (Aspirin Chewable) 81 mg PO DAILY [facility] Last Admin: 04/24/18 10:13 Dose: 81 mg Atorvastatin Calcium (Lipitor) 80 mg PO HS [facility] Last Admin: 04/23/18 22:23 Dose: 80 mg Clonidine HCl (Catapres) 0.1 mg PO Q8 [facility] Last Admin: 04/23/18 17:10 Dose: Not Given Clopidogrel Bisulfate (Plavix) 75 mg PO DAILY [facility] Last Admin: 04/24/18 10:13 Dose: 75 mg Insulin Detemir (Levemir) 10 unit SC HS [facility] Insulin Human Regular (Humulin R Med) 0 units SC ACHS [facility] PRN Reason: Protocol Last Admin: 04/24/18 12:11 Dose: 5 units Labetalol HCl (Trandate) 100 mg PO Q12 [facility] Losartan Potassium (Cozaar) 50 mg PO DAILY [facility] Pantoprazole Sodium (Protonix Ec Tab) 40 mg PO 0600 [facility] Last Admin: 04/24/18 10:14 Dose: 40 mg Vitamin B Complex/Vit C/Folic Acid (Nephro-Mila) 1 tab PO 0800 [facility] Last Admin: 04/24/18 10:13 Dose: 1 tab - Labs Labs: 04/24/18 05:20 04/24/18 05:20 PT 10.5 SECONDS (9.4-12.5) 04/23/18 06:00 INR 0.91 04/23/18 06:00 APTT 35.3 Seconds (25.1-36.5) 04/23/18 06:00
--- NOTE | 2018-04-24 12:55 | CP.PCM.CON ---
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 Patient states she woke up this morning at approximately 04: 30 with a left-sided facial droop and slurred speech. Patient notified her sisters, who called 911. Patient was last well prior to going to bed at 20:30 yesterday evening. Patient denies any chest pain, shortness of breath, abdominal pain, vomiting, urinary symptoms, or any other complaints. Patient regularly takes Plavix. MRI + for acute infarct R. internal capsule and R. jerzy CARDIAC HISTORY: Normal stress test 03/2017 History of diffuse non-obstructive CAD by cath 2014 CAD prior PCI Surgical history Failed renal transplant: since removed 2014 L. arm AV graft for HD Today: moves all extrem, A&O x3, L. facial droop and mild slurring of speech No CP or SOB No fevers or chills No N/V expected HD today. Past Patient History - Tetanus Immunizations Tetanus Immunization: Unknown - Past Medical History & Family History Past Medical History?: Yes - Past Social History Smoking Status: Former Smoker - CARDIAC Hx Cardiac Disorders: Yes Hx Congestive Heart Failure: Yes Hx Hypertension: Yes - PULMONARY Hx Chronic Obstructive Pulmonary Disease (COPD): Yes - NEUROLOGICAL HX Cerebrovascular Accident: Yes - HEENT Hx HEENT Problems: Yes Hx Blind: Yes (Right eye) - RENAL Hx Renal Failure: Yes - ENDOCRINE/METABOLIC Hx Diabetes Mellitus Type 1: Yes Hx Diabetes Mellitus Type 2: Yes - HEMATOLOGICAL/ONCOLOGICAL Hx Blood Disorders: No Hx AIDS: No - INTEGUMENTARY Hx Dermatological Problems: No - MUSCULOSKELETAL/RHEUMATOLOGICAL Hx Musculoskeletal Disorders: Yes Hx Falls: No Hx Unsteady Gait: Yes - GASTROINTESTINAL Hx Gastrointestinal Disorders: Yes Hx Gastroesophageal Reflux: Yes Other/Comment: Gastroparesis - GENITOURINARY/GYNECOLOGICAL Hx Genitourinary Disorders: Yes Other/Comment: Anuric - PSYCHIATRIC Hx Psychophysiologic Disorder: Yes Hx Anxiety: Yes Hx Depression: Yes Hx Substance Use: No - SURGICAL HISTORY Hx Angiogram: Yes (LLE) Hx Coronary Stent: Yes (X4 2006) Hx Kidney Transplant: Yes (2008, Reversed 2014) Hx Vascular Access Device: Yes (Right Forearm AV fistula) Other/Comment: Right arm Lipoma excision - ANESTHESIA Hx Anesthesia: Yes Hx Anesthesia Reactions: No Hx Malignant Hyperthermia: No Meds Allergies/Adverse Reactions: Allergies Allergy/AdvReac Type Severity Reaction Status Date / Time levofloxacin [From Levaquin] Allergy RASH Verified 03/31/18 18:01 Penicillins Allergy RASH Verified 03/31/18 18:01 acetaminophen AdvReac NAUSEA Verified 03/31/18 18:01 [From Tylenol PM] diphenhydramine HCl AdvReac NAUSEA Verified 03/31/18 18:01 [From Tylenol PM] gabapentin AdvReac NAUSEA Verified 03/31/18 18:01 heparin AdvReac NAUSEA Verified 03/31/18 18:01 Shellfish Allergy SWELLING Uncoded 03/31/18 18:01 - Medications Medications: Current Medications Amlodipine Besylate (Norvasc) 10 mg PO DAILY [facility] Aspirin (Aspirin Chewable) 81 mg PO DAILY [facility] Last Admin: 04/24/18 10:13 Dose: 81 mg Atorvastatin Calcium (Lipitor) 80 mg PO HS [facility] Last Admin: 04/23/18 22:23 Dose: 80 mg Clonidine HCl (Catapres) 0.1 mg PO Q8 [facility] Last Admin: 04/23/18 17:10 Dose: Not Given Clopidogrel Bisulfate (Plavix) 75 mg PO DAILY [facility] Last Admin: 04/24/18 10:13 Dose: 75 mg Insulin Detemir (Levemir) 10 unit SC HS [facility] Insulin Human Regular (Humulin R Med) 0 units SC ACHS [facility] PRN Reason: Protocol Last Admin: 04/24/18 12:11 Dose: 5 units Labetalol HCl (Trandate) 100 mg PO Q12 [facility] Losartan Potassium (Cozaar) 50 mg PO DAILY [facility] Pantoprazole Sodium (Protonix Ec Tab) 40 mg PO 0600 [facility] Last Admin: 04/24/18 10:14 Dose: 40 mg Vitamin B Complex/Vit C/Folic Acid (Nephro-Mila) 1 tab PO 0800 [facility] Last Admin: 04/24/18 10:13 Dose: 1 tab Physical Exam - Constitutional Appears: No Acute Distress - Head Exam Head Exam: ATRAUMATIC, NORMAL INSPECTION, NORMOCEPHALIC - Eye Exam Eye Exam: EOMI, Normal appearance - ENT Exam ENT Exam: Mucous Membranes Moist, Normal Oropharynx - Neck Exam Neck exam: Positive for: Normal Inspection - Respiratory Exam Respiratory Exam: Clear to Auscultation Bilateral, NORMAL BREATHING PATTERN. absent: Wheezes - Cardiovascular Exam Cardiovascular Exam: REGULAR RHYTHM, +S1, +S2. absent: Systolic Murmur - GI/Abdominal Exam GI & Abdominal Exam: Normal Bowel Sounds, Soft. absent: Tenderness - Extremities Exam Extremities exam: Positive for: normal inspection. Negative for: calf tenderness - Neurological Exam Neurological exam: Alert, Motor Sensory Deficit (L. facial droop, impaired speech), Oriented x3 Results - Vital Signs Recent Vital Signs: Last Vital Signs Temp 98.7 F 04/24/18 12:00 Pulse 80 04/24/18 12:00 Resp 20 04/24/18 12:00 BP 195/88 H 04/24/18 12:00 Pulse Ox 99 04/24/18 06:00 - Labs Result Diagrams: 04/24/18 05:20 04/24/18 05:20 Labs: Laboratory Results - last 24 hr 04/23/18 04/23/18 04/23/18 10:57 16:23 21:42 WBC RBC Hgb Hct MCV MCH MCHC RDW Plt Count MPV Gran % Lymph % (Auto) Fisher % (Auto) Eos % (Auto) Baso % (Auto) Gran # Lymph # (Auto) Fisher # (Auto) Eos # (Auto) Baso # (Auto) Sodium Potassium Chloride Carbon Dioxide Anion Gap BUN Creatinine Est GFR ( Amer) Est GFR (Non-Af Amer) POC Glucose (mg/dL) 202 H 158 H 180 H Random Glucose Calcium Phosphorus Magnesium Total Bilirubin AST ALT Alkaline Phosphatase Total Protein Albumin Globulin Albumin/Globulin Ratio TSH 3rd Generation 04/24/18 04/24/18 04/24/18 05:20 05:20 05:20 WBC 5.2 RBC 4.04 Hgb 11.5 L Hct 34.5 L MCV 85.4 MCH 28.5 MCHC 33.3 RDW 15.4 H Plt Count 182 MPV 11.2 H Gran % 45.9 L Lymph % (Auto) 37.9 H Fisher % (Auto) 6.3 H Eos % (Auto) 8.6 H Baso % (Auto) 1.3 Gran # 2.39 Lymph # (Auto) 2.0 Fisher # (Auto) 0.3 Eos # (Auto) 0.5 Baso # (Auto) 0.07 Sodium 138 Potassium 4.9 Chloride 99 Carbon Dioxide 24 Anion Gap 20 BUN 45 H Creatinine 11.1 H* D Est GFR ( Amer) 4 Est GFR (Non-Af Amer) 4 POC Glucose (mg/dL) Random Glucose 194 H Calcium 9.1 Phosphorus 5.2 H Magnesium 2.4 H Total Bilirubin 1.0 AST 18 ALT 13 Alkaline Phosphatase 234 H Total Protein 7.2 Albumin 4.4 Globulin 2.8 Albumin/Globulin Ratio 1.6 TSH 3rd Generation 1.77 04/24/18 07:09 WBC RBC Hgb Hct MCV MCH MCHC RDW Plt Count MPV Gran % Lymph % (Auto) Fisher % (Auto) Eos % (Auto) Baso % (Auto) Gran # Lymph # (Auto) Fisher # (Auto) Eos # (Auto) Baso # (Auto) Sodium Potassium Chloride Carbon Dioxide Anion Gap BUN Creatinine Est GFR ( Amer) Est GFR (Non-Af Amer) POC Glucose (mg/dL) 236 H Random Glucose Calcium Phosphorus Magnesium Total Bilirubin AST ALT Alkaline Phosphatase Total Protein Albumin Globulin Albumin/Globulin Ratio TSH 3rd Generation - EKG Data EKG Interpreted by: Myself Assessment & Plan - Assessment and Plan (Free Text) Assessment: Recurrence of acute CVA Atherosclertoic cardiovascular and cerebrovascular disease CAD chronic non-obstructive Chronic diastolic dysfunction Hypertensive heart disease ESRD on HD Failed renal transplant > EKG: NSR, LVH with strain; no active iscemia or volume overload > plan echo to eval LVEF and wall motion > Cont DAPT and high intensity statin > permissive HTN per neuro recc. > PT, HD > DVT prophylaxis > TELE shows no AFIB meds reviewed: Amlodipine Besylate (Norvasc) 10 mg PO DAILY [facility] Aspirin (Aspirin Chewable) 81 mg PO DAILY [facility] Last Admin: 04/24/18 10:13 Dose: 81 mg Atorvastatin Calcium (Lipitor) 80 mg PO HS [facility] Last Admin: 04/23/18 22:23 Dose: 80 mg Clonidine HCl (Catapres) 0.1 mg PO Q8 [facility] Last Admin: 04/23/18 17:10 Dose: Not Given Clopidogrel Bisulfate (Plavix) 75 mg PO DAILY [facility] Last Admin: 04/24/18 10:13 Dose: 75 mg Insulin Detemir (Levemir) 10 unit SC HS [facility] Insulin Human Regular (Humulin R Med) 0 units SC ACHS [facility] PRN Reason: Protocol Last Admin: 04/24/18 12:11 Dose: 5 units Labetalol HCl (Trandate) 100 mg PO Q12 [facility] Losartan Potassium (Cozaar) 50 mg PO DAILY [facility] Pantoprazole Sodium (Protonix Ec Tab) 40 mg PO 0600 [facility] Last Admin: 04/24/18 10:14 Dose: 40 mg Vitamin B Complex/Vit C/Folic Acid (Nephro-Mila) 1 tab PO 0800 [facility] Last Admin: 04/24/18 10:13 Dose: 1 tab
--- NOTE | 2018-04-24 14:45 | CP.PCM.PN ---
Subjective - Date & Time of Evaluation Date of Evaluation: 04/24/18 Time of Evaluation: 14:44 - Subjective Subjective: Nephrology Consultation Note Assessment: Stable Acute CVA Diabetic chronic Kidney Disease (E11.22) Hypertensive Chronic Kidney Disease (I12.0) End stage renal disease (N18.6) dependence on hemodialysis (Z99.2) (MWF) via AVF Anemia (D64.9), Hyperphosphatemia (E83.39), Secondary Hyperparathyroidism (E21.1 ), HTN (I12.0) hx of CVAs Plan: Will plan for HD today as ordered per MWF schedule. Continue with Nephrovite 1 tab/day. PRBC as needed for anemia. not on SANDEEP with dialysis as last Hb 11.3 Continue with phos binders, check phos level with next labs BP control with meds as ordered. Patient on RAAS yuliet as losartan. permissive HTN as per neuro Glycemic control, Dialysis consistent diet Further work up/management as per primary team Dose meds/antibiotics (if needed) for ESRD status. Avoid fleets enema/magnesium based laxatives. neurology following Thanks for allowing me to participate in care of your patient. Will follow patient with you. Please call if any Qs. had d/w team Dr Con Tejada Office: [phone] CC: slurred speech HPI: pt is a 52 F with hx of ESRD on HD MWF @ [facility], last HD yesterday, DM , HTN, CVA, Anemia, hyperlipidemia came with left facial droop and slurred speech since yesterday. she is admited and being managed for CVA. renal consult for ESRD management. pt feels same denies CP/SOB or nausea/vomitting ROS: Noted events overnight. Patients feels better Denies chest pain, palpitation, shortness of breath, leg swelling. besides facial drop, denies weakness in extremities All other negative h Physical Examination: General Appearance: Comfortable, in no acute respiratory distress, co-operative . Vitals reviewed and noted as below Head; Atraumatic, normocephalic ENT: no ulcers no thrush. Tongue is midline. Oropharynx: no rash or ulcers. EYES: Pupils are equal, round and reactive to light accommodation. Eye muscles and extraocular movement intact. Sclera is anicteric. Neck; supple no lymphadenopathy, no thyromegaly or bruit Lungs: Normal respiratory rate/effort. Breath sounds bilateral equal and clear Heart: Normal rate. s1s2 normal. No rub or gallop. Extremities: no edema. No varicose veins Neurological: Patient is alert, awake and oriented to person, place and time. left facial dropp with slurred speech improved Skin: Warm and dry. Normal turgor. No rash. Palpitation: Normal elasticity for age Abdomen: Abdomen is soft. Bowel sounds +. There is no abdominal tenderness, no guarding/rigidity or organomegaly Psych: normal insight and normal affect/mood MSK: no joint tenderness or swelling. Digits and nails normal, no deformity : kidney or bladder not palpable Access: AVF Labs/imaging reviewed. Past medical history, past surgical history, family history, social history, allergy reviewed and noted as below Family Hx: no hx of CKD. Non contributory Objective - Vital Signs/Intake and Output Vital Signs (last 24 hours): Temp Pulse Resp BP Pulse Ox 98.7 F 80 20 195/88 H 99 04/24/18 12:00 04/24/18 12:00 04/24/18 12:00 04/24/18 12:00 04/24/18 06:00 Intake and Output: 04/24/18 04/24/18 06:59 18:59 Intake Total 0 Balance 0 - Medications Medications: Current Medications Amlodipine Besylate (Norvasc) 10 mg PO DAILY [facility] Aspirin (Aspirin Chewable) 81 mg PO DAILY [facility] Last Admin: 04/24/18 10:13 Dose: 81 mg Atorvastatin Calcium (Lipitor) 80 mg PO HS [facility] Last Admin: 04/23/18 22:23 Dose: 80 mg Clonidine HCl (Catapres) 0.1 mg PO Q8 [facility] Last Admin: 04/23/18 17:10 Dose: Not Given Clopidogrel Bisulfate (Plavix) 75 mg PO DAILY [facility] Last Admin: 04/24/18 10:13 Dose: 75 mg Insulin Detemir (Levemir) 10 unit SC HS [facility] Insulin Human Regular (Humulin R Med) 0 units SC ACHS [facility] PRN Reason: Protocol Last Admin: 04/24/18 12:11 Dose: 5 units Labetalol HCl (Trandate) 100 mg PO Q12 [facility] Losartan Potassium (Cozaar) 50 mg PO DAILY [facility] Pantoprazole Sodium (Protonix Ec Tab) 40 mg PO 0600 [facility] Last Admin: 04/24/18 10:14 Dose: 40 mg Vitamin B Complex/Vit C/Folic Acid (Nephro-Mila) 1 tab PO 0800 [facility] Last Admin: 04/24/18 10:13 Dose: 1 tab - Labs Labs: 04/24/18 05:20 04/24/18 05:20 PT 10.5 SECONDS (9.4-12.5) 04/23/18 06:00 INR 0.91 04/23/18 06:00 APTT 35.3 Seconds (25.1-36.5) 04/23/18 06:00
--- NOTE | 2018-04-24 17:13 | CP.PCM.PN ---
<Perla Salcido - Last Filed: 04/24/18 17:10> Subjective - Date & Time of Evaluation Date of Evaluation: 04/24/18 Time of Evaluation: 09:45 - Subjective Subjective: PGY-1 Perla Salcido D.O. Medicine progress note for Dr. Osborn's service: Patient was seen and examined this morning. She still has L-sided facial droop with some slurred speech. She has no acute complaints. Patient denies any chest pain, shortness of breath, abdominal pain, vomiting, urinary symptoms, dizziness weakness, fever, or chills. Objective - Vital Signs/Intake and Output Vital Signs (last 24 hours): Temp Pulse Resp BP Pulse Ox 98.7 F 88 20 195/88 H 99 04/24/18 12:00 04/24/18 14:00 04/24/18 12:00 04/24/18 12:00 04/24/18 06:00 Intake and Output: 04/24/18 04/24/18 06:59 18:59 Intake Total 0 Balance 0 - Medications Medications: Current Medications Amlodipine Besylate (Norvasc) 10 mg PO DAILY [facility] Aspirin (Aspirin Chewable) 81 mg PO DAILY [facility] Last Admin: 04/24/18 10:13 Dose: 81 mg Atorvastatin Calcium (Lipitor) 80 mg PO HS [facility] Last Admin: 04/23/18 22:23 Dose: 80 mg Clonidine HCl (Catapres) 0.1 mg PO Q8 [facility] Last Admin: 04/23/18 17:10 Dose: Not Given Clopidogrel Bisulfate (Plavix) 75 mg PO DAILY [facility] Last Admin: 04/24/18 10:13 Dose: 75 mg Insulin Detemir (Levemir) 10 unit SC HS [facility] Insulin Human Regular (Humulin R Med) 0 units SC ACHS [facility] PRN Reason: Protocol Last Admin: 04/24/18 12:11 Dose: 5 units Labetalol HCl (Trandate) 100 mg PO Q12 [facility] Losartan Potassium (Cozaar) 50 mg PO DAILY [facility] Pantoprazole Sodium (Protonix Ec Tab) 40 mg PO 0600 [facility] Last Admin: 04/24/18 10:14 Dose: 40 mg Vitamin B Complex/Vit C/Folic Acid (Nephro-Mila) 1 tab PO 0800 [facility] Last Admin: 04/24/18 10:13 Dose: 1 tab - Labs Labs: 04/24/18 05:20 04/24/18 05:20 PT 10.5 SECONDS (9.4-12.5) 04/23/18 06:00 INR 0.91 04/23/18 06:00 APTT 35.3 Seconds (25.1-36.5) 04/23/18 06:00 - Constitutional Appears: Non-toxic, No Acute Distress - Head Exam Head Exam: ATRAUMATIC Additional comments: noticeable L-sided facial droop - Eye Exam Eye Exam: EOMI, PERRL - ENT Exam ENT Exam: Mucous Membranes Moist - Neck Exam Neck Exam: Normal Inspection - Respiratory Exam Respiratory Exam: Clear to Ausculation Bilateral, NORMAL BREATHING PATTERN - Cardiovascular Exam Cardiovascular Exam: REGULAR RHYTHM, +S1, +S2 - GI/Abdominal Exam GI & Abdominal Exam: Soft, Normal Bowel Sounds. absent: Tenderness - Rectal Exam Rectal Exam: Deferred - Extremities Exam Extremities Exam: Normal Inspection - Back Exam Back Exam: NORMAL INSPECTION - Neurological Exam Neurological Exam: Alert, Awake, Oriented x3 Neuro motor strength exam: Left Upper Extremity: 5, Right Upper Extremity: 5, Left Lower Extremity: 5, Right Lower Extremity: 5 - Psychiatric Exam Psychiatric exam: Normal Affect, Normal Mood - Skin Skin Exam: Dry, Normal Color, Warm Assessment and Plan - Assessment and Plan (Free Text) Assessment: 52 yo female with PMH includes ESRD on hemodialysis, hypertension, TIA/CVA, diabetes, dyslipidemia, and GERD, who presents complaining of left-sided facial droop. Found to have 2 acute CVAs. Need work-up on why recurrent CVAs. Plan: Acute ischemic CVAs- L-sided facial droop persistent - CT head: negative - MRI brain: 6 x 12 mm acute infarct in the posterior limb of the internal capsule on the right. 3 mm acute infarct on the right side of the jerzy. - CTA head and neck: negative - Recent echo on 03/30/18 showed EF of 65%, small PFO, grade 1 abnormal relaxation pattern - Carotid US on 03/29/18 showed bilateral 20-35% proximal ICA stenoses - Patient did not qualify for tPA due to ESRD - Lipid panel within normal limits - Lipitor 80mg QHS - ASA 81 mg PO daily - Plavix 75 mg PO daily - Hold hypertension medications to avoid hypoperfusion - PT/OT - Cardiology consulted (Abby)- repeat echo, continue high dose statin and dual anti-Plt therapy - Neurology consulted ([place])- permissive HTN ESRD on HD via AVF on MWF- h/o failed renal transplant - Nephrovite 1 tab PO daily - Neprhology consulted (Kerline)- avoid IVF HTN - Vitals q4hrs - Hold all Blood pressure medications to avoid hypoperfusion of possible infarct area T2DM - Hgba1c 8.7 - Hold Levemir 10 units HS- consider restart tomorrow based on BG - ISS- medium - POC blood glucose ACHS Hyperlipidemia - Lipid panel was within normal limits - Lipitor 80mg HS GERD - Protonix 40mg PO daily IVF: not indicated Diet: finely chopped solids/thin liquids GI ppx: Protonix 40mg PO daily VTE ppx: ASA-Plavix Code status: full code- f/u palliative Case discussed with attending, Dr. Osborn. <Rosalia Osborn R - Last Filed: 04/25/18 16:24> Objective - Vital Signs/Intake and Output Vital Signs (last 24 hours): Temp Pulse Resp BP Pulse Ox 98.2 F 90 20 193/98 H 98 04/25/18 12:00 04/25/18 12:00 04/25/18 12:00 04/25/18 12:00 04/25/18 06:00 Intake and Output: 04/25/18 04/25/18 06:59 18:59 Intake Total 400 Balance 400 - Medications Medications: Current Medications Acetaminophen (Tylenol 325mg Tab) 650 mg PO Q6H PRN PRN Reason: Pain, Mild (1-3) Amlodipine Besylate (Norvasc) 10 mg PO DAILY [facility] Aspirin (Aspirin Chewable) 81 mg PO DAILY [facility] Last Admin: 04/25/18 09:28 Dose: 81 mg Atorvastatin Calcium (Lipitor) 80 mg PO HS [facility] Last Admin: 04/24/18 23:06 Dose: 80 mg Clonidine HCl (Catapres) 0.1 mg PO Q8 [facility] Last Admin: 04/23/18 17:10 Dose: Not Given Clopidogrel Bisulfate (Plavix) 75 mg PO DAILY [facility] Last Admin: 04/25/18 09:28 Dose: 75 mg Insulin Detemir (Levemir) 10 unit SC HS [facility] Insulin Human Regular (Humulin R Med) 0 units SC ACHS [facility] PRN Reason: Protocol Last Admin: 04/25/18 11:32 Dose: 5 units Labetalol HCl (Trandate) 100 mg PO Q12 [facility] Losartan Potassium (Cozaar) 50 mg PO DAILY [facility] Pantoprazole Sodium (Protonix Ec Tab) 40 mg PO 0600 [facility] Last Admin: 04/25/18 06:20 Dose: 40 mg Vitamin B Complex/Vit C/Folic Acid (Nephro-Mila) 1 tab PO 0800 [facility] Last Admin: 04/25/18 07:59 Dose: 1 tab - Labs Labs: 04/25/18 06:00 04/25/18 06:00 PT 10.5 SECONDS (9.4-12.5) 04/23/18 06:00 INR 0.91 04/23/18 06:00 APTT 35.3 Seconds (25.1-36.5) 04/23/18 06:00 Attending/Attestation - Attestation I have personally seen and examined this patient.: Yes I have fully participated in the care of the patient.: Yes I have reviewed all pertinent clinical information, including history, physical exam and plan: Yes Notes (Text): Patient seen and examined by me at 9:45AM with resident 04/24/18. Case including HPI, physical exam, and assessment and plan discussed with resident. Agree with above with following additions/corrections. Patient is a 52-year-old female past medical history significant for end-stage renal disease on dialysis Friday/Friday/ Friday, hypertension, TIA/CVA, type 2 diabetes, diabetic neuropathy, coronary artery disease, COPD, dyslipidemia, and GERD the presented to the emergency room with left-sided facial droop and slurred speech. Patient states that she is feeling okay. Patient is asking what time she is going to dialysis. She feels her speech is slightly improved. No nausea or vomiting. Has abdominal pain but states it is chronic. No headahces, dizziness, or change in vision. No fevers or chills. No chest pain or shortness of breath. No diarrhea or constipation. Physical exam: General: Awake and alert lying in bed in no acute distress HEENT: Normocephalic atraumatic. Pupils equal reactive. No scleral icterus. Oropharynx is pink and moist. No pharyngeal erythema or exudate appreciated. Neck is supple. Cardiovascular: Normal rhythm. Normal S1, S2. Positive systolic murmur. No rubs or gallops appreciated Pulmonary: Normal respiratory effort. No rhonchi, rales or wheezing appreciated. Gastrointestinal: Soft, nondistended. Mild generalized abdominal pain. Positive bowel sounds all 4 quadrants, no guarding. No organomegaly appreciated. Musculoskeletal: Moves all extremities, no calf tenderness, no edema appreciated. Central nervous system: AAOx3. Positive left sided facial droop. Positive dysarthria. 5/5 muscle strength all extremities. No pronator drift. Dermatologic: Skin warm and dry. Positive AV fistula RUE. Assessment and plan: Patient is a 52-year-old female past medical history significant for end-stage renal disease on dialysis Friday/Friday/ Friday, hypertension, TIA/CVA, type 2 diabetes, diabetic neuropathy, coronary artery disease, COPD, dyslipidemia, and GERD the presented to the emergency room with left-sided facial droop and slurred speech. 1. Left-sided facial droop. Dysarthria. New CVA. MRI brain per radiologist shows 6 x 12 mm acute infarct in the posterior limb of the internal capsule on the right, 3 mm acute infarct on the right side of the jerzy. Continue neurology checks every 4 hours. PT/OT/speech and swallow evaluation and treatment. Continue aspirin, Plavix, and Lipitor. Continue to allow for permissive hypertension per neurology. Patient did not qualify for post TPA due to end- stage renal disease. Patient had carotid ultrasound on 03/29/2018 which showed bilateral 20-35% proximal ICA stenosis. 2-D echo on 03/30/2018 per product technician showed EF of 65%, possible small PFO, grade 1 abnormal relaxation pattern (see official read for full details). CT head per radiologist shows no acute findings. Neurology following, recommendations appreciated. Cardiology following, recommendations appreciated. Continue monitor on telemetry. 2. End-stage renal disease on dialysis. Continue dialysis Friday, Friday, Friday. Nephrology following, recommendations appreciated. Continue nephrovite. 3. Hypertension. Patient's blood pressure medications held for now to allow for permissive hypertension for CVA per neurology. To restart medications once cleared by neurology. 4. DM2. Continue insulin sliding scale. Continue to monitor Accu-Cheks. Will hold home Levemir for now. 5. CAD. Possible small PFO on recent echo. Continue ASA and plavix. Continue Lipitor. Continue Lipitor. Beta yuliet on hold for now to allow for permissive hypertension. Cardiology following, recommendations appreciated. Follow up 2-D echo. 6. Hyperlipidemia. Continue Lipitor 7. History of CVA. Continue aspirin, Plavix, and Lipitor. PT eval and treat. 8. History of COPD. Not in acute exacerbation. Monitor for now. 9. GERD. Continue Protonix. 10. GI/DVT prophylaxis. Protonix and SCDs. Can not place on heparin and lovenox secondary to allergies Case was discussed in detail with the patient regarding current diagnosis and treatment plan. All questions were answered.
--- NOTE | 2018-04-25 06:16 | CP.PCM.PN ---
<Perla Salcido - Last Filed: 04/25/18 15:24> Subjective - Date & Time of Evaluation Date of Evaluation: 04/25/18 Time of Evaluation: 07:00 - Subjective Subjective: PGY-1 Perla Salcido D.O. Medicine progress note for Dr. Osborn's service: Patient was seen and examined this morning. Her L-sided facial droop has slightly resolved. It is still evident with asymmetric smile. She is complaining of a LIRIANO. Patient denies any chest pain, shortness of breath, abdominal pain, vomiting, urinary symptoms, dizziness weakness, fever, or chills. Objective - Vital Signs/Intake and Output Vital Signs (last 24 hours): Temp Pulse Resp BP Pulse Ox 99.1 F 89 18 212/94 H 99 04/24/18 17:49 04/25/18 02:00 04/24/18 17:49 04/24/18 17:49 04/24/18 06:00 Intake and Output: 04/24/18 04/25/18 18:59 06:59 Intake Total 360 400 Output Total 0 Balance 360 400 - Medications Medications: Current Medications Amlodipine Besylate (Norvasc) 10 mg PO DAILY [facility] Aspirin (Aspirin Chewable) 81 mg PO DAILY [facility] Last Admin: 04/24/18 10:13 Dose: 81 mg Atorvastatin Calcium (Lipitor) 80 mg PO HS [facility] Last Admin: 04/24/18 23:06 Dose: 80 mg Clonidine HCl (Catapres) 0.1 mg PO Q8 [facility] Last Admin: 04/23/18 17:10 Dose: Not Given Clopidogrel Bisulfate (Plavix) 75 mg PO DAILY [facility] Last Admin: 04/24/18 10:13 Dose: 75 mg Insulin Detemir (Levemir) 10 unit SC HS [facility] Insulin Human Regular (Humulin R Med) 0 units SC [facility] PRN Reason: Protocol Last Admin: 04/24/18 23:07 Dose: Not Given Labetalol HCl (Trandate) 100 mg PO Q12 [facility] Losartan Potassium (Cozaar) 50 mg PO DAILY [facility] Pantoprazole Sodium (Protonix Ec Tab) 40 mg PO 0600 [facility] Last Admin: 04/24/18 10:14 Dose: 40 mg Vitamin B Complex/Vit C/Folic Acid (Nephro-Mila) 1 tab PO 0800 [facility] Last Admin: 04/24/18 10:13 Dose: 1 tab - Labs Labs: 04/24/18 05:20 04/24/18 05:20 PT 10.5 SECONDS (9.4-12.5) 04/23/18 06:00 INR 0.91 04/23/18 06:00 APTT 35.3 Seconds (25.1-36.5) 04/23/18 06:00 - Constitutional Appears: Non-toxic, No Acute Distress - Head Exam Head Exam: ATRAUMATIC Additional comments: noticeable L-sided facial droop - Eye Exam Eye Exam: EOMI - ENT Exam ENT Exam: Mucous Membranes Moist - Neck Exam Neck Exam: Normal Inspection - Respiratory Exam Respiratory Exam: Clear to Ausculation Bilateral, NORMAL BREATHING PATTERN - Cardiovascular Exam Cardiovascular Exam: REGULAR RHYTHM, +S1, +S2 - GI/Abdominal Exam GI & Abdominal Exam: Soft, Normal Bowel Sounds. absent: Tenderness - Rectal Exam Rectal Exam: Deferred - Extremities Exam Extremities Exam: Normal Capillary Refill, Normal Inspection - Back Exam Back Exam: NORMAL INSPECTION - Neurological Exam Neurological Exam: Alert, Awake, Oriented x3 Neuro motor strength exam: Left Upper Extremity: 5, Right Upper Extremity: 5, Left Lower Extremity: 5, Right Lower Extremity: 5 - Psychiatric Exam Psychiatric exam: Normal Affect, Normal Mood - Skin Skin Exam: Dry, Normal Color, Warm Assessment and Plan - Assessment and Plan (Free Text) Assessment: 52 yo female with PMH includes ESRD on hemodialysis, hypertension, TIA/CVA, diabetes, dyslipidemia, and GERD, who presents complaining of left-sided facial droop. Found to have 2 acute CVAs. Need work-up on why recurrent CVAs. Plan: Acute ischemic CVAs- L-sided facial droop persistent - CT head: negative - MRI brain: 6 x 12 mm acute infarct in the posterior limb of the internal capsule on the right. 3 mm acute infarct on the right side of the jerzy. - CTA head and neck: negative - Recent echo on 03/30/18 showed EF of 65%, small PFO, grade 1 abnormal relaxation pattern - Carotid US on 03/29/18 showed bilateral 20-35% proximal ICA stenoses - Patient did not qualify for tPA due to ESRD - Lipid panel within normal limits - Lipitor 80mg QHS - ASA 81 mg PO daily - Plavix 75 mg PO daily - Hold hypertension medications to avoid hypoperfusion - F/u echo bubble study - PT/OT - Cardiology consulted ([facility])- repeat echo, continue high dose statin and dual anti-Plt therapy - Neurology consulted ([place])- permissive HTN LIRIANO, acute - Tylenol 650 mg PO q6hrs PRN ESRD on HD via AVF on MWF- h/o failed renal transplant - Nephrovite 1 tab PO daily - Neprhology consulted ([facility])- avoid IVF HTN, chronic - Vitals q4hrs - Hold all Blood pressure medications to avoid hypoperfusion of possible infarct area T2DM, chronic - Hgba1c 8.7 - Levemir 10 units HS - ISS- medium - POC blood glucose ACHS Hyperlipidemia, chronic - Lipid panel was within normal limits - Lipitor 80mg HS GERD - Protonix 40mg PO daily IVF: not indicated Diet: finely chopped solids/thin liquids GI ppx: Protonix 40mg PO daily VTE ppx: ASA-Plavix Code status: full code- f/u palliative Case discussed with attending, Dr. Osborn. <Rosalia Osborn R - Last Filed: 04/25/18 16:30> Objective - Vital Signs/Intake and Output Vital Signs (last 24 hours): Temp Pulse Resp BP Pulse Ox 98.2 F 90 20 193/98 H 98 04/25/18 12:00 04/25/18 12:00 04/25/18 12:00 04/25/18 12:00 04/25/18 06:00 Intake and Output: 04/25/18 04/25/18 06:59 18:59 Intake Total 400 Balance 400 - Medications Medications: Current Medications Acetaminophen (Tylenol 325mg Tab) 650 mg PO Q6H PRN PRN Reason: Pain, Mild (1-3) Amlodipine Besylate (Norvasc) 10 mg PO DAILY [facility] Aspirin (Aspirin Chewable) 81 mg PO DAILY [facility] Last Admin: 04/25/18 09:28 Dose: 81 mg Atorvastatin Calcium (Lipitor) 80 mg PO HS [facility] Last Admin: 04/24/18 23:06 Dose: 80 mg Clonidine HCl (Catapres) 0.1 mg PO Q8 [facility] Last Admin: 04/23/18 17:10 Dose: Not Given Clopidogrel Bisulfate (Plavix) 75 mg PO DAILY [facility] Last Admin: 04/25/18 09:28 Dose: 75 mg Insulin Detemir (Levemir) 10 unit SC HS [facility] Insulin Human Regular (Humulin R Med) 0 units SC ACHS [facility] PRN Reason: Protocol Last Admin: 04/25/18 11:32 Dose: 5 units Labetalol HCl (Trandate) 100 mg PO Q12 [facility] Losartan Potassium (Cozaar) 50 mg PO DAILY [facility] Pantoprazole Sodium (Protonix Ec Tab) 40 mg PO 0600 [facility] Last Admin: 04/25/18 06:20 Dose: 40 mg Vitamin B Complex/Vit C/Folic Acid (Nephro-Mila) 1 tab PO 0800 [facility] Last Admin: 04/25/18 07:59 Dose: 1 tab - Labs Labs: 04/25/18 06:00 04/25/18 06:00 PT 10.5 SECONDS (9.4-12.5) 04/23/18 06:00 INR 0.91 04/23/18 06:00 APTT 35.3 Seconds (25.1-36.5) 04/23/18 06:00 Attending/Attestation - Attestation I have personally seen and examined this patient.: Yes I have fully participated in the care of the patient.: Yes I have reviewed all pertinent clinical information, including history, physical exam and plan: Yes Notes (Text): Patient seen and examined by me at 8:35AM with resident. Case including HPI, physical exam, and assessment and plan discussed with resident. Agree with above with following additions/corrections. Patient is a 52-year-old female past medical history significant for end-stage renal disease on dialysis Friday/Friday/ Friday, hypertension, TIA/CVA, type 2 diabetes, diabetic neuropathy, coronary artery disease, COPD, dyslipidemia, and GERD the presented to the emergency room with left-sided facial droop and slurred speech. Patient states that she is feeling okay. Patient state she is having a headache this morning. States she feels like "my tongue is too big for my mouth." Patient is tolerating dysphagia diet. She feels her speech is a little better. No nausea or vomiting. Has chronic abdominal pain. No dizziness or change in vision. No fevers or chills. No chest pain or shortness of breath. No diarrhea or constipation. Physical exam: General: Awake and alert lying in bed in no acute distress HEENT: Normocephalic atraumatic. Pupils equal reactive. No scleral icterus. Oropharynx is pink and moist. No pharyngeal erythema or exudate appreciated. Neck is supple. Cardiovascular: Normal rhythm. Normal S1, S2. Positive systolic murmur. No rubs or gallops appreciated Pulmonary: Normal respiratory effort. No rhonchi, rales or wheezing appreciated. Gastrointestinal: Soft, nondistended. Mild generalized abdominal pain. Positive bowel sounds all 4 quadrants, no guarding. No organomegaly appreciated. Musculoskeletal: Moves all extremities, no calf tenderness, no edema appreciated. Central nervous system: AAOx3. Positive left sided facial droop. Positive dysarthria. 5/5 muscle strength all extremities. No pronator drift. Dermatologic: Skin warm and dry. Positive AV fistula RUE. Assessment and plan: Patient is a 52-year-old female past medical history significant for end-stage renal disease on dialysis Friday/Friday/ Friday, hypertension, TIA/CVA, type 2 diabetes, diabetic neuropathy, coronary artery disease, COPD, dyslipidemia, and GERD the presented to the emergency room with left-sided facial droop and slurred speech. 1. Left-sided facial droop. Dysarthria. New CVA. MRI brain per radiologist shows 6 x 12 mm acute infarct in the posterior limb of the internal capsule on the right, 3 mm acute infarct on the right side of the jerzy. Continue neuro checks. Continue PT/OT/speech and swallow. Continue aspirin, Plavix, and Lipitor. Continue to allow for permissive hypertension per neurology. Follow up 2D echo with bubble study. Patient did not qualify for post TPA due to end- stage renal disease. Patient had carotid ultrasound on 03/29/2018 which showed bilateral 20-35% proximal ICA stenosis. 2-D echo on 03/30/2018 per toucher up showed EF of 65%, possible small PFO, grade 1 abnormal relaxation pattern (see official read for full details). CT head per radiologist shows no acute findings. Neurology following, recommendations appreciated. Cardiology following, recommendations appreciated. Continue monitor on telemetry. 2. End-stage renal disease on dialysis. Continue dialysis Friday, Friday, Friday. Nephrology following, recommendations appreciated. Continue nephrovite. 3. Hypertension. Patient's blood pressure medications held for now to allow for permissive hypertension for CVA per neurology. Restart medications once cleared by neurology. 4. DM2. Continue insulin sliding scale. Continue to monitor Accu-Cheks. Patient is eating. Will restart home Levemir. 5. CAD. Possible small PFO on recent echo. Follow up 2D echo with bubble study. Continue ASA and plavix. Continue Lipitor. Beta yuliet on hold for now to allow for permissive hypertension. Cardiology following, recommendations appreciated. 7. History of CVA. Continue aspirin, Plavix, and Lipitor. PT eval and treat. 8. History of COPD. Not in acute exacerbation. Monitor for now. 9. GERD. Continue Protonix. 10. GI/DVT prophylaxis. Protonix and SCDs. Can not place on heparin secondary to allergies Case was discussed in detail with the patient regarding current diagnosis and treatment plan. All questions were answered.
[2018-04-25] MEDS: Pantoprazole 40 mg EC Tab PO SCH (06:20)
[2018-04-25 06:46] LABS: BASO # 0.06 K/mm3 (0.0-2.0); EOS # 0.3 (0.0-0.7); EOS % 5.6 % (1.5-5.0); GRAN # 3.23 (1.4-6.5); GRAN % 53.2 % (50.0-68.0); HEMOGLOBIN 12.1 g/dL (12.0-16.0); LYMPH % 33.1 % (22.0-35.0); MEAN CELL VOLUME 85.3 fl (80.0-105.0); MEAN CORPUSCULAR HEMOGLOBIN 28.1 pg (25.0-35.0); MEAN PLATELET VOLUME 11.1 fl (7.0-11.0); MONO # 0.4 (0.1-0.6); MONO % 7.1 % (1.0-6.0); RBC 4.3 10^6/uL (3.5-6.1); RED CELL DISTRIBUTION WIDTH 15.6 % (11.5-14.5); WHITE BLOOD COUNT 6.1 10^3/ul (4.5-11.0)
[2018-04-25 07:42] LABS: ALB/GLOB RATIO 1.6 (1.1-1.8); ALBUMIN 4.8 g/dL (3.0-4.8); CALCIUM 9.4 mg/dL (8.4-10.5)
[2018-04-25] MEDS: Insulin Reg-MEDIUM-Coverage SC SCH ×4 (07:58→22:08)
[2018-04-25] MEDS: Multivitamin Vitamin B Complex (Nephro-Vite) Tab PO SCH (07:59)
--- NOTE | 2018-04-25 13:11 | CP.PCM.PN ---
Subjective - Date & Time of Evaluation Date of Evaluation: 04/25/18 Time of Evaluation: 13:08 - Subjective Subjective: Nephrology Consultation Note Assessment: Stable Acute CVA Diabetic chronic Kidney Disease (E11.22) Hypertensive Chronic Kidney Disease (I12.0) End stage renal disease (N18.6) dependence on hemodialysis (Z99.2) (MWF) via AVF Anemia (D64.9), Hyperphosphatemia (E83.39), Secondary Hyperparathyroidism (E21.1 ), HTN (I12.0) hx of CVAs Plan: HD MWF. Continue with Nephrovite 1 tab/day. Holding SANDEEP Continue with phos binders, phos at goal still permissive HTN per neuro awaiting for reduction in goal and can restart and titrate bp meds Glycemic control, Dialysis consistent diet S: seen and examined, slurred speech still eating breakfast Physical Examination: General Appearance: Comfortable, in no acute respiratory distress, co-operative . Vitals reviewed and noted as below Head; Atraumatic, normocephalic ENT: no ulcers no thrush. Oropharynx: no rash or ulcers. EYES: Pupils are equal and anicteric. Neck; supple no lymphadenopathy, no thyromegaly or bruit Lungs: Normal respiratory rate/effort. Breath sounds bilateral equal and clear Heart: Normal rate. s1s2 normal. No rub or gallop. Extremities: no edema. No varicose veins Neurological: Patient is alert, awake and oriented to person, place and time. left facial droop with slurred speech Skin: Warm and dry. Normal turgor. No rash. Palpitation: Normal elasticity for age Abdomen: Abdomen is soft. Bowel sounds +. There is no abdominal tenderness, no guarding/rigidity or organomegaly Psych: normal affect MSK: no joint tenderness or swelling. Digits and nails normal, no deformity : kidney or bladder not palpable Access: AVF Objective - Vital Signs/Intake and Output Vital Signs (last 24 hours): Temp Pulse Resp BP Pulse Ox 98.2 F 90 20 193/98 H 98 04/25/18 12:00 04/25/18 12:00 04/25/18 12:00 04/25/18 12:00 04/25/18 06:00 Intake and Output: 04/25/18 04/25/18 06:59 18:59 Intake Total 400 Balance 400 - Medications Medications: Current Medications Acetaminophen (Tylenol 325mg Tab) 650 mg PO Q6H PRN PRN Reason: Pain, Mild (1-3) Amlodipine Besylate (Norvasc) 10 mg PO DAILY [facility] Aspirin (Aspirin Chewable) 81 mg PO DAILY [facility] Last Admin: 04/25/18 09:28 Dose: 81 mg Atorvastatin Calcium (Lipitor) 80 mg PO HS [facility] Last Admin: 04/24/18 23:06 Dose: 80 mg Clonidine HCl (Catapres) 0.1 mg PO Q8 [facility] Last Admin: 04/23/18 17:10 Dose: Not Given Clopidogrel Bisulfate (Plavix) 75 mg PO DAILY [facility] Last Admin: 04/25/18 09:28 Dose: 75 mg Insulin Detemir (Levemir) 10 unit SC HS [facility] Insulin Human Regular (Humulin R Med) 0 units SC ACHS [facility] PRN Reason: Protocol Last Admin: 04/25/18 11:32 Dose: 5 units Labetalol HCl (Trandate) 100 mg PO Q12 [facility] Losartan Potassium (Cozaar) 50 mg PO DAILY [facility] Pantoprazole Sodium (Protonix Ec Tab) 40 mg PO 0600 [facility] Last Admin: 04/25/18 06:20 Dose: 40 mg Vitamin B Complex/Vit C/Folic Acid (Nephro-Mila) 1 tab PO 0800 [facility] Last Admin: 04/25/18 07:59 Dose: 1 tab - Labs Labs: 04/25/18 06:00 04/25/18 06:00 PT 10.5 SECONDS (9.4-12.5) 04/23/18 06:00 INR 0.91 04/23/18 06:00 APTT 35.3 Seconds (25.1-36.5) 04/23/18 06:00
--- NOTE | 2018-04-25 20:26 | CARD ---
APPROVED REPORT Date of service: 04/25/2018 EXAM: Two-dimensional and M-mode echocardiogram with Doppler and color Doppler. INDICATION R/O PFO, PER NEUROLOGY LOYA 2D DIMENSIONS IVSd2.4 (0.7-1.1cm)LVDd3.0 (3.9-5.9cm) PWd2.0 (0.7-1.1cm)LVDs2.1 (2.5-4.0cm) FS (%) 30.4 %LVEF (%)59.6 (>50%) M-Mode DIMENSIONS Left Atrium (MM)4.60 (2.5-4.0cm)Aortic Root3.20 (2.2-3.7cm) Aortic Cusp Exc.2.00 (1.5-2.0cm) Aortic Valve AoV Peak Ghldyxvm009.0cm/Nadine Peak GR.22mmHg Mitral Valve MV E Ztbgyalo90.4cm/sMV A Yewiuxmu976.0cm/sE/A ratio0.6 TDI Lateral E' Peak V7.70cm/sMedial E' Peak V3.51cm/sE/Lateral E'11.5 E/Medial E'25.2 Tricuspid Valve TR Peak Typycfop322gn/sRAP [id number] Peak Gr.25mmHg [id number] LEFT VENTRICLE The left ventricle is normal size. There is severe concentric left ventricular hypertrophy. Proximal septal thickening is noted. The left ventricular function is normal.EF-60-65% There is normal LV segmental wall motion. Transmitral Doppler flow pattern is Grade III-reversible restrictive diastolic dysfunction. No left ventricle thrombus noted on this study. There is no ventricular septal defect visualized. There is no left ventricular aneurysm. There is no mass noted in the left ventricle. RIGHT VENTRICLE The right ventricle is normal size. There is normal right ventricular wall thickness. The right ventricular systolic function is normal. ATRIA The left atrium is mildly dilated. The right atrium size is normal. The interatrial septum is intact with no evidence for an atrial septal defect. AORTIC VALVE The aortic valve is calcified and displays decreased opening. The aortic valve is moderately sclerotic. There is trace aortic regurgitation. There is mild valvular aortic stenosis. There is no aortic valvular vegetation. MITRAL VALVE The mitral valve is calcified and displays decreased opening. Mitral annular calcification is severe. Mitral regurgitation is trace. There is mild mitral valve stenosis. There is no evidence of mitral valve prolapse. TRICUSPID VALVE The tricuspid valve leaflets are thickened , but open well. There is mild tricuspid regurgitation.RVSP-35 mmofHg. There is no tricuspid valve stenosis. There is no tricuspid valve prolapse or vegetation. PULMONIC VALVE The pulmonary valve is normal in structure. There is mild pulmonic valvular regurgitation. There is no pulmonic valvular stenosis. GREAT VESSELS The aortic root is normal in size. The ascending aorta is normal in size. The pulmonary artery is normal. The IVC is normal in size and collapses >50% with inspiration. PERICARDIAL EFFUSION There is no pleural effusion. There is no pericardial effusion. <Conclusion> The left ventricle is normal size. There is severe concentric left ventricular hypertrophy. Proximal septal thickening is noted. The left ventricular function is normal.EF-60-65% There is trace aortic regurgitation. There is mild valvular aortic stenosis. Mitral regurgitation is trace. There is mild mitral valve stenosis. There is mild tricuspid regurgitation.RVSP-35 mmofHg. There is mild pulmonic valvular regurgitation. The IVC is normal in size and collapses >50% with inspiration. There is no pericardial effusion.
[2018-04-25] MEDS: Insulin Detemir 100 units/ml Vial (Levemir) SC SCH (22:11)
[2018-04-26] MEDS: Pantoprazole 40 mg EC Tab PO SCH (05:29)
--- NOTE | 2018-04-26 06:32 | CP.PCM.PN ---
Subjective - Date & Time of Evaluation Date of Evaluation: 04/26/18 Time of Evaluation: 09:10 - Subjective Subjective: PGY-1 Perla Salcido D.O. Medicine progress note for Dr. Osborn's service: Patient was seen and examined this morning. No events reported over night. Patient's LIRIANO has resolved. Patient is concerned about her slurred speech. L facial droop seems to be as evident as on admission. Speech is slurred but intelligible. Patient denies any chest pain, shortness of breath, abdominal pain , vomiting, urinary symptoms, dizziness weakness, fever, or chills. Objective - Vital Signs/Intake and Output Vital Signs (last 24 hours): Temp Pulse Resp BP Pulse Ox 98.0 F 88 19 182/96 H 97 04/26/18 06:00 04/26/18 06:00 04/26/18 06:00 04/26/18 06:00 04/26/18 06:00 Intake and Output: 04/25/18 04/26/18 18:59 06:59 Intake Total 1080 Output Total 0 Balance 1080 - Medications Medications: Current Medications Acetaminophen (Tylenol 325mg Tab) 650 mg PO Q6H PRN PRN Reason: Pain, Mild (1-3) Last Admin: 04/25/18 22:07 Dose: 650 mg Amlodipine Besylate (Norvasc) 10 mg PO DAILY [facility] Aspirin (Aspirin Chewable) 81 mg PO DAILY [facility] Last Admin: 04/25/18 09:28 Dose: 81 mg Atorvastatin Calcium (Lipitor) 80 mg PO HS [facility] Last Admin: 04/25/18 22:08 Dose: 80 mg Clonidine HCl (Catapres) 0.1 mg PO Q8 [facility] Last Admin: 04/26/18 05:29 Dose: 0.1 mg Clopidogrel Bisulfate (Plavix) 75 mg PO DAILY [facility] Last Admin: 04/25/18 09:28 Dose: 75 mg Insulin Detemir (Levemir) 10 unit SC HS [facility] Last Admin: 04/25/18 22:11 Dose: 10 units Insulin Human Regular (Humulin R Med) 0 units SC ACHS [facility] PRN Reason: Protocol Last Admin: 04/25/18 22:08 Dose: Not Given Labetalol HCl (Trandate) 100 mg PO Q12 [facility] Losartan Potassium (Cozaar) 50 mg PO DAILY [facility] Pantoprazole Sodium (Protonix Ec Tab) 40 mg PO 0600 [facility] Last Admin: 04/26/18 05:29 Dose: 40 mg Vitamin B Complex/Vit C/Folic Acid (Nephro-Mila) 1 tab PO 0800 [facility] Last Admin: 04/25/18 07:59 Dose: 1 tab - Labs Labs: 04/25/18 06:00 04/25/18 06:00 PT 10.5 SECONDS (9.4-12.5) 04/23/18 06:00 INR 0.91 04/23/18 06:00 APTT 35.3 Seconds (25.1-36.5) 04/23/18 06:00 - Constitutional Appears: Non-toxic, No Acute Distress - Head Exam Head Exam: ATRAUMATIC, NORMAL INSPECTION Additional comments: L-sided facial droop - Eye Exam Eye Exam: EOMI, Normal appearance, PERRL - ENT Exam ENT Exam: Mucous Membranes Moist, Normal Exam - Neck Exam Neck Exam: Normal Inspection - Respiratory Exam Respiratory Exam: Clear to Ausculation Bilateral, NORMAL BREATHING PATTERN - Cardiovascular Exam Cardiovascular Exam: REGULAR RHYTHM, +S1, +S2 - GI/Abdominal Exam GI & Abdominal Exam: Soft, Normal Bowel Sounds. absent: Tenderness - Rectal Exam Rectal Exam: Deferred - Extremities Exam Extremities Exam: Normal Capillary Refill, Normal Inspection - Back Exam Back Exam: NORMAL INSPECTION - Neurological Exam Neurological Exam: Alert, Awake, Oriented x3 - Psychiatric Exam Psychiatric exam: Normal Affect, Normal Mood - Skin Skin Exam: Dry, Normal Color, Warm Assessment and Plan - Assessment and Plan (Free Text) Assessment: 52 yo female with PMH includes ESRD on hemodialysis, hypertension, TIA/CVA, diabetes, dyslipidemia, and GERD, who presents complaining of left-sided facial droop. Found to have 2 acute CVAs. Need work-up on why recurrent CVAs. Plan: Acute ischemic CVAs- L-sided facial droop persistent - Patient did not qualify for tPA due to ESRD - CT head: negative - MRI brain: 6 x 12 mm acute infarct in the posterior limb of the internal capsule on the right. 3 mm acute infarct on the right side of the jerzy. - Carotid US on 03/29/18 showed bilateral 20-35% proximal ICA stenoses - CTA head and neck: negative - Recent echo on 03/30/18 showed EF of 65%, small PFO, grade 1 abnormal relaxation pattern - Echo bubble study: EF 60-65%, severe LVH, no mention of PFO - Lipid panel within normal limits - Lipitor 80mg QHS - ASA 81 mg PO daily - Plavix 75 mg PO daily - PT/OT/ST- rec acute rehab - Cardiology consulted ([facility])- continue high dose statin and dual anti- Plt therapy - Neurology consulted ([place])- permissive HTN x48hrs LIRIANO, acute - Tylenol 650 mg PO q6hrs PRN ESRD on HD via AVF on MWF- h/o failed renal transplant - Nephrovite 1 tab PO daily - Neprhology consulted ([facility])- avoid IVF HTN, chronic - Vitals q4hrs - Restart antihypertensive meds - Norvasc 10 mg PO daily - Clonidine 0.1 mg PO q8hrs - Labetalol 100 mg PO q12hrs - Losartan 50 mg PO daily T2DM, chronic - Hgba1c 8.7 - Levemir 10 units QHS - ISS- medium - POC blood glucose ACHS Hyperlipidemia, chronic - Lipid panel was within normal limits - Lipitor 80mg HS GERD - Protonix 40mg PO daily IVF: not indicated Diet: finely chopped solids/thin liquids GI ppx: Protonix 40mg PO daily VTE ppx: ASA-Plavix Code status: full code- f/u palliative Case discussed with attending, Dr. Osborn.
[2018-04-26 07:32] LABS: BASO # 0.08 K/mm3 (0.0-2.0); BASO % 1.3 % (0.0-3.0); EOS # 0.4 (0.0-0.7); EOS % 6.1 % (1.5-5.0); GRAN # 2.99 (1.4-6.5); GRAN % 49.3 % (50.0-68.0); LYMPH % 33.3 % (22.0-35.0); MEAN CELL VOLUME 85.2 fl (80.0-105.0); MEAN CORPUSCULAR HEMOGLOBIN 28.2 pg (25.0-35.0); MEAN CORPUSCULAR HGB CONC 33.1 g/dl (31.0-37.0); MEAN PLATELET VOLUME 11.1 fl (7.0-11.0); MONO # 0.6 (0.1-0.6); RBC 4.25 10^6/uL (3.5-6.1); RED CELL DISTRIBUTION WIDTH 15.8 % (11.5-14.5); WHITE BLOOD COUNT 6.1 10^3/ul (4.5-11.0)
[2018-04-26 07:42] LABS: ALB/GLOB RATIO 1.6 (1.1-1.8); ALBUMIN 4.8 g/dL (3.0-4.8); CALCIUM 9.5 mg/dL (8.4-10.5)
[2018-04-26] MEDS: Insulin Reg-MEDIUM-Coverage SC SCH ×4 (08:34→22:03)
[2018-04-26] MEDS: Multivitamin Vitamin B Complex (Nephro-Vite) Tab PO SCH (10:19)
[2018-04-26 17:36] VITALS: RESP 18
[2018-04-26] MEDS: Insulin Detemir 100 units/ml Vial (Levemir) SC SCH (22:03)
[2018-04-27] MEDS: Pantoprazole 40 mg EC Tab PO SCH (05:57)
[2018-04-27 06:26] VITALS: TEMP 98.1; O2SAT 100
[2018-04-27 06:50] LABS: BASO # 0.06 K/mm3 (0.0-2.0); BASO % 1.1 % (0.0-3.0); EOS # 0.4 (0.0-0.7); EOS % 7.1 % (1.5-5.0); GRAN % 37.7 % (50.0-68.0); HEMOGLOBIN 11.9 g/dL (12.0-16.0); LYMPH # 2.4 (1.2-3.4); LYMPH % 45.5 % (22.0-35.0); MEAN CELL VOLUME 85.4 fl (80.0-105.0); MEAN CORPUSCULAR HEMOGLOBIN 28.9 pg (25.0-35.0); MEAN CORPUSCULAR HGB CONC 33.8 g/dl (31.0-37.0); MEAN PLATELET VOLUME 10.9 fl (7.0-11.0); MONO # 0.5 (0.1-0.6); MONO % 8.6 % (1.0-6.0); RBC 4.12 10^6/uL (3.5-6.1); RED CELL DISTRIBUTION WIDTH 15.8 % (11.5-14.5); WHITE BLOOD COUNT 5.3 10^3/ul (4.5-11.0)
[2018-04-27 07:25] LABS: ALB/GLOB RATIO 1.5 (1.1-1.8); ALBUMIN 4.6 g/dL (3.0-4.8); CALCIUM 9.1 mg/dL (8.4-10.5)
[2018-04-27] MEDS: Insulin Reg-MEDIUM-Coverage SC SCH ×3 (09:04→17:29)
[2018-04-27] MEDS: Multivitamin Vitamin B Complex (Nephro-Vite) Tab PO SCH (14:13)
[2018-04-27 14:20] VITALS: BP 142/69; PULSE 89
--- NOTE | 2018-04-27 14:42 | CP.PCM.DIS ---
<Perla Salcido - Last Filed: 04/27/18 20:17> Provider - Provider Date of Admission: 04/23/18 06:50 Attending physician: Rosalia Osborn DO Primary care physician: Dr. Mcgowan Consults: neurology, nephrology, cardiology Time Spent in preparation of Discharge (in minutes): 45 Diagnosis - Discharge Diagnosis (1) CVA (cerebral vascular accident) Status: Acute Priority: High (2) ESRD (end stage renal disease) on dialysis Status: Chronic Priority: Medium (3) HTN (hypertension) Status: Chronic Priority: Medium (4) DM type 2 (diabetes mellitus, type 2) Status: Chronic Priority: Medium Hospital Course - Lab Results Lab Results: Most Recent Lab Values WBC 5.3 10^3/ul (4.5-11.0) 04/27/18 05:30 RBC 4.12 10^6/uL (3.5-6.1) 04/27/18 05:30 Hgb 11.9 g/dL (12.0-16.0) L 04/27/18 05:30 Hct 35.2 % (36.0-48.0) L 04/27/18 05:30 MCV 85.4 fl (80.0-105.0) 04/27/18 05:30 MCH 28.9 pg (25.0-35.0) 04/27/18 05:30 MCHC 33.8 g/dl (31.0-37.0) 04/27/18 05:30 RDW 15.8 % (11.5-14.5) H 04/27/18 05:30 Plt Count 223 10^3/uL (120.0-450.0) 04/27/18 05:30 MPV 10.9 fl (7.0-11.0) 04/27/18 05:30 Gran % 37.7 % (50.0-68.0) L 04/27/18 05:30 Lymph % (Auto) 45.5 % (22.0-35.0) H 04/27/18 05:30 Radford % (Auto) 8.6 % (1.0-6.0) H 04/27/18 05:30 Eos % (Auto) 7.1 % (1.5-5.0) H 04/27/18 05:30 Baso % (Auto) 1.1 % (0.0-3.0) 04/27/18 05:30 Gran # 2.00 (1.4-6.5) 04/27/18 05:30 Lymph # (Auto) 2.4 (1.2-3.4) 04/27/18 05:30 Radford # (Auto) 0.5 (0.1-0.6) 04/27/18 05:30 Eos # (Auto) 0.4 (0.0-0.7) 04/27/18 05:30 Baso # (Auto) 0.06 K/mm3 (0.0-2.0) 04/27/18 05:30 PT 10.5 SECONDS (9.4-12.5) 04/23/18 06:00 INR 0.91 04/23/18 06:00 APTT 35.3 Seconds (25.1-36.5) 04/23/18 06:00 Sodium 138 mmol/L (132-148) 04/27/18 05:30 Potassium 5.3 mmol/L (3.6-5.0) H 04/27/18 05:30 Chloride 97 mmol/L (98-107) L 04/27/18 05:30 Carbon Dioxide 24 mmol/L (21-33) 04/27/18 05:30 Anion Gap 22 (10-20) H 04/27/18 05:30 BUN 57 mg/dL (7-21) H 04/27/18 05:30 Creatinine 14.1 mg/dl (0.7-1.2) H* 04/27/18 05:30 Est GFR ( Amer) 3 04/27/18 05:30 Est GFR (Non-Af Amer) 3 04/27/18 05:30 POC Glucose (mg/dL) 160 mg/dL (65-110) H 04/27/18 07:22 Random Glucose 153 mg/dL (70-110) H 04/27/18 05:30 Hemoglobin A1c 8.7 % (4.2-6.5) H 04/23/18 06:00 Calcium 9.1 mg/dL (8.4-10.5) 04/27/18 05:30 Phosphorus 6.7 mg/dL (2.5-4.5) H 04/27/18 05:30 Magnesium 2.6 mg/dL (1.7-2.2) H 04/27/18 05:30 Total Bilirubin 0.8 mg/dL (0.2-1.3) 04/27/18 05:30 AST 21 U/L (14-36) 04/27/18 05:30 ALT 13 U/L (7-56) 04/27/18 05:30 Alkaline Phosphatase 218 U/L (38-126) H 04/27/18 05:30 Troponin I 0.03 ng/mL D 04/23/18 06:00 Total Protein 7.6 g/dL (5.8-8.3) 04/27/18 05:30 Albumin 4.6 g/dL (3.0-4.8) 04/27/18 05:30 Globulin 3.0 gm/dL 04/27/18 05:30 Albumin/Globulin Ratio 1.5 (1.1-1.8) 04/27/18 05:30 Triglycerides 91 mg/dL (35-160) 04/23/18 06:00 Cholesterol 148 mg/dL (130-200) 04/23/18 06:00 LDL Cholesterol Direct 57 mg/dL (0-129) 04/23/18 06:00 HDL Cholesterol 46 mg/dL (29-60) 04/23/18 06:00 TSH 3rd Generation 1.77 mIU/mL (0.46-4.68) 04/24/18 05:20 Blood Type O POSITIVE 04/23/18 06:00 Antibody Screen Negative 04/23/18 06:00 BBK History Checked Patient has bt 04/23/18 06:00 - Hospital Course Hospital Course: 52 yo female with PMH includes ESRD on hemodialysis (Friday/Friday/Friday) last received yesterday, hypertension, TIA/CVA, diabetes, dyslipidemia, and GERD , who presents to the Emergency department brought in by ALS complaining of left -sided facial droop. Patient states last night she was talking on the phone and was told that she was slurring her speech and this morning she woke up at approximately 04:30 with a left-sided facial droop. Patient notified her sisters , who called 911. Patient was last well prior to going to bed at 20:30 yesterday evening. She states that she went to hemodialysis yesterday and was given medication for low hgb. She also states that she was evaluated and treated for stroke about 1 month ago and was recently discharged from rehab about 1 week ago. She also reports 2 CVA last year but denies any residual defects. Patient denies any chest pain, shortness of breath, abdominal pain, vomiting, urinary symptoms, dizziness weakness, fever, chills or any other complaints. Patient regularly takes Plavix. Patient did not qualify for tPA due to ESRD. CT head was negative, but MRI brain showed 2 acute CVAs (6 x 12 mm acute infarct in the posterior limb of the internal capsule on the right. 3 mm acute infarct on the right side of the jerzy. ). CTA head and neck did not show significant abnormalities. Echo showed a potential PFO so bubble study was done which did not reveal a PFO. Patient was continued on ASA, Plavix, and statin. Allowed permissive HTN for the first 48 hours before restarting pain meds. Patient was seen by nephrology and continued dialysis MWF. Upon discharge, patient still had noticeable L facial droop. Speech was less slurred. Vitals were stable. She was transferred to the TCU for further care and therapy. Discharge Exam - Head Exam Head Exam: ATRAUMATIC, NORMAL INSPECTION Discharge Plan - Follow Up Plan Condition: FAIR Disposition: REHAB FACILITY/REHAB UNIT Instructions: Stroke, Type 2 Diabetes, Chronic Kidney Disease (DC) Additional Instructions: You are being discharged from [facility] to acute rehab at [facility]. Please continue medications as instructed. You will need to follow-up with you primary care provider, Dr. Mcgowan, within 3-5 days of discharge from rehab. Referrals: Etienne Mcgowan MD [Family Provider] - Ang Mora MD [Medical Doctor] - Kaleb Churchill MD [Staff Provider] - Nicky Magana MD [Staff Provider] - Ko Forde MD [Staff Provider] - <Lexi Connors - Last Filed: 04/28/18 17:13> Provider - Provider Date of Admission: 04/23/18 06:50 Attending physician: Rosalia Osborn DO Hospital Course - Lab Results Lab Results: Most Recent Lab Values WBC 5.3 10^3/ul (4.5-11.0) 04/27/18 05:30 RBC 4.12 10^6/uL (3.5-6.1) 04/27/18 05:30 Hgb 11.9 g/dL (12.0-16.0) L 04/27/18 05:30 Hct 35.2 % (36.0-48.0) L 04/27/18 05:30 MCV 85.4 fl (80.0-105.0) 04/27/18 05:30 MCH 28.9 pg (25.0-35.0) 04/27/18 05:30 MCHC 33.8 g/dl (31.0-37.0) 04/27/18 05:30 RDW 15.8 % (11.5-14.5) H 04/27/18 05:30 Plt Count 223 10^3/uL (120.0-450.0) 04/27/18 05:30 MPV 10.9 fl (7.0-11.0) 04/27/18 05:30 Gran % 37.7 % (50.0-68.0) L 04/27/18 05:30 Lymph % (Auto) 45.5 % (22.0-35.0) H 04/27/18 05:30 Radford % (Auto) 8.6 % (1.0-6.0) H 04/27/18 05:30 Eos % (Auto) 7.1 % (1.5-5.0) H 04/27/18 05:30 Baso % (Auto) 1.1 % (0.0-3.0) 04/27/18 05:30 Gran # 2.00 (1.4-6.5) 04/27/18 05:30 Lymph # (Auto) 2.4 (1.2-3.4) 04/27/18 05:30 Radford # (Auto) 0.5 (0.1-0.6) 04/27/18 05:30 Eos # (Auto) 0.4 (0.0-0.7) 04/27/18 05:30 Baso # (Auto) 0.06 K/mm3 (0.0-2.0) 04/27/18 05:30 PT 10.5 SECONDS (9.4-12.5) 04/23/18 06:00 INR 0.91 04/23/18 06:00 APTT 35.3 Seconds (25.1-36.5) 04/23/18 06:00 Sodium 138 mmol/L (132-148) 04/27/18 05:30 Potassium 5.3 mmol/L (3.6-5.0) H 04/27/18 05:30 Chloride 97 mmol/L (98-107) L 04/27/18 05:30 Carbon Dioxide 24 mmol/L (21-33) 04/27/18 05:30 Anion Gap 22 (10-20) H 04/27/18 05:30 BUN 57 mg/dL (7-21) H 04/27/18 05:30 Creatinine 14.1 mg/dl (0.7-1.2) H* 04/27/18 05:30 Est GFR ( Amer) 3 04/27/18 05:30 Est GFR (Non-Af Amer) 3 04/27/18 05:30 POC Glucose (mg/dL) 183 mg/dL (65-110) H 04/27/18 16:39 Random Glucose 153 mg/dL (70-110) H 04/27/18 05:30 Hemoglobin A1c 8.7 % (4.2-6.5) H 04/23/18 06:00 Calcium 9.1 mg/dL (8.4-10.5) 04/27/18 05:30 Phosphorus 6.7 mg/dL (2.5-4.5) H 04/27/18 05:30 Magnesium 2.6 mg/dL (1.7-2.2) H 04/27/18 05:30 Total Bilirubin 0.8 mg/dL (0.2-1.3) 04/27/18 05:30 AST 21 U/L (14-36) 04/27/18 05:30 ALT 13 U/L (7-56) 04/27/18 05:30 Alkaline Phosphatase 218 U/L (38-126) H 04/27/18 05:30 Troponin I 0.03 ng/mL D 04/23/18 06:00 Total Protein 7.6 g/dL (5.8-8.3) 04/27/18 05:30 Albumin 4.6 g/dL (3.0-4.8) 04/27/18 05:30 Globulin 3.0 gm/dL 04/27/18 05:30 Albumin/Globulin Ratio 1.5 (1.1-1.8) 04/27/18 05:30 Triglycerides 91 mg/dL (35-160) 04/23/18 06:00 Cholesterol 148 mg/dL (130-200) 04/23/18 06:00 LDL Cholesterol Direct 57 mg/dL (0-129) 04/23/18 06:00 HDL Cholesterol 46 mg/dL (29-60) 04/23/18 06:00 TSH 3rd Generation 1.77 mIU/mL (0.46-4.68) 04/24/18 05:20 Blood Type O POSITIVE 04/23/18 06:00 Antibody Screen Negative 04/23/18 06:00 BBK History Checked Patient has bt 04/23/18 06:00 Attending/Attestation - Attestation I have personally seen and examined this patient.: Yes I have fully participated in the care of the patient.: Yes I have reviewed all pertinent clinical information, including history, physical exam and plan: Yes Notes (Text): 04/28/18 16:33 attending note; Patient seen and examined with resident. Patient is a 52-year-old female past medical history significant for end-stage renal disease on dialysis Friday/Friday/ Friday, hypertension, TIA/CVA, type 2 diabetes, diabetic neuropathy, coronary artery disease, COPD, dyslipidemia, and GERD the presented to the emergency room with left-sided facial droop and slurred speech. 1. Acute CVA; Left-sided facial droop. Dysarthria. MRI brain shows 6 x 12 mm acute infarct in the posterior limb of the internal capsule on the right, 3 mm acute infarct on the right side of the jerzy. Continue PT/OT/speech and swallow. Continue aspirin, Plavix, and Lipitor. Continue to allow for permissive hypertension per neurology. Neurology evaluation appreciated. echocardiogram with bubble study did not show any PFO. cardiology evaluation appreciated. Continue aggressive physical therapy. 2. End-stage renal disease on dialysis. Continue dialysis Friday, Friday, Friday. patient got hemodialysis today.Continue nephrovite. 3. Hypertension. blood pressure is better controlled. Continue medication. 4. DM2. Continue insulin sliding scale. Continue to monitor Accu-Cheks. continue Levemir. 5.History of COPD. Not in acute exacerbation. 6. GERD. Continue Protonix. physical therapy evaluation appreciated. Case discussed with [employer]/mental health social worker in detail. Patient will be [facility]. PMD Notified. Case was discussed in detail with the patient regarding current diagnosis and treatment plan. All questions were answered. 04/28/18 17:10
--- NOTE | 2018-04-27 15:06 | CP.PCM.PN ---
Subjective - Date & Time of Evaluation Date of Evaluation: 04/27/18 Time of Evaluation: 15:05 - Subjective Subjective: Nephrology Consultation Note Assessment: Stable Acute CVA Diabetic chronic Kidney Disease (E11.22) Hypertensive Chronic Kidney Disease (I12.0) End stage renal disease (N18.6) dependence on hemodialysis (Z99.2) (MWF) via AVF Anemia (D64.9), Hyperphosphatemia (E83.39), Secondary Hyperparathyroidism (E21.1 ), HTN (I12.0) hx of CVAs Plan: Will plan for HD today as ordered per MW schedule. Continue with Nephrovite 1 tab/day. PRBC as needed for anemia. not on SANDEEP with dialysis as last Hb 11.3 Continue with phos binders BP control with meds as ordered. Patient on RAAS yuliet as losartan. permissive HTN as per neuro Glycemic control, Dialysis consistent diet Further work up/management as per primary team Dose meds/antibiotics (if needed) for ESRD status. Avoid fleets enema/magnesium based laxatives. neurology following pt being d/c to rehab at [facility] today. stable from renal perspective. Thanks for allowing me to participate in care of your patient. Will follow patient with you. Please call if any Qs. had d/w team Dr Con Tejada Office: [phone] CC: slurred speech HPI: pt is a 52 F with hx of ESRD on HD MWF @ [facility], last HD yesterday, DM , HTN, CVA, Anemia, hyperlipidemia came with left facial droop and slurred speech since yesterday. she is admited and being managed for CVA. renal consult for ESRD management. pt feels same denies CP/SOB or nausea/vomitting ROS: Noted events overnight. Patients feels better Denies chest pain, palpitation, shortness of breath, leg swelling. besides facial drop, denies weakness in extremities All other negative had cramps during HD. she refused to continue with it after 2 hrs 30 min. pt says her usual outpt HD time is 3 hrs Physical Examination: General Appearance: Comfortable, in no acute respiratory distress, co-operative . Vitals reviewed and noted as below Head; Atraumatic, normocephalic ENT: no ulcers no thrush. Tongue is midline. Oropharynx: no rash or ulcers. EYES: Pupils are equal, round and reactive to light accommodation. Eye muscles and extraocular movement intact. Sclera is anicteric. Neck; supple no lymphadenopathy, no thyromegaly or bruit Lungs: Normal respiratory rate/effort. Breath sounds bilateral equal and clear Heart: Normal rate. s1s2 normal. No rub or gallop. Extremities: no edema. No varicose veins Neurological: Patient is alert, awake and oriented to person, place and time. left facial droop with slurred speech improved Skin: Warm and dry. Normal turgor. No rash. Palpitation: Normal elasticity for age Abdomen: Abdomen is soft. Bowel sounds +. There is no abdominal tenderness, no guarding/rigidity or organomegaly Psych: normal insight and normal affect/mood MSK: no joint tenderness or swelling. Digits and nails normal, no deformity : kidney or bladder not palpable Access: AVF Labs/imaging reviewed. Past medical history, past surgical history, family history, social history, allergy reviewed and noted as below Family Hx: no hx of CKD. Non contributory Objective - Vital Signs/Intake and Output Vital Signs (last 24 hours): Temp Pulse Resp BP Pulse Ox 98.1 F 89 18 142/69 100 04/27/18 06:00 04/27/18 14:13 04/27/18 06:00 04/27/18 14:13 04/27/18 06:00 Intake and Output: 04/27/18 04/27/18 06:59 18:59 Intake Total 1400 Balance 1400 - Medications Medications: Current Medications Acetaminophen (Tylenol 325mg Tab) 650 mg PO Q6H PRN PRN Reason: Pain, Mild (1-3) Last Admin: 04/26/18 23:39 Dose: 650 mg Amlodipine Besylate (Norvasc) [address] [facility] Last Admin: 04/27/18 14:13 Dose: 10 mg Aspirin (Aspirin Chewable) [address] [facility] Last Admin: 04/27/18 14:13 Dose: 81 mg Atorvastatin Calcium (Lipitor) [address] [facility] Last Admin: 04/26/18 22:02 Dose: 80 mg Clonidine HCl (Catapres) 0.[address] [facility] Last Admin: 04/27/18 14:13 Dose: 0.1 mg Clopidogrel Bisulfate (Plavix) [address] [facility] Last Admin: 04/27/18 14:13 Dose: 75 mg Insulin Detemir (Levemir) [address] [facility] Last Admin: 04/26/18 22:03 Dose: 10 units Insulin Human Regular (Humulin R Med) 0 units SC [facility] PRN Reason: Protocol Last Admin: 04/27/18 11:56 Dose: Not Given Labetalol HCl (Trandate) [address] [facility] Last Admin: 04/27/18 14:13 Dose: 100 mg Losartan Potassium (Cozaar) [address] [facility] Last Admin: 04/27/18 14:13 Dose: 50 mg Pantoprazole Sodium (Protonix Ec Tab) [address] [facility] Last Admin: 04/27/18 05:57 Dose: 40 mg Sevelamer HCl (Renagel) 1,[address] [facility] Last Admin: 04/27/18 14:20 Dose: Not Given Vitamin B Complex/Vit C/Folic Acid (Nephro-Mila) [address] [facility] Last Admin: 04/27/18 14:13 Dose: 1 tab - Labs Labs: 04/27/18 05:30 04/27/18 05:30 PT 10.5 SECONDS (9.4-12.5) 04/23/18 06:00 INR 0.91 04/23/18 06:00 APTT 35.3 Seconds (25.1-36.5) 04/23/18 06:00
== END 2018-04-27 18:21 | DRG 64 ==
LOC: ED 05:36 → ERH 06:50 → 2RNO 08:29
PROVIDERS: ADMIT Internal Medicine; ATTEND Hospitalist
DX: I63.131 Cerebral infarction due to embolism of right carotid artery (principal); N18.6 End stage renal disease; I13.2 Hypertensive heart and chronic kidney disease with heart failure and with stage 5 chronic kidney disease, or end stage renal disease; N25.81 Secondary hyperparathyroidism of renal origin; T86.12 Kidney transplant failure; Q21.1 Atrial septal defect; R47.1 Dysarthria and anarthria; Z99.2 Dependence on renal dialysis; R29.810 Facial weakness; I25.10 Atherosclerotic heart disease of native coronary artery without angina pectoris; J44.9 Chronic obstructive pulmonary disease, unspecified; E11.22 Type 2 diabetes mellitus with diabetic chronic kidney disease; E11.43 Type 2 diabetes mellitus with diabetic autonomic (poly)neuropathy; E11.319 Type 2 diabetes mellitus with unspecified diabetic retinopathy without macular edema; K31.84 Gastroparesis; Z86.73 Personal history of transient ischemic attack (TIA), and cerebral infarction without residual deficits; Z87.891 Personal history of nicotine dependence; I48.0 Paroxysmal atrial fibrillation; E66.01 Morbid (severe) obesity due to excess calories; Z68.32 Body mass index [BMI] 32.0-32.9, adult; D64.9 Anemia, unspecified; E78.5 Hyperlipidemia, unspecified; E83.39 Other disorders of phosphorus metabolism; G89.29 Other chronic pain; H54.7 Unspecified visual loss; I34.0 Nonrheumatic mitral (valve) insufficiency; I50.9 Heart failure, unspecified; I65.23 Occlusion and stenosis of bilateral carotid arteries; K21.9 Gastro-esophageal reflux disease without esophagitis; Y83.0 Surgical operation with transplant of whole organ as the cause of abnormal reaction of the patient, or of later complication, without mention of misadventure at the time of the procedure; Z79.02 Long term (current) use of antithrombotics/antiplatelets; Z79.82 Long term (current) use of aspirin; Z82.3 Family history of stroke; Z83.3 Family history of diabetes mellitus; Z83.6 Family history of other diseases of the respiratory system; Z95.5 Presence of coronary angioplasty implant and graft